=== PATIENT | female | born 1970 | race Caucasian/White ===

== ENCOUNTER 2016-08-01 18:56 | Emergency (ER) | payer OTHER ==
[~2016-08-01] VITALS: Ht 160 cm; Wt 76.3 kg
[~2016-08-01 18:56] MED LIST: CALCTAB5 PO; GLC/500 PO; LEVO125T4 PO; MECL1TAB42 PO; MULT-240 PO; PRAZ1CAP10 PO; RISP3TAB3 PO; SERT50TA PO; TOPI100T45 PO; TRAZ1TAB8 PO; [UNRECOGNIZED DRUG - OTHER]
[2016-08-01 19:02] VITALS: TEMP 36.8; Ht 160 cm; Wt 76.3 kg
[2016-08-01] MEDS ORDERED: KETOROLAC TROMETHAMINE 30 MG/ML VIAL IV STA (19:06)
[2016-08-01 19:11] VITALS: O2SAT 97
[2016-08-01 19:33] LABS: BASO % 0.4 %; BASO ABS # 0.03 K/uL (0-0.2); COMPLETE YES; EOS % 1.2 %; HEMATOCRIT 39.3 % (37-47); IG% 0.1 %; LYMPH % 39.2 %; LYMPH ABS # 3.27 K/uL (1.2-3.4); MEAN CELL VOLUME 89.7 fL (80-100); MEAN CORPUSCULAR HEMOGLOBIN 31.3 pg (25-34); MEAN CORPUSCULAR HGB CONC 34.9 g/dl (32-36); MEAN PLATELET VOLUME 9.8 fL (7.4-10.4); MONO % 9.2 %; NEUT % 49.9 %; PLATELET COUNT 221 K/uL (130-400); RED BLOOD COUNT 4.38 M/uL (4.2-5.4); WHITE BLOOD COUNT 8.34 K/uL (4.8-10.8)
--- NOTE | 2016-08-01 19:39 | DIAGNOSTIC IMAGING REPORT ---
SINGLE VIEW CHEST CLINICAL HISTORY: Fever. Sepsis. Atypical chest pain. FINDINGS: An AP, portable, upright chest radiograph is compared to study dated 05/12/2014. The examination is degraded by portable technique and large body habitus. The cardiomediastinal silhouette is unremarkable. There are low lung volumes and bibasilar atelectasis. The lungs and pleural spaces are otherwise clear. No pneumothorax is seen. The bony thorax is grossly intact. IMPRESSION: No acute cardiopulmonary abnormality. Electronically signed by: Leroy Maria M.D. 08/01/2016 7:38 PM Dictated Date/Time: 08/01/2016 7:37 PM
[2016-08-01] MEDS ORDERED: HALO5TAB PO (19:43)
[2016-08-01] MEDS ORDERED: CGN1 PO (19:43)
[2016-08-01] MEDS ORDERED: RISP1TAB68 PO (19:43)
[2016-08-01] MEDS ORDERED: HALO10TA17 PO (19:43)
[2016-08-01] MEDS ORDERED: CHOL20009 PO (19:43)
[2016-08-01] MEDS ORDERED: TRAZ100T29 PO (19:43)
[2016-08-01] MEDS ORDERED: LEVO75TA PO (19:43)
[2016-08-01] MEDS ORDERED: CALC-393 PO (19:43)
[2016-08-01] MEDS ORDERED: TPM/50 PO (19:43)
[2016-08-01 19:44] LABS: PROTHROMBIN TIME (PATIENT) 10.9 SECONDS (9.0-12.0)
[2016-08-01] MEDS ORDERED: POLY335019 PO (19:46)
[2016-08-01] MEDS ORDERED: DOCU-94 PO (19:46)
[2016-08-01 19:48] LABS: ALT/SGPT 20 U/L (12-78); BLOOD UREA NITROGEN 8 mg/dl (7-18); BUN/CREATININE RATIO 8.1 (10-20); CALCIUM 9.1 mg/dl (8.5-10.1); CARBON DIOXIDE 23 mmol/L (21-32); CHLORIDE 108 mmol/L (98-107); GLUCOSE 104 mg/dl (70-99); POTASSIUM 3.5 mmol/L (3.5-5.1); SODIUM 142 mmol/L (136-145)
[2016-08-01 19:53] LABS: ALKALINE PHOSPHATASE 71 U/L (45-117); AST/SGOT 12 U/L (15-37)
--- NOTE | 2016-08-01 20:18 | EMERGENCY ROOM VISIT NOTE ---
History Report prepared by Jeana: Kaylan Murguia Under the Supervision of: Dr. Issac Bergman D.O. First contact with patient: 18:59 Chief Complaint: CHEST PAIN Stated Complaint: CHEST PAIN History of Present Illness The patient is a 46 year old female who presents to the Emergency Room with complaints of worsening chest pain with onset this evening. The patient is a resident at [facility] and her aide is with her. En route to the ED, the patient received one nitroglycerin dose and 324 mg of aspirin. The patient stated to nursing staff that these medications did not alleviate her pain. The patient states that her chest pain is worse when is moves or touches her chest. Source of History: patient Onset: this evening Position: chest Quality: other (chest pain) Timing: worsening Modifying Factors (Worsening): movement, other (touching her chest ) Review of Systems See HPI for pertinent positives & negatives. A total of 10 systems reviewed and were otherwise negative. Past Medical & Surgical Medical Problems: (1) Auditory hallucination (2) Auditory hallucinations (3) Bilateral tubal ligation (4) Chest pain (5) Depression (6) Depression (7) Depression (8) Depression with suicidal ideation (9) Diabetes mellitus (10) Feeling suicidal (11) Hypothyroidism (12) Mental retardation (13) Moderate recurrent major depression (14) Suicidal ideation (15) Suicidal ideation Family History FHx: cancer FHx: cardiovascular disease Social History Smoking Status: Former Smoker Alcohol Use: none Drug Use: none Marital Status: Housing Status: lives alone Occupation Status: disabled Current/Historical Medications Scheduled Benztropine Mesylate (Cogentin), 1 MG PO TID Calcium Carbonate (Calcium), 600 MG PO QPM Cholecalciferol (Vitamin D), 2,000 UNITS PO QPM Docusate Sodium (Colace), 1 CAP PO DAILY Haloperidol (Haldol), 5 MG PO DAILY Haloperidol (Haldol), 10 MG PO AMPM Levothyroxine Sodium (Synthroid), 75 MCG PO DAILY Metformin Hcl (Glucophage), 500 MG PO BID Multiple Vitamins W/ Minerals (Womens One Daily), 1 TABLET PO HS Prazosin Hcl (Prazosin), 1 MG PO QPM Risperidone (Risperdal), 1 MG PO HS Sertraline (Zoloft), 75 MG PO DAILY Topiramate (Topamax), 100 MG PO QPM Topiramate (Topamax), 50 MG PO QAM Trazodone Hcl (Trazodone), 100 MG PO HS Scheduled PRN Polyethylene Glycol 3350 (Miralax), 17 GM PO DAILY PRN for Constipation Allergies Coded Allergies: No Known Allergies (Verified , NONE, 03/01/14) PALM TREES Physical Exam Vital Signs Date Time Temp Pulse Resp B/P Pulse Ox O2 Delivery O2 Flow Rate FiO2 08/01/16 20:26 49 18 109/72 97 08/01/16 19:15 56 08/01/16 19:11 97 Room Air 08/01/16 19:02 97 Room Air 08/01/16 19:02 36.8 69 16 96/67 97 Room Air Physical Exam CONSTITUTIONAL/VITAL SIGNS: Reviewed / noted above. GENERAL: Non-toxic in appearance. INTEGUMENTARY: Warm, dry, and [place]. HEAD: Normocephalic. EYES: without scleral icterus or trauma. ENT/OROPHARYNX: clear and moist. LYMPHADENOPATHY/NECK: Is supple without lymphadenopathy or meningismus. RESPIRATORY: Lungs clear and equal. CARDIOVASCULAR: Regular rate and rhythm. GI/ABDOMEN: Soft and nontender. No organomegaly or pulsatile mass. No rebound or guarding. Normal bowel sounds. EXTREMITIES: Warm and well perfused. BACK: No CVA tenderness. NEUROLOGICAL: Intact without focal deficits. PSYCHIATRIC: normal affect. MUSCULOSKELETAL: Normally developed with good muscle tone. Medical Decision & Procedures ER Provider Diagnostic Interpretation: X ray results and stated below per my interpretation and radiology interpretation. SINGLE VIEW CHEST CLINICAL HISTORY: Fever. Sepsis. Atypical chest pain. FINDINGS: An AP, portable, upright chest radiograph is compared to study dated 05/12/2014. The examination is degraded by portable technique and large body habitus. The cardiomediastinal silhouette is unremarkable. There are low lung volumes and bibasilar atelectasis. The lungs and pleural spaces are otherwise clear. No pneumothorax is seen. The bony thorax is grossly intact. IMPRESSION: No acute cardiopulmonary abnormality. Electronically signed by: Leroy Maria M.D. 08/01/2016 7:38 PM Dictated Date/Time: 08/01/2016 7:37 PM Laboratory Results 08/01/16 18:45 Red Blood Count 4.38, Mean Corpuscular Volume 89.7, Mean Corpuscular Hemoglobin 31.3, Mean Corpuscular Hemoglobin Concent 34.9, Mean Platelet Volume 9.8, Neutrophils (%) (Auto) 49.9, Lymphocytes (%) (Auto) 39.2, Monocytes (%) (Auto) 9.2, Eosinophils (%) (Auto) 1.2, Basophils (%) (Auto) 0.4, Neutrophils # (Auto) 4.16, Lymphocytes # (Auto) 3.27, Monocytes # (Auto) 0.77, Eosinophils # (Auto) 0.10, Basophils # (Auto) 0.03 08/01/16 18:45 Test 08/01/16 18:45 White Blood Count 8.34 K/uL (4.8-10.8) Red Blood Count 4.38 M/uL (4.2-5.4) Hemoglobin 13.7 g/dL (12.0-16.0) Hematocrit 39.3 % (37-47) Mean Corpuscular Volume 89.7 fL (80-100) Mean Corpuscular Hemoglobin 31.3 pg (25-34) Mean Corpuscular Hemoglobin Concent 34.9 g/dl (32-36) Platelet Count 221 K/uL (130-400) Mean Platelet Volume 9.8 fL (7.4-10.4) Neutrophils (%) (Auto) 49.9 % Lymphocytes (%) (Auto) 39.2 % Monocytes (%) (Auto) 9.2 % Eosinophils (%) (Auto) 1.2 % Basophils (%) (Auto) 0.4 % Neutrophils # (Auto) 4.16 K/uL (1.4-6.5) Lymphocytes # (Auto) 3.27 K/uL (1.2-3.4) Monocytes # (Auto) 0.77 K/uL (0.11-0.59) Eosinophils # (Auto) 0.10 K/uL (0-0.5) Basophils # (Auto) 0.03 K/uL (0-0.2) RDW Standard Deviation 42.5 fL (36.4-46.3) RDW Coefficient of Variation 13.0 % (11.5-14.5) Immature Granulocyte % (Auto) 0.1 % Immature Granulocyte # (Auto) 0.01 K/uL (0.00-0.02) Prothrombin Time 10.9 SECONDS (9.0-12.0) Prothromb Time International Ratio 1.0 (0.9-1.1) Activated Partial Thromboplast Time 27.1 SECONDS (21.0-31.0) Partial Thromboplastin Ratio 1.0 Anion Gap 11.0 mmol/L (3-11) Est Creatinine Clear Calc Drug Dose 68.0 ml/min Estimated GFR () 77.7 Estimated GFR (Non- 67.0 BUN/Creatinine Ratio 8.1 (10-20) Calcium Level 9.1 mg/dl (8.5-10.1) Total Bilirubin 0.3 mg/dl (0.2-1) Direct Bilirubin < 0.1 mg/dl (0-0.2) Aspartate Amino Transf (AST/SGOT) 12 U/L (15-37) Alanine Aminotransferase (ALT/SGPT) 20 U/L (12-78) Alkaline Phosphatase 71 U/L (45-117) Total Creatine Kinase 69 U/L (26-192) Creatine Kinase MB < 0.5 ng/ml (0.5-3.6) Creatine Kinase MB Ratio (0-3.0) Troponin I < 0.015 ng/ml (0-0.045) Total Protein 8.0 gm/dl (6.4-8.2) Albumin 4.2 gm/dl (3.4-5.0) Lipase 286 U/L (73-393) Laboratory results as stated above per my review. Medications Administered Medications (Trade) Dose Ordered Sig/Darian Route Start Time Stop Time Status Last Admin Dose Admin Ketorolac Tromethamine (Toradol Inj) 30 mg NOW STAT IV 08/01/16 19:06 08/01/16 19:09 DC 08/01/16 19:30 30 MG ECG Indication: chest pain Rate (beats per minute): 59 Rhythm: sinus bradycardia Findings: no acute ischemic change, no ectopy ED Course 1903: Previous medical records were reviewed. The patient was evaluated in room B4. A complete history and physical examination was performed. 1905: Toradol 30 mg IV 2015: On reevaluation, the patient is doing well. I discussed the results and findings with the patient and her aide. They verbalized agreement of the treatment plan. The patient was discharged home. Medical Decision The patient is a 46 year old female who presents to the ED with complaints of chest pain. The patient states that her symptoms started about 1 hour ago. Her pain is in the retrosternal area and seems to be worse with palpation as well as with movements. She received nitroglycerin by EMS without improvement. She also was given aspirin by mouth. The patient has no additional complaints. Denies shortness of breath, fevers or recent illness. Denies any other complaints. Twelve-lead EKG reveals a sinus rhythm with sinus arrhythmia. No acute injury. Chest x-ray did not show acute disease. CBC is normal. Troponin is negative. Complete metabolic panel was unremarkable. Lipase is negative. The patient was told the results. She is felt to be stable for discharge per cheese treated with Toradol IV. Differential diagnosis: Etiologies such as cardiac ischemia, aortic dissection, pulmonary embolism, pneumonia, pneumothorax, musculoskeletal, infections, pericarditis, myocarditis , esophageal rupture, gastrointestinal, as well as others were entertained. Impression Primary Impression: Chest wall pain Scribe Attestation The scribe's documentation has been prepared under my direction and personally reviewed by me in its entirety. I confirm that the note above accurately reflects all work, treatment, procedures, and medical decision making performed by me. Departure Information Dispostion Home / Self-Care Referrals Destiny Rangel D.O. Patient Instructions ED Chest Wall Pain [facility], [facility] Additional Instructions Follow-up with your doctor for further care and evaluation in 1-5 days if symptoms persist. Return to the emergency department for worsening or new symptoms or any concerns. You have been examined and treated today on an emergency basis only. This is not a substitute for, or an effort to provide, complete comprehensive medical care. It is impossible to recognize and treat all injuries or illnesses in a single emergency department visit. It is therefore important that you follow up closely with your doctor. Call as soon as possible for an appointment.
[2016-08-01 20:26] VITALS: BP 109/72; PULSE 49; O2SAT 97
== END 2016-08-01 20:23 | disposition home or self-care (01) ==
LOC: EDBD 18:56 → C.EDB 18:58
DX: R07.89 Other chest pain (principal); E11.9 Type 2 diabetes mellitus without complications; E03.9 Hypothyroidism, unspecified; F32.9 Major depressive disorder, single episode, unspecified; F79 Unspecified intellectual disabilities; Z79.84 Long term (current) use of oral hypoglycemic drugs; Z79.899 Other long term (current) drug therapy; Z87.891 Personal history of nicotine dependence; Z80.9 Family history of malignant neoplasm, unspecified; Z82.49 Family history of ischemic heart disease and other diseases of the circulatory system

== ENCOUNTER 2016-10-11 10:49 | Inpatient (IN) | payer OTHER ==
[~2016-10-11] VITALS: Ht 157.5 cm; Wt 78.2 kg
[~2016-10-11 10:49] MED LIST changes: +BENZ-89 PO; +CALC-393 PO; -CALCTAB5 PO; +CHOL20009 PO; +DOCU-94 PO; +HALO10TA17 PO; +HALO5TAB PO; -LEVO125T4 PO; +LEVO75TA PO; -MECL1TAB42 PO; +POLY335019 PO; +RISP1TAB68 PO; -RISP3TAB3 PO; +TPM/50 PO; +TRAZ100T29 PO; -TRAZ1TAB8 PO; -[UNRECOGNIZED DRUG - OTHER]
[2016-10-11 11:49] LABS: BASO % 0.3 %; BASO ABS # 0.03 K/uL (0-0.2); COMPLETE YES; EOS % 0.1 %; HEMATOCRIT 40.2 % (37-47); IG% 0.2 %; LYMPH % 25.5 %; LYMPH ABS # 2.33 K/uL (1.2-3.4); MEAN CELL VOLUME 91.8 fL (80-100); MEAN CORPUSCULAR HEMOGLOBIN 31.1 pg (25-34); MEAN CORPUSCULAR HGB CONC 33.8 g/dl (32-36); MEAN PLATELET VOLUME 9.2 fL (7.4-10.4); MONO % 9.2 %; NEUT % 64.7 %; PLATELET COUNT 233 K/uL (130-400); RED BLOOD COUNT 4.38 M/uL (4.2-5.4); WHITE BLOOD COUNT 9.15 K/uL (4.8-10.8)
[2016-10-11 11:51] LABS: URINE APPEARANCE CLEAR (CLEAR); URINE BILIRUBIN NEG (NEG); URINE COLOR YELLOW; URINE NITRITE NEG (NEG); URINE SPECIFIC GRAVITY 1.006 (1.000-1.030); UROBILINOGEN NEG (NEG); ZZUR CULT IF INDIC CLEAN CATCH NO
[2016-10-11 11:58] LABS: MANUAL MICROSCOPIC REQUIRED? NO; REVIEW REQ? NO
[2016-10-11 12:16] LABS: BUN/CREATININE RATIO 11.4 (10-20); CREATININE 0.89 mg/dl (0.60-1.20)
[2016-10-11 12:24] LABS: BENZODIAZEPINE, URINE NEG (NEG); COCAINE,URINE NEG (NEG); PHENCYCLIDINE, URINE NEG (NEG)
[2016-10-11 12:25] LABS: ACETAMINOPHEN < 2 ug/ml (10-30)
[2016-10-11 12:26] LABS: ALB/GLOB RATIO 1.1 (0.9-2); THYROID STIMULATING HORMONE 3.77 uIu/ml (0.300-4.500)
[2016-10-11] MEDS ORDERED: BISMUTH SUBSALICYLATE PER ML OMNICELL CHARGE PO PRN (14:45)
[2016-10-11] MEDS ORDERED: MAGNESIUM HYDROXIDE SUSP 30 ML UDC PO PRN (14:45)
[2016-10-11] MEDS ORDERED: ALUMINUM/MAGNESIUM SUSP 30 ML UDC PO PRN (14:45)
[2016-10-11] MEDS ORDERED: ACETAMINOPHEN 325 MG TAB PO PRN (14:45)
[2016-10-11] MEDS ORDERED: SODIUM CHLORIDE 0.65% NA SOLN 45 ML (OCEAN) PRN (14:45)
[2016-10-11] MEDS ORDERED: POLYETHYLENE (MIRALAX) 17 GM PACK PO PRN (14:45)
[2016-10-11] MEDS ORDERED: hydrOXYzine HCL 25 MG TAB PO PRN ×2 (14:45)
[2016-10-11 14:51] VITALS: O2SAT 99
[2016-10-11] MEDS: HALOPERIDOL 5 MG TAB PO SCH ×2 (15:51→21:36)
[2016-10-11 16:19] VITALS: BP 116/82; TEMP 37.1; Ht 157.5 cm; Wt 78.2 kg
--- NOTE | 2016-10-11 17:01 | EMERGENCY ROOM VISIT NOTE ---
History Report prepared by Jeana: Shakila Gerber Under the Supervision of: Dr. Parveen Mitchell M.D. First contact with patient: 11:53 Chief Complaint: MENTAL HEALTH EVALUATION Stated Complaint: PSYCHIATRIC,HEARING VOICES History of Present Illness The patient is a 46 year old female who presents to the Emergency Room with complaints of persistent auditory hallucinations starting last night. She is here with staff from [facility]. She is hearing voices that tell her to hurt herself. She is trying to ignore them, but they are still telling her to cut her wrist. She feels like hurting herself because the voices are telling her to. She has heard voices in the past before. She cannot identify anything that might have triggered the voices again. The patient denies being in any pain. The staff says that there have not been any changes to her medications. She has not had any fever, vomiting, or illness recently. The history is limited due to the patient's intellectual disability. Source of History: patient, caregiver History Limited By: other (intellectual disability) Onset: last night Position: other (mental health) Quality: other (auditory hallucinations) Timing: other (persistent) Associated Symptoms: No fevers, No vomiting Note: Pt denies any pain. Review of Systems Limited due to the patient's intellectual disability. Past Medical & Surgical Medical Problems: (1) Auditory hallucination (2) Auditory hallucinations (3) Bilateral tubal ligation (4) Chest pain (5) Depression (6) Depression (7) Depression (8) Depression with suicidal ideation (9) Diabetes mellitus (10) Feeling suicidal (11) Hypothyroidism (12) Mental retardation (13) Moderate recurrent major depression (14) PCOS (polycystic ovarian syndrome) (15) Suicidal ideation (16) Suicidal ideation Family History FHx: cancer FHx: cardiovascular disease Social History Smoking Status: Former Smoker Alcohol Use: none Drug Use: none Marital Status: single Housing Status: lives alone Occupation Status: disabled Current/Historical Medications Scheduled Benztropine Mesylate (Cogentin), 1 MG PO TID Calcium Carbonate (Calcium), 600 MG PO QPM Cholecalciferol (Vitamin D), 2,000 UNITS PO QPM Docusate Sodium (Colace), 1 CAP PO DAILY Haloperidol (Haldol), 5 MG PO DAILY Haloperidol (Haldol), 10 MG PO AMPM Levothyroxine Sodium (Synthroid), 75 MCG PO DAILY Multiple Vitamins W/ Minerals (Womens One Daily), 1 TABLET PO QAM Prazosin Hcl (Prazosin), 1 MG PO QPM Risperidone (Risperdal), 1 MG PO HS Sertraline (Zoloft), 75 MG PO DAILY Topiramate (Topamax), 100 MG PO QPM Topiramate (Topamax), 50 MG PO QAM Trazodone Hcl (Trazodone), 100 MG PO HS Scheduled PRN Polyethylene Glycol 3350 (Miralax), 17 GM PO DAILY PRN for Constipation Allergies Coded Allergies: NO KNOWN DRUG ALLERGIES (Verified Allergy, Mild, `, 10/11/16) ALLERGIC PALM TREES [place] (Verified Allergy, Unknown, PALM TREE, 10/11/16) Physical Exam Vital Signs Date Time Temp Pulse Resp B/P Pulse Ox O2 Delivery O2 Flow Rate FiO2 10/11/16 12:44 85 18 118/71 99 Room Air 10/11/16 11:04 37.1 69 18 116/76 99 Room Air Physical Exam Constitutional: Vital signs reviewed. Eyes: Pupils are equal round reactive to light. Conjunctiva are noninjected. ENT: Pharynx is clear without erythema or exudate. Mucous membranes are moist. Neck supple without meningeal signs. Respiratory: Clear to auscultation bilaterally. Breath sounds are equal bilaterally. Cardiovascular: Regular rate and rhythm. No rubs or gallops. GI: Soft, nondistended and nontender. Bowel sounds are present. Musculoskeletal: No peripheral edema. No lacerations to the wrist. Integumentary: No cyanosis. Neurological: The patient is awake and alert. No focal deficits. Psychiatric: She is not tearful or manic. Medical Decision & Procedures Laboratory Results 10/11/16 11:40 Red Blood Count 4.38, Mean Corpuscular Volume 91.8, Mean Corpuscular Hemoglobin 31.1, Mean Corpuscular Hemoglobin Concent 33.8, Mean Platelet Volume 9.2, Neutrophils (%) (Auto) 64.7, Lymphocytes (%) (Auto) 25.5, Monocytes (%) (Auto) 9.2, Eosinophils (%) (Auto) 0.1, Basophils (%) (Auto) 0.3, Neutrophils # (Auto) 5.92, Lymphocytes # (Auto) 2.33, Monocytes # (Auto) 0.84, Eosinophils # (Auto) 0.01, Basophils # (Auto) 0.03 10/11/16 11:40 Test 10/11/16 11:30 10/11/16 11:40 Urine Color YELLOW Urine Appearance CLEAR (CLEAR) Urine pH 8.0 (4.5-7.5) Urine Specific [place] 1.006 (1.000-1.030) Urine Protein NEG (NEG) Urine Glucose (UA) NEG (NEG) Urine Ketones NEG (NEG) Urine Occult Blood NEG (NEG) Urine Nitrite NEG (NEG) Urine Bilirubin NEG (NEG) Urine Urobilinogen NEG (NEG) Urine Leukocyte Esterase SMALL (NEG) Urine WBC (Auto) 1-5 /hpf (0-5) Urine RBC (Auto) 0-4 /hpf (0-4) Urine Hyaline Casts (Auto) 1-5 /lpf (0-5) Urine Epithelial Cells (Auto) 5-10 /lpf (0-5) Urine Bacteria (Auto) NEG (NEG) Urine Opiates Screen NEG (NEG) Urine Methadone, Qualitative NEG (NEG) Urine Barbiturates NEG (NEG) Urine Phencyclidine (PCP) Level NEG (NEG) Ur Amphetamine/Methamphetamine NEG (NEG) MDMA (Ecstasy) Screen NEG (NEG) Urine Benzodiazepines Screen NEG (NEG) Urine Cocaine Metabolite NEG (NEG) Urine Marijuana (THC) NEG (NEG) White Blood Count 9.15 K/uL (4.8-10.8) Red Blood Count 4.38 M/uL (4.2-5.4) Hemoglobin 13.6 g/dL (12.0-16.0) Hematocrit 40.2 % (37-47) Mean Corpuscular Volume 91.8 fL (80-100) Mean Corpuscular Hemoglobin 31.1 pg (25-34) Mean Corpuscular Hemoglobin Concent 33.8 g/dl (32-36) Platelet Count 233 K/uL (130-400) Mean Platelet Volume 9.2 fL (7.4-10.4) Neutrophils (%) (Auto) 64.7 % Lymphocytes (%) (Auto) 25.5 % Monocytes (%) (Auto) 9.2 % Eosinophils (%) (Auto) 0.1 % Basophils (%) (Auto) 0.3 % Neutrophils # (Auto) 5.92 K/uL (1.4-6.5) Lymphocytes # (Auto) 2.33 K/uL (1.2-3.4) Monocytes # (Auto) 0.84 K/uL (0.11-0.59) Eosinophils # (Auto) 0.01 K/uL (0-0.5) Basophils # (Auto) 0.03 K/uL (0-0.2) RDW Standard Deviation 45.1 fL (36.4-46.3) RDW Coefficient of Variation 13.5 % (11.5-14.5) Immature Granulocyte % (Auto) 0.2 % Immature Granulocyte # (Auto) 0.02 K/uL (0.00-0.02) Anion Gap 7.0 mmol/L (3-11) Est Creatinine Clear Calc Drug Dose 75.7 ml/min Estimated GFR () 89.5 Estimated GFR (Non- 77.2 BUN/Creatinine Ratio 11.4 (10-20) Calcium Level 9.0 mg/dl (8.5-10.1) Total Bilirubin 0.3 mg/dl (0.2-1) Aspartate Amino Transf (AST/SGOT) 13 U/L (15-37) Alanine Aminotransferase (ALT/SGPT) 27 U/L (12-78) Alkaline Phosphatase 77 U/L (45-117) Total Protein 7.9 gm/dl (6.4-8.2) Albumin 4.1 gm/dl (3.4-5.0) Globulin 3.8 gm/dl (2.5-4.0) Albumin/Globulin Ratio 1.1 (0.9-2) Thyroid Stimulating Hormone (TSH) 3.770 uIu/ml (0.300-4.500) Salicylates Level 2.4 mg/dl (2.8-20) Acetaminophen Level < 2 ug/ml (10-30) Ethyl Alcohol mg/dL < 3.0 mg/dl (0-3) Laboratory results as reviewed by me. ED Course 1155: The patient was evaluated in room A7. A complete history and physical exam was performed. 1425: [address] [place] [address] has evaluated the patient. She will most likely be admitted to [address] [place] [address]. 1445: The patient has been accepted to [address] [place] [address] for further management. Medical Decision This is a 46-year-old female who presents for mental health evaluation. I did perform a limited focused review of portions of the patient's old chart on the electronic medical record. The patient was admitted in [address] [place] [address] for major depressive disorder with psychotic features. She is noted to have a moderate to severe intellectual disability. I did evaluate the patient as noted above. The patient is presenting with auditory command hallucinations and suicidal ideation. I did personally review the patient's urine drug screen as described above. I did order and review the patient's blood work as noted in the electronic medical record. I did medically clear the patient. She was evaluated by [facility]. and admitted to S behavioral unit for inpatient psychiatric care. Impression Primary Impression: Mood disorder Additional Impression: Suicidal ideation Scribe Attestation The scribe's documentation has been prepared under my direct and personally reviewed by me in its entirety. I confirm that the note above accurately reflects all work, treatment, procedures, and medical decision making performed by me. Departure Information Dispostion Mental Health Acute Care Referrals Destiny Rangel D.O. (PCP) Forms HOME CARE DOCUMENTATION FORM, IMPORTANT VISIT INFORMATION Patient Instructions My [facility] Problem Qualifiers
[2016-10-11] MEDS ORDERED: BENZTROPINE MESYLATE 1 MG TAB PO SCH (21:00)
[2016-10-11] MEDS: TOPIRAMATE 100 MG TAB PO SCH (21:35)
[2016-10-11] MEDS: CALCIUM CARBONATE 1250MG TAB PO SCH (21:35)
[2016-10-11] MEDS: RISPERIDONE 1 MG TAB PO SCH (21:36)
[2016-10-11] MEDS: BENZTROPINE MESYLATE 1 MG TAB PO SCH (21:36)
[2016-10-11] MEDS: CHOLECALCIFEROL 1000 INTER.UNIT TAB PO SCH (21:36)
[2016-10-11] MEDS: TRAZODONE HCL 100 MG TAB PO SCH (21:36)
[2016-10-11] MEDS: PRAZOSIN HCL 1 MG CAP PO SCH (21:37)
[2016-10-12 07:07] VITALS: BP_SYST 118; BP_SYST 122; BP_DIAS 78; BP_DIAS 82; PULSE 54; PULSE 62; TEMP 36.4
[2016-10-12] MEDS: LEVOTHYROXINE 75 MCG TAB PO SCH (08:16)
[2016-10-12] MEDS: DOCUSATE SODIUM 100 MG CAP PO SCH (09:00)
[2016-10-12] MEDS: HALOPERIDOL 5 MG TAB PO SCH ×3 (09:00→21:21)
[2016-10-12] MEDS: BENZTROPINE MESYLATE 1 MG TAB PO SCH ×3 (09:00→21:21)
[2016-10-12] MEDS: CEROVITE ADV FORMULA TAB PO SCH (09:01)
[2016-10-12] MEDS: TOPIRAMATE 25 MG TAB PO SCH (09:01)
[2016-10-12] MEDS: SERTRALINE HCL 50 MG TAB PO SCH (09:02)
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
[2016-10-12] MEDS ORDERED: TUBERCULIN SKIN TEST 5 TU in SYRINGE 0 ML ID ONE (14:00)
[2016-10-12] MEDS ORDERED: METFORMIN HCL 500 MG TAB PO SCH (17:45)
[2016-10-12] MEDS: PRAZOSIN HCL 1 MG CAP PO SCH (21:21)
[2016-10-12] MEDS: TOPIRAMATE 100 MG TAB PO SCH (21:21)
[2016-10-12] MEDS: CHOLECALCIFEROL 1000 INTER.UNIT TAB PO SCH (21:21)
[2016-10-12] MEDS: TRAZODONE HCL 100 MG TAB PO SCH (21:21)
[2016-10-12] MEDS: CALCIUM CARBONATE 1250MG TAB PO SCH (21:21)
[2016-10-12] MEDS: RISPERIDONE 1 MG TAB PO SCH (21:23)
[2016-10-13 07:08] VITALS: BP_SYST 103; BP_SYST 110; BP_DIAS 68; BP_DIAS 72; PULSE 48; PULSE 69; TEMP 36.4
[2016-10-13] MEDS: LEVOTHYROXINE 75 MCG TAB PO SCH (07:48)
[2016-10-13] MEDS: BENZTROPINE MESYLATE 1 MG TAB PO SCH ×3 (08:03→21:17)
[2016-10-13] MEDS: CEROVITE ADV FORMULA TAB PO SCH (08:04)
[2016-10-13] MEDS: DOCUSATE SODIUM 100 MG CAP PO SCH (08:04)
[2016-10-13] MEDS: HALOPERIDOL 5 MG TAB PO SCH ×3 (08:04→21:17)
[2016-10-13] MEDS: TOPIRAMATE 25 MG TAB PO SCH (08:05)
[2016-10-13] MEDS: SERTRALINE HCL 50 MG TAB PO SCH (08:06)
[2016-10-13 08:11] LABS: CHOLESTEROL/HDL RATIO 5.1
--- NOTE | 2016-10-13 15:06 | Psychiatric Progress Notes ---
Progress Note Date of Service Oct 13, 2016. Interval History Milady Loredo is a 46-year-old female white female who currently lives in [facility]. Patient has a history of severe psychotic depression and mental retardation. Milady Loredo was admitted on a 201 voluntary commitment and reported auditory hallucinations telling her to hurt herself by cutting. She was unable to contract for safety outside the hospital. Patient is a limited historian due to her intellectual disability. Chief Complaint "pretty good today". Subjective Patient was seen & assessed interval progress reviewed with nursing. Patient has been participating in unit programming. She had reported a depressed mood to staff yesterday and rated her mood as 2/10. Today she describes her mood as "good." She says that she is no longer hearing voices telling her to harm herself. She denies anxiety. She denies any side effects from her medication. She can not explain why she is taking both Haldol and Risperdal. She reports that she slept well even though staff report that she slept for 5.5 hours. Review of Systems Constitutional: No chills, No fatigue, No fever, No problem reported, No sweats , No weakness, No weight loss Cardiovascular: No PND, No chest pain, No claudication, No edema, No orthopnea , No palpitations, No problem reported Neurologic: No balance problems, No memory loss, No numbness/tingling, No paralysis, No problem reported, No vertigo, No weakness Sleep Information Total Hours of Sleep: 5.50 Meal Information Percent of Breakfast Consumed: 100 Percent of Lunch Consumed: 100 Percent of Dinner Consumed: 100 Mental Status Exam During interview pt is: alert and oriented, cooperative Appearance: appropriately dressed, disheveled, other (older than stated age) Eye contact is: good Motor behavior is: steady gait & station Speech: normal in rate, rhythm & volume, other (occcasional slow response) Affect: mood congruent, blunted Mood is: other (patient describes mood as "good.") Thought process: concrete Suicidal thought are: denied Homicidal thoughts are: denied Hallucinations: denies auditory, denies visual Cognition: memory grossly intact, attention grossly intact Intelligence estimated to be: below average Insight: limited Judgement: limited Impression Patient is a 46 year old female with an extensive history of auditory hallucinations telling her to harm herself in some way. Today she reports that she is no longer hearing voices telling her to harm herself. We will continue to assess this patient who has demonstrated this pattern in the past and if she continues to deny thoughts or harming herself or voices telling her to harm herself, she will discharge back to the [facility]. She requires supportive care and coordination with her current outpatient providers. Plan (1) Auditory hallucinations 10/12 1. Patient admitted to a locked unit and placed on q 15 minute safety checks 2. Continue outpatient medications at home doses. Historically patient has not benefited from changes to her medications as her symptoms tend to resolve with supportive treatment. 3. Monitoring on an atypical antipsychotic: FBS and lipid profile in am 4. Meeting with case managers - Coordinate care with current outpatient providers including SHAWN Melendez and psych provider, Christine HERNÁNDEZ at the [facility] psych clinic. 5. Encourage participation in unit groups and programming. 10/13 Continue current medications. Fasting labs: FBS 94; Triglycerides and cholesterol both elevated at 211. Discharge / Aftercare Planning Primary Care Physician: Name: Dr. Rangel Therapist: Name: [facility] Psych Clinic Visual Journalist: Name: Milady Arias, U Supports Coordinator for [facility] at [facility] Visit Code E&M Code: 01618 Inventory Assets Strengths: willingness for treatment supportive living environment good relationship with outpatient providers Needs: Use her coping skills and safety plan. Risk Factors Assessment /single/: Yes Mental Health Diagnoses: Yes Substance use disorders: No Previous attempt: No Family history of suicide: No Previous psychiatric stay: Yes Hopelessness: No Smoker: No Protective Factors Assessment Buddhist beliefs: No : No Responsible for young children: No Stable relationships: Yes Good rapport with provider: Yes Data Vital Signs Last 24 Hrs: Date Time Temp Pulse Resp B/P Pulse Ox O2 Delivery O2 Flow Rate FiO2 10/13/16 07:08 36.4 48 18 103/68 69 110/72 Meds Administered Last 24 Hrs: Meds Administered (Past 24Hrs) Medications (Trade) Dose Ordered Sig/Darian Route Start Time Stop Time Status Last Admin Dose Admin Docusate Sodium (coLACE CAP) 100 mg DAILY PO 10/12/16 09:00 11/11/16 08:59 10/13/16 08:04 100 MG Haloperidol (Haldol Tab) 5 mg DAILY@1500 PO 10/11/16 15:18 11/10/16 15:17 10/12/16 15:06 5 MG Levothyroxine Sodium (Synthroid Tab) 75 mcg DAILYBB PO 10/12/16 08:00 11/11/16 07:59 10/13/16 07:48 75 MCG Multivitamins/ Minerals (Multivitamin W/ Minerals Tab) 1 tab QAM PO 10/12/16 09:00 11/11/16 08:59 10/13/16 08:04 1 TAB Risperidone (Risperdal Tab) 1 mg HS PO 10/11/16 21:00 11/10/16 20:59 10/12/16 21:23 1 MG Sertraline HCl (Zoloft Tab) 75 mg DAILY PO 10/12/16 09:00 11/11/16 08:59 10/13/16 08:06 75 MG Topiramate (Topamax Tab) 50 mg QAM PO 10/12/16 09:00 11/11/16 08:59 10/13/16 08:05 50 MG Topiramate (Topamax Tab) 100 mg QPM PO 10/11/16 21:00 11/10/16 20:59 10/12/16 21:21 100 MG Trazodone HCl (Desyrel Tab) 100 mg HS PO 10/11/16 21:00 11/10/16 20:59 10/12/16 21:21 100 MG Calcium Carbonate (oS-Ishaan 500 TAB) 1,250 mg QPM PO 10/11/16 21:00 11/10/16 20:59 10/12/16 21:21 1,250 MG Cholecalciferol (Vitamin D Tab) 2,000 inter.unit QPM PO 10/11/16 21:00 11/10/16 20:59 10/12/16 21:21 2,000 INTER.UNIT Prazosin HCl (Prazosin) 1 mg HS PO 10/11/16 22:00 11/10/16 21:59 10/12/16 21:21 1 MG Haloperidol (Haldol Tab) 10 mg BID PO 10/11/16 22:00 11/10/16 21:59 10/13/16 08:04 10 MG Benztropine Mesylate 1 mg 1 mg 0900,1500,2200 PO 10/11/16 22:00 11/10/16 21:59 10/13/16 08:03 1 MG Tuberculin PPD/ Syringe (Ppd Skin Test/ Syringe) 0.1 ml @ 0 mls/hr ONE ONCE ID 10/12/16 14:00 10/12/16 14:01 DC 10/12/16 14:20 0.1 MLS/HR Lab Results Last 24 Hrs: Last 24 Hours Test 10/13/16 07:25 Fasting Glucose 94 mg/dl Triglycerides Level 211 mg/dl Cholesterol Level 211 mg/dl HDL Cholesterol 41 mg/dl LDL Cholesterol, Calculated 128 mg/dl VLDL Cholesterol, Calculated 42 mg/dl Cholesterol/HDL Ratio 5.1
[2016-10-13] MEDS: TOPIRAMATE 100 MG TAB PO SCH (21:17)
[2016-10-13] MEDS: CHOLECALCIFEROL 1000 INTER.UNIT TAB PO SCH (21:17)
[2016-10-13] MEDS: PRAZOSIN HCL 1 MG CAP PO SCH (21:17)
[2016-10-13] MEDS: TRAZODONE HCL 100 MG TAB PO SCH (21:17)
[2016-10-13] MEDS: CALCIUM CARBONATE 1250MG TAB PO SCH (21:17)
[2016-10-13] MEDS: RISPERIDONE 1 MG TAB PO SCH (21:18)
[2016-10-14 06:50] VITALS: BP_SYST 113; BP_SYST 116; BP_DIAS 79; BP_DIAS 80; PULSE 62; PULSE 85; TEMP 36.4
[2016-10-14] MEDS: LEVOTHYROXINE 75 MCG TAB PO SCH (07:56)
[2016-10-14] MEDS: DOCUSATE SODIUM 100 MG CAP PO SCH (08:34)
[2016-10-14] MEDS: BENZTROPINE MESYLATE 1 MG TAB PO SCH (08:34)
[2016-10-14] MEDS: HALOPERIDOL 5 MG TAB PO SCH (08:34)
[2016-10-14] MEDS: SERTRALINE HCL 50 MG TAB PO SCH (08:35)
[2016-10-14] MEDS: TOPIRAMATE 25 MG TAB PO SCH (08:35)
[2016-10-14] MEDS: CEROVITE ADV FORMULA TAB PO SCH (08:35)
--- NOTE | 2016-10-14 11:21 | Discharge Instructions ---
Discharge Information Report Includes Report will include the: Discharge Instructions & Summary Admission Admission Date / Time: Oct 11, 2016 at 14:46 Reason for Admission: Psychotic Disorder Discharge Discharge Diagnosis / Problem: Major depression, recurrent, severe with psychosis. Intellectual disability Condition at Discharge: Fair Discharge Goals Goal(s): Improve function, Improve disease control, Learn about illness, Therapeutic intervention Activity Recommendations Activity Limitations: per Instructions/Follow-up section . Instructions / Follow-Up Instructions / Follow-Up . SPECIAL CARE INSTRUCTIONS: 1. Follow through with your scheduled aftercare appointments. If unable to keep an appointment, please call to reschedule. 2. Take your medication only as prescribed. Medication should not be changed or stopped without the approval of your doctor. In the event of worsening symptoms or concerns about side effects, contact your doctor immediately. 3. Utilize new healthy coping skills, anger management skills, and stress management skills learned during your hospitalization. Journal feelings and process them with a support person. Identify stressors or situations that may result in relapse, deterioration or inappropriate behaviors and develop a plan to deal with those issues. 4. If your coping skills are ineffective and you are in crisis, contact your outpatient providers for direction. If unable to reach your providers, please call the [facility] AT or go to the closest Emergency Room. 5. Avoid alcohol and un-prescribed drugs. 6. You have been provided with the Mental Health Advance Directives Pamphlet for your review. AFTERCARE APPOINTMENTS: * Please call your insurance company prior to your scheduled appointment to confirm your aftercare providers are covered. Take your insurance information to your appointments. . Discharge / Aftercare Planning Primary Care Physician: Name: Dr. Rangel Therapist: Name Of Therapist: [facility] Roll Icer Machine: Name: Milday Arias, [facility] Supports Coordinator for Elysia PATEL at [facility] Partial or Psych Rehab: Name: Dr. You, [facility] . Follow-Up Care Plan for Follow-Up Care: See above. Current Hospital Diet Patient's current hospital diet: Regular Diet Discharge Diet Recommended Diet: Regular Diet Procedures Procedures Performed: No Pending Studies Pending Studies at Discharge: No Medical Emergencies . Who to Call and When: Medical Emergencies: For questions or emergencies related to your hospital stay, please contact the Inpatient Behavioral Health Unit at [phone]. A quantitative developer is on-call 11/01 for the Behavioral Health Unit for emergencies At any time you feel your situation is an emergency, you may also call 911 immediately. . Non-Emergent Contact Non-Emergency issues call your: Primary Care Provider, Psychiatrist, Therapist , Roll Icer Machine Past History Medical & Surgical History: (1) Diabetes mellitus (2) Hypothyroidism Advance Directives Existing Advance Directive: No Do You Have an Existing Mental: No Existing Living Will: No Existing Power of Parts Administrator: No Advance Directives Info Given: To Pt/S.O. Advance Directives Reason: Declines as Mental Health Visit. Discharge Summary Admission HPI Per the Admitting provider: The patient is a 46 year old female who presented to the Emergency Room on 10/11 with complaints of persistent auditory hallucinations starting the day before. She lives in the [facility] and was brought in by staff from [facility]. She reports that she is hearing voiced telling her to kill herself by "breaking or cutting one of those cards" and using it to cut her arm and she makes vertical cutting motions are her forearm. She reports that she has been trying to ignore the voices but they continue and she did not feel safe. Patient has been admitted to in the multiple times in the past for similar symptoms. Due to a history of frequent visits to the ER for complaints of auditory hallucinations, a plan was put in place for her to contact her immigration case manager and use her coping skills before coming to the emergency room. This has seemed to decrease the number of ER visits over the past couple years. Today she reports that she continues to hear voices telling her to harm herself. She is trying to ignore them. She cannot identify any trigger for this episode of hallucinations. She reports that her mood has been "good." She reports that she hasn't been sleeping well "maybe 3 hours" but can not tell me how long this has been the case. She does report some dreams about her mother and brother and then says "they are good dreams." She reports "I slept good here last night." Her appetite is good, She reports enjoying activities such as "art class." She denies anxiety or panic. She reports that she has been taking her medication with help from [facility] staff. She sees Marycruz HERNÁNDEZ at the [facility] psych clinic but does not know when her last appointment was but thinks she has one in 2 weeks. Admission Exam Per the Admitting provider: Please see admission H&P. Consultations None. Hospital Course (1) Auditory hallucinations Diagnosis is MDD, recurrent, severe with psychosis and intellectual disability 10/12 1. Patient admitted to a locked unit and placed on q 15 minute safety checks 2. Continue outpatient medications at home doses. Historically patient has not benefited from changes to her medications as her symptoms tend to resolve with supportive treatment. 3. Monitoring on an atypical antipsychotic: FBS and lipid profile in am 4. Meeting with immigration case manager - Coordinate care with current outpatient providers including SHAWN Melendez and psych provider, Christine HERNÁNDEZ at the [facility] psych clinic. 5. Encourage participation in unit groups and programming. 10/13 Continue current medications. Fasting labs: FBS 94; Triglycerides and cholesterol both elevated at 211. 10/14 AH and SI have resolved. Mood consistently good. No med changes made, [facility] staff to pick her up today. Risk Factors Assessment : Yes /single/: Yes Higher / Fall in social status: No Access to guns: No Health problems: Yes Mental Health Diagnoses: Yes Substance use disorders: No Previous attempt: No Family history of suicide: No Previous psychiatric stay: Yes Hopelessness: No Smoker: No Protective Factors Assessment Buddhism beliefs: No : No Responsible for young children: No Employed: No Stable relationships: Yes Good rapport with provider: Yes Absence of risk factors above: Yes (risk factors were mitigated by admitting the patient to the hospital, monitoring her symptoms on the inpatient unit, adjusting her chronic medical conditions, involving her in groups and therapy on the unit, working on healthy coping skills and her discharge safety plan, coordinating care with her long-term staff, and providing a safe environment. Her auditory hallucinations and suicidal thoughts resolved quickly in the setting of the inpatient unit, and she is requesting discharge today, which long-term staff are in agreement with. She is no longer at acute risk of harm to herself, she can be managed as an outpatient at this time. He does not have significant risk factors for harm to others.) Day of Discharge Assessment Hospital course: The patient was calm and cooperative throughout her hospital stay. Her auditory hallucinations and suicidal thoughts resolved quickly in the supportive milieu of the unit. She was continued on her home medications without any changes, and appeared to tolerate these well. She attended and participated appropriately in groups and therapy on the unit. Her interactions with staff and peers were appropriate, and she performed her ADLs independently. Although her mood was initially low, it quickly improved, and her affect was bright and reactive. She ate 100% of meals, and slept well throughout her stay. Day of discharge assessment: The patient states that her mood is "good." She denies auditory hallucinations and suicidal thoughts, stating that she has not experienced these symptoms since the first day she was admitted. She denies any problems with her medications, and feels they're helpful. She cannot offer any insight into triggers that might have exacerbated her symptoms prior to admission. She would like to leave today and return to the long-term, and staff are scheduled to pick her up after lunch. She denies any concerns with discharge. Well nourished, well developed WF appearing stated age. Casually dressed and adequately groomed. Calm and cooperative. Seated in NAD, with fair eye contact and no abnormal movements. Speech is normal rate, volume, and tone. Mood is "good," and affect is stable and congruent. Thoughts are concrete but goal directed. The patient denied suicidal and homicidal ideation and was able to safety plan. No paranoia, delusions, or hallucinations, and did not appear to be responding to internal stimuli. Cognition is concrete, and intelligence is below average. Alert and oriented to person, place and time. Insight and and judgment are fair. Laboratory Test 10/11/16 11:30 10/11/16 11:40 10/13/16 07:25 Urine Color YELLOW Urine Appearance CLEAR Urine pH 8.0 Urine Specific Anthony 1.006 Urine Protein NEG Urine Glucose (UA) NEG Urine Ketones NEG Urine Occult Blood NEG Urine Nitrite NEG Urine Bilirubin NEG Urine Urobilinogen NEG Urine Leukocyte Esterase SMALL Urine WBC (Auto) 1-5 Urine RBC (Auto) 0-4 Urine Hyaline Casts (Auto) 1-5 Urine Epithelial Cells (Auto) 5-10 Urine Bacteria (Auto) NEG Urine Synthetic Stimulants Pending Urine Opiates Screen NEG Urine Methadone, Qualitative NEG Urine Barbiturates NEG Urine Phencyclidine (PCP) Level NEG Ur Amphetamine/Methamphetamine NEG MDMA (Ecstasy) Screen NEG Urine Benzodiazepines Screen NEG Urine Cocaine Metabolite NEG Cannabinoids Comment Pending Urine Synthetic Cannabinoids Pending Ur Synthetic Cannabinoids Confirm Pending Urine Marijuana (THC) NEG White Blood Count 9.15 Red Blood Count 4.38 Hemoglobin 13.6 Hematocrit 40.2 Mean Corpuscular Volume 91.8 Mean Corpuscular Hemoglobin 31.1 Mean Corpuscular Hemoglobin Concent 33.8 Platelet Count 233 Mean Platelet Volume 9.2 Neutrophils (%) (Auto) 64.7 Lymphocytes (%) (Auto) 25.5 Monocytes (%) (Auto) 9.2 Eosinophils (%) (Auto) 0.1 Basophils (%) (Auto) 0.3 Neutrophils # (Auto) 5.92 Lymphocytes # (Auto) 2.33 Monocytes # (Auto) 0.84 Eosinophils # (Auto) 0.01 Basophils # (Auto) 0.03 RDW Standard Deviation 45.1 RDW Coefficient of Variation 13.5 Immature Granulocyte % (Auto) 0.2 Immature Granulocyte # (Auto) 0.02 Sodium Level 144 Potassium Level 4.0 Chloride Level 110 Carbon Dioxide Level 27 Anion Gap 7.0 Blood Urea Nitrogen 10 Creatinine 0.89 Est Creatinine Clear Calc Drug Dose 75.7 Estimated GFR () 89.5 Estimated GFR (Non- 77.2 BUN/Creatinine Ratio 11.4 Random Glucose 94 Calcium Level 9.0 Total Bilirubin 0.3 Aspartate Amino Transferase (AST) 13 Alanine Aminotransferase (ALT) 27 Alkaline Phosphatase 77 Total Protein 7.9 Albumin 4.1 Globulin 3.8 Albumin/Globulin Ratio 1.1 Thyroid Stimulating Hormone (TSH) 3.770 Salicylates Level 2.4 Acetaminophen Level < 2 Ethyl Alcohol mg/dL < 3.0 Fasting Glucose 94 Triglycerides Level 211 Cholesterol Level 211 HDL Cholesterol 41 LDL Cholesterol, Calculated 128 VLDL Cholesterol, Calculated 42 Cholesterol/HDL Ratio 5.1 Total Time Total Time Spent (min): Greater than 30 minutes Total Time Included: examination of the patient, discharge planning, medication reconciliation Tobacco Cessation at Discharge Smoking Status: Former Smoker FDA approved Prescription: non-smoker
[2016-10-14] MEDS ORDERED: PPD CHECK ONE (14:00)
[2016-10-16 09:33] LABS: SYNTHETIC CANNABINOIDS QL URIN NEGATIVE (Negative)
[2017-02-14] MEDS ORDERED: NAPR250T3 PO (06:02)
== END 2016-10-14 14:50 | disposition home or self-care (01) | DRG 885 ==
LOC: C.EDB 10:50 → C.MHU 14:46
PROVIDERS: ADMIT Psychiatry & Neurology Psychiatry; ATTEND Psychiatry & Neurology Psychiatry
DX: F33.3 Major depressive disorder, recurrent, severe with psychotic symptoms (principal); R45.851 Suicidal ideations; F79 Unspecified intellectual disabilities; E03.9 Hypothyroidism, unspecified; E28.2 Polycystic ovarian syndrome; Z87.891 Personal history of nicotine dependence; Z79.899 Other long term (current) drug therapy

== ENCOUNTER 2016-12-08 23:32 | Emergency (ER) | payer OTHER ==
[~2016-12-08 23:32] MED LIST changes: -GLC/500 PO
[2016-12-08 23:42] VITALS: TEMP 36.7
[2016-12-09 00:12] LABS: HEMATOCRIT 38.1 % (37-47); MEAN CELL VOLUME 90.9 fL (80-100); MEAN CORPUSCULAR HEMOGLOBIN 30.5 pg (25-34); MEAN CORPUSCULAR HGB CONC 33.6 g/dl (32-36); MEAN PLATELET VOLUME 9.1 fL (7.4-10.4); PLATELET COUNT 202 K/uL (130-400); RED BLOOD COUNT 4.19 M/uL (4.2-5.4); WHITE BLOOD COUNT 9.87 K/uL (4.8-10.8)
[2016-12-09] MEDS ORDERED: FLNIN/ NAE (00:12)
[2016-12-09 00:28] LABS: BLOOD UREA NITROGEN 9 mg/dl (7-18); BUN/CREATININE RATIO 10.2 (10-20); CALCIUM 9.5 mg/dl (8.5-10.1); CARBON DIOXIDE 26 mmol/L (21-32); CHLORIDE 110 mmol/L (98-107); CREATININE 0.88 mg/dl (0.60-1.20); GLUCOSE 92 mg/dl (70-99); POTASSIUM 3.8 mmol/L (3.5-5.1); SODIUM 144 mmol/L (136-145)
--- NOTE | 2016-12-09 00:32 | EMERGENCY ROOM VISIT NOTE ---
History Report prepared by Jeana: Bienvenido Baez Under the Supervision of: Dr. Christina Collins D.O. First contact with patient: 23:50 Chief Complaint: MENTAL HEALTH EVALUATION Stated Complaint: SUICIDAL THOUGHTS History of Present Illness The patient is a 46 year old female who presents to the Emergency Room from [facility] with complaints of persistent suicidal ideation occurring today. The patient refused to take her medications last night. As per Ary, staff member from [facility], the patient was told that she needs to start taking her medications again which made her anxious and depression. She told [facility] staff that she was feeling suicidal and wanted to jump off of the roof. She lives in the basement of her building and does not have access to the roof. The patient currently continues to complain of suicidal ideation. She denies any history of suicide attempt. The patient also complains of hearing voices. She was recently hospitalized for a mental health evaluation and currently feels as though she needs to be hospitalized again. She was evaluated by [facility] on field and brought to the Emergency Room. She lives alone. She reports a normal appetite and a normal fluid intake. The patient denies chest pain, shortness of breath, nausea, vomiting, abdominal pain, lower extremity swelling, or any other complaints. She also denies any drug or alcohol use. Source of History: patient Onset: today Position: other (global) Quality: other (suicidal ideation) Timing: other (persistent) Associated Symptoms: No chest pain, No SOB, No nausea, No vomiting, No abdominal pain Review of Systems See HPI for pertinent positives & negatives. A total of 10 systems reviewed and were otherwise negative. Past Medical & Surgical Medical Problems: (1) Auditory hallucination (2) Auditory hallucinations (3) Bilateral tubal ligation (4) Chest pain (5) Depression (6) Depression (7) Depression (8) Depression with suicidal ideation (9) Diabetes mellitus (10) Feeling suicidal (11) Hypothyroidism (12) Mental retardation (13) Moderate recurrent major depression (14) PCOS (polycystic ovarian syndrome) (15) Suicidal ideation (16) Suicidal ideation Family History FHx: cancer FHx: cardiovascular disease Social History Smoking Status: Never Smoker Alcohol Use: none Drug Use: none Marital Status: single Housing Status: lives alone Occupation Status: disabled Current/Historical Medications Scheduled Benztropine Mesylate (Cogentin), 1 MG PO TID Calcium Carbonate (Calcium), 600 MG PO QPM Cholecalciferol (Vitamin D), 2,000 UNITS PO QPM Docusate Sodium (Colace), 1 CAP PO DAILY Fluticasone Propionate (Fluticasone Propionate), 1 SPRAY MARI DAILY Haloperidol (Haldol), 5 MG PO DAILY Haloperidol (Haldol), 10 MG PO AMPM Levothyroxine Sodium (Synthroid), 75 MCG PO DAILY Multiple Vitamins W/ Minerals (Womens One Daily), 1 TABLET PO QAM Prazosin Hcl (Prazosin), 1 MG PO QPM Risperidone (Risperdal), 1 MG PO HS Sertraline (Zoloft), 75 MG PO DAILY Topiramate (Topamax), 100 MG PO QPM Topiramate (Topamax), 50 MG PO QAM Trazodone Hcl (Trazodone), 100 MG PO HS Scheduled PRN Polyethylene Glycol 3350 (Miralax), 17 GM PO DAILY PRN for Constipation Allergies Coded Allergies: NO KNOWN DRUG ALLERGIES (Verified Allergy, Mild, `, 12/09/16) ALLERGIC PALM TREES [place] Palm [place] (Verified Allergy, Unknown, PALM TREE, 12/09/16) Physical Exam Vital Signs Date Time Temp Pulse Resp B/P (MAP) Pulse Ox O2 Delivery O2 Flow Rate FiO2 12/08/16 23:42 36.7 49 18 122/74 98 Room Air Physical Exam HEENT: Head - normocephalic and atraumatic Pupils are equal, round, and reactive to light. Extraocular eye muscles are intact, and sclera are anicteric. Nose - moist nasal mucosa without discharge. Mouth - moist buccal mucosa. Oropharynx is nonerythematous and there is no tonsillar exudate or edema noted. Neck: Supple; no JVD, nuchal rigidity, cervical lymphadenopathy. Heart: Regular rate and rhythm. There is a normal S1 and S2 with no murmurs, clicks, or gallops appreciated. Lungs: Clear to auscultation bilaterally with no wheezes, rales, or rhonchi. Abdomen: Soft, completely nontender, nondistended, with good bowel sounds. There are no palpable pulsatile masses or hepatosplenomegaly. There is no guarding, rigidity, or rebound noted. Extremities: No evidence of cyanosis, clubbing, or edema. There are easily palpable peripheral pulses. Skin: warm and dry with good turgor and no rashes. Psychiatric: Flat affect, makes good eye contact, admits to suicidal ideation with a plan to jump from the roof. Medical Decision & Procedures Laboratory Results 12/09/16 00:02 12/09/16 00:02 Test 12/08/16 23:54 12/09/16 00:02 Urine Opiates Screen NEG (NEG) Urine Methadone, Qualitative NEG (NEG) Urine Barbiturates NEG (NEG) Urine Phencyclidine (PCP) Level NEG (NEG) Ur Amphetamine/Methamphetamine NEG (NEG) MDMA (Ecstasy) Screen POS (NEG) Urine Benzodiazepines Screen NEG (NEG) Urine Cocaine Metabolite NEG (NEG) Urine Marijuana (THC) NEG (NEG) Red Blood Count 4.19 M/uL (4.2-5.4) Mean Corpuscular Volume 90.9 fL (80-100) Mean Corpuscular Hemoglobin 30.5 pg (25-34) Mean Corpuscular Hemoglobin Concent 33.6 g/dl (32-36) RDW Standard Deviation 44.0 fL (36.4-46.3) RDW Coefficient of Variation 13.4 % (11.5-14.5) Mean Platelet Volume 9.1 fL (7.4-10.4) Anion Gap 8.0 mmol/L (3-11) Estimated GFR () 90.7 Estimated GFR (Non- 78.2 BUN/Creatinine Ratio 10.2 (10-20) Calcium Level 9.5 mg/dl (8.5-10.1) Thyroid Stimulating Hormone (TSH) 7.150 uIu/ml (0.300-4.500) Salicylates Level < 1.7 mg/dl (2.8-20) Acetaminophen Level < 2 ug/ml (10-30) Ethyl Alcohol mg/dL < 3.0 mg/dl (0-3) Laboratory results per my review. Procedure Topamax Tab 50 mg PO, Zoloft Tab 75 mg PO, Haldol Tab 10 mg PO, Synthroid Tab 75 mcg PO ED Course 2350: Past medical records reviewed. The patient was evaluated in room A08. A complete history and physical exam was performed. Labs were drawn as above. Mobile crisis performed and assessment in the field. 0245: The patient was felt to be medically cleared. A bed search is currently in progress. 0410: I signed 201 and waiting response from [facility]. 0439: The patient is currently asleep. She was turned down at [facility]. A bed search is now in progress at the [facility]. 0541: I reevaluated the patient who is resting comfortably. She has been accepted at the [facility]. The patient will be evaluated for further management and care. 0645: Topamax Tab 50 mg PO, Zoloft Tab 75 mg PO, Haldol Tab 10 mg PO 0647: Synthroid Tab 75 mcg PO Medical Decision The patient presents to the Emergency Room with complaints of suicidal ideation. Differential diagnosis includes but is not limited to mood disorder, thought disorder, mediation noncompliance, paranoia, suicidal ideation. Her labs showed normal white count, stable H&H, TSH high at 7.1, normal glucose and renal function. Negative alcohol, Tylenol, and Aspirin. Tox screen is positive for ecstasy unlikely to be from MDMA. I attest that I have personally reviewed the patient's current medication list. Patient was found to have normal blood pressure on screening and does not require follow-up. The patient has stopped taking some of her medications. She is having suicidal thoughts and is hearing voices. She is willing to admit herself voluntarily. The [facility] has accepted her. Impression Primary Impression: Suicidal ideation Scribe Attestation The scribe's documentation has been prepared under my direction and personally reviewed by me in its entirety. I confirm that the note above accurately reflects all work, treatment, procedures, and medical decision making performed by me. Departure Information Dispostion Mental Health Acute Care Referrals Destiny Rangel D.O. (PCP) Patient Instructions [facility]
[2016-12-09 00:50] LABS: BENZODIAZEPINE, URINE NEG (NEG); COCAINE,URINE NEG (NEG); PHENCYCLIDINE, URINE NEG (NEG)
[2016-12-09 00:51] LABS: ACETAMINOPHEN < 2 ug/ml (10-30)
[2016-12-09] MEDS ORDERED: SERTRALINE HCL 100 MG TAB PO STA (06:45)
[2016-12-09] MEDS ORDERED: TOPIRAMATE 50 MG TAB PO STA (06:45)
[2016-12-09] MEDS ORDERED: HALOPERIDOL 5 MG TAB PO STA (06:45)
[2016-12-09] MEDS ORDERED: LEVOTHYROXINE 75 MCG TAB PO STA (06:47)
[2016-12-09 08:31] VITALS: BP 121/74; PULSE 72; O2SAT 99
[2017-02-14] MEDS ORDERED: NAPR250T3 PO (06:02)
== END 2016-12-09 08:32 ==
LOC: C.EDB 23:33 → C.EDA 12-09 08:32
DX: R45.851 Suicidal ideations (principal); R44.0 Auditory hallucinations; F32.9 Major depressive disorder, single episode, unspecified; E11.9 Type 2 diabetes mellitus without complications; E03.9 Hypothyroidism, unspecified; F79 Unspecified intellectual disabilities; E28.2 Polycystic ovarian syndrome; Z98.51 Tubal ligation status

== ENCOUNTER 2017-02-14 04:05 | Inpatient (IN) | payer OTHER ==
[~2017-02-14] VITALS: Ht 154.9 cm; Wt 89.5 kg
[~2017-02-14 04:05] MED LIST changes: -BENZ-89 PO; +CGN1 PO; +FLNIN/ NAE
[2017-02-14] MEDS ORDERED: NURSING VERBAL MED ORDER ONE (04:45)
[2017-02-14 04:51] LABS: HEMATOCRIT 38.7 % (37-47); MEAN CELL VOLUME 91.5 fL (80-100); MEAN CORPUSCULAR HEMOGLOBIN 31.7 pg (25-34); MEAN CORPUSCULAR HGB CONC 34.6 g/dl (32-36); MEAN PLATELET VOLUME 9.1 fL (7.4-10.4); PLATELET COUNT 205 K/uL (130-400); RED BLOOD COUNT 4.23 M/uL (4.2-5.4); WHITE BLOOD COUNT 8.52 K/uL (4.8-10.8)
[2017-02-14 05:02] LABS: URINE APPEARANCE CLEAR (CLEAR); URINE BILIRUBIN NEG (NEG); URINE COLOR YELLOW; URINE NITRITE NEG (NEG); UROBILINOGEN NEG (NEG)
[2017-02-14 05:03] LABS: MANUAL MICROSCOPIC REQUIRED? YES; REVIEW REQ? NO
[2017-02-14 05:20] LABS: BUN/CREATININE RATIO 9.9 (10-20); CALCIUM 9.2 mg/dl (8.5-10.1); CREATININE 1.1 mg/dl (0.60-1.20); POTASSIUM 3.6 mmol/L (3.5-5.1)
[2017-02-14 05:22] LABS: URINE BACTERIA NEG (NEG); URINE RBC 0-4 /hpf (0-4)
[2017-02-14 05:30] LABS: THYROID STIMULATING HORMONE 7.1 uIu/ml (0.300-4.500)
[2017-02-14 05:33] LABS: BENZODIAZEPINE, URINE NEG (NEG); COCAINE,URINE NEG (NEG); PHENCYCLIDINE, URINE NEG (NEG)
[2017-02-14 05:54] VITALS: BP 133/82; PULSE 95; TEMP 36.4; Ht 154.9 cm; Wt 89.5 kg
[2017-02-14 05:55] LABS: ACETAMINOPHEN < 2 ug/ml (10-30)
[2017-02-14] MEDS ORDERED: NPR/250 PO (06:02)
[2017-02-14] MEDS ORDERED: [UNRECOGNIZED DRUG - CODE] PO (06:03)
[2017-02-14 06:10] VITALS: O2SAT 100
--- NOTE | 2017-02-14 06:15 | EMERGENCY ROOM VISIT NOTE ---
History Report prepared by Jeana: Shakila Gerber Under the Supervision of: Dr. Christina Collins D.O. First contact with patient: 04:16 Chief Complaint: MENTAL HEALTH EVALUATION Stated Complaint: HEARING VOICES History of Present Illness The patient is a 46 year old female who presents to the Emergency Room with complaints of persistent auditory hallucinations starting yesterday. She called [facility] who told her to present to the ED. The voices are telling her to use a chair to jump on the floor. She denies doing anything to hurt herself recently. She is taking her medications as directed. She denies any abdominal pain, leg cramping, urinary symptoms or rash. Her bowel movements have been normal. She has been eating and drinking well. She last had inpatient psychiatric care at the [facility] 2 months ago. Source of History: patient, caregiver Onset: yesterday Position: other (global) Quality: other (auditory hallucinations) Timing: other (persistent) Associated Symptoms: No abdominal pain, No urinary symptoms, No rash Note: Pt denies leg cramping. Review of Systems See HPI for pertinent positives & negatives. A total of 10 systems reviewed and were otherwise negative. Past Medical & Surgical Medical Problems: (1) Auditory hallucination (2) Auditory hallucinations (3) Bilateral tubal ligation (4) Chest pain (5) Depression (6) Depression (7) Depression (8) Depression with suicidal ideation (9) Diabetes mellitus (10) Feeling suicidal (11) Hypothyroidism (12) Mental retardation (13) Moderate recurrent major depression (14) PCOS (polycystic ovarian syndrome) (15) Suicidal ideation (16) Suicidal ideation Family History FHx: cancer FHx: cardiovascular disease Social History Smoking Status: Never Smoker Alcohol Use: none Drug Use: none Marital Status: single Housing Status: lives alone Occupation Status: disabled Current/Historical Medications Scheduled Benztropine Mesylate (Cogentin), 1 MG PO TID Calcium Carbonate (Calcium), 600 MG PO QPM Cholecalciferol (Vitamin D), 2,000 UNITS PO QPM Docusate Sodium (Colace), 1 CAP PO DAILY Fluticasone Propionate (Fluticasone Propionate), 1 SPRAY MARI DAILY Haloperidol (Haldol), 5 MG PO DAILY Haloperidol (Haldol), 10 MG PO AMPM Levothyroxine Sodium (Synthroid), 75 MCG PO DAILY Multiple Vitamins W/ Minerals (Womens One Daily), 1 TABLET PO QAM Sertraline (Zoloft), 75 MG PO DAILY Sodium Fluoride (Dental) (Prevident Rinse), 10 ML PO WK Topiramate (Topamax), 100 MG PO QPM Topiramate (Topamax), 50 MG PO QAM Trazodone Hcl (Trazodone), 100 MG PO HS Scheduled PRN Naproxen Tab (Naprosyn), 250 MG PO BID PRN for Pain Polyethylene Glycol 3350 (Miralax), 17 GM PO DAILY PRN for Constipation Allergies Coded Allergies: NO KNOWN DRUG ALLERGIES (Verified Allergy, Mild, `, 02/14/17) ALLERGIC PALM TREES [place] Palm [place] (Verified Allergy, Unknown, PALM TREE, 02/14/17) Physical Exam Vital Signs Date Time Temp Pulse Resp B/P (MAP) Pulse Ox O2 Delivery O2 Flow Rate FiO2 02/14/17 04:10 36.4 95 22 133/82 97 Room Air Physical Exam HEENT: Head - normocephalic and atraumatic Pupils are equal, round, and reactive to light. Extraocular eye muscles are intact, and sclera are anicteric. Nose - moist nasal mucosa without discharge. Mouth - moist buccal mucosa. Oropharynx is nonerythematous and there is no tonsillar exudate or edema noted. Neck: Supple; no JVD, nuchal rigidity, cervical lymphadenopathy. Heart: Regular rate and rhythm. There is a normal S1 and S2 with no murmurs, clicks, or gallops appreciated. Lungs: Clear to auscultation bilaterally with no wheezes, rales, or rhonchi. Abdomen: Soft, completely nontender, nondistended, with good bowel sounds. There are no palpable pulsatile masses or hepatosplenomegaly. There is no guarding, rigidity, or rebound noted. Extremities: No evidence of cyanosis, clubbing, or edema. There are easily palpable peripheral pulses. Skin: warm and dry with good turgor and no rashes. Psych: Elevated affect, admits to hearing voices telling her to jump from a chair. Medical Decision & Procedures Laboratory Results 02/14/17 04:40 02/14/17 04:40 Test 02/14/17 00:00 02/14/17 04:40 Urine Color YELLOW Urine Appearance CLEAR (CLEAR) Urine pH 8.0 (4.5-7.5) Urine Specific [place] 1.010 (1.000-1.030) Urine Protein NEG (NEG) Urine Glucose (UA) NEG (NEG) Urine Ketones NEG (NEG) Urine Occult Blood NEG (NEG) Urine Nitrite NEG (NEG) Urine Bilirubin NEG (NEG) Urine Urobilinogen NEG (NEG) Urine Leukocyte Esterase SMALL (NEG) Urine WBC (Auto) /hpf (0-5) Urine RBC (Auto) /hpf (0-4) Urine Hyaline Casts (Auto) /lpf (0-5) Urine Epithelial Cells (Auto) /lpf (0-5) Urine Bacteria (Auto) (NEG) Urine RBC 0-4 /hpf (0-4) Urine WBC 1-5 /hpf (0-5) Urine Epithelial Cells 5-10 /lpf (0-5) Urine Renal Cells 0-5 /lpf (FEW) Urine Bacteria NEG (NEG) Urine Test NEG (NEG) Urine Opiates Screen NEG (NEG) Urine Methadone, Qualitative NEG (NEG) Urine Barbiturates NEG (NEG) Urine Phencyclidine (PCP) Level NEG (NEG) Ur Amphetamine/Methamphetamine NEG (NEG) MDMA (Ecstasy) Screen NEG (NEG) Urine Benzodiazepines Screen NEG (NEG) Urine Cocaine Metabolite NEG (NEG) Urine Marijuana (THC) NEG (NEG) Red Blood Count 4.23 M/uL (4.2-5.4) Mean Corpuscular Volume 91.5 fL (80-100) Mean Corpuscular Hemoglobin 31.7 pg (25-34) Mean Corpuscular Hemoglobin Concent 34.6 g/dl (32-36) RDW Standard Deviation 44.8 fL (36.4-46.3) RDW Coefficient of Variation 13.4 % (11.5-14.5) Mean Platelet Volume 9.1 fL (7.4-10.4) Anion Gap 7.0 mmol/L (3-11) Est Creatinine Clear Calc Drug Dose 64.3 ml/min Estimated GFR () 69.2 Estimated GFR (Non- 59.7 BUN/Creatinine Ratio 9.9 (10-20) Calcium Level 9.2 mg/dl (8.5-10.1) Thyroid Stimulating Hormone (TSH) 7.100 uIu/ml (0.300-4.500) Salicylates Level < 1.7 mg/dl (2.8-20) Acetaminophen Level < 2 ug/ml (10-30) Ethyl Alcohol mg/dL < 3.0 mg/dl (0-3) Laboratory results per my review. ED Course 0523: The patient was evaluated in room A5. A complete history and physical examination were performed. Nursing notes and previous electronic medical records were reviewed. Labs were drawn as above. 0547: [address] [place] [address] staff is evaluating the patient and she has been accepted to [address] [place] [address]. She will sign herself in voluntarily. 0615: Laboratory studies were reviewed with the patient. Medical Decision The patient is a 46 year old female who presents to the ED with auditory hallucinations. Differential diagnosis includes thought disorder, mood disorder , anxiety, suicidal ideation. Labs: urine negative, urinalysis normal, TSH 7.1, glucose 101, normal renal function, negative alcohol, urine tox screen negative, normal white count , normal H&H. This is a 46-year-old female patient with a long history of mental health issues who presents to the emergency department with auditory hallucinations. The patient explains the voices are commanding her to do things. She is willing to admit herself voluntarily for inpatient psychiatric care. Medication Reconcilliation Current Medication List: was personally reviewed by me Blood Pressure Screening Patient's blood pressure: Normal blood pressure Blood pressure disposition: Did not require urgent referral Impression Primary Impression: Thought disorder Scribe Attestation The scribe's documentation has been prepared under my direction and personally reviewed by me in its entirety. I confirm that the note above accurately reflects all work, treatment, procedures, and medical decision making performed by me. Departure Information Dispostion Mental Health Acute Care Referrals Destiny Rangel D.O. (PCP) Patient Instructions My [facility]
[2017-02-14 06:27] VITALS: BP 110/75; PULSE 95; TEMP 36.4
[2017-02-14] MEDS ORDERED: BISMUTH SUBSALICYLATE PER ML OMNICELL CHARGE PO PRN (06:30)
[2017-02-14] MEDS ORDERED: ACETAMINOPHEN 325 MG TAB PO PRN (06:30)
[2017-02-14] MEDS ORDERED: MAGNESIUM HYDROXIDE SUSP 30 ML UDC PO PRN (06:30)
[2017-02-14] MEDS ORDERED: ALUMINUM/MAGNESIUM SUSP 30 ML UDC PO PRN (06:30)
[2017-02-14] MEDS ORDERED: hydrOXYzine HCL 25 MG TAB PO PRN ×2 (06:30)
[2017-02-14] MEDS ORDERED: SODIUM CHLORIDE 0.65% NA SOLN 45 ML (OCEAN) PRN (06:30)
[2017-02-14] MEDS ORDERED: NAPROXEN 250 MG TAB PO PRN (11:45)
[2017-02-14] MEDS: BENZTROPINE MESYLATE 1 MG TAB PO SCH ×2 (14:08→21:37)
[2017-02-14] MEDS: HALOPERIDOL 5 MG TAB PO SCH ×2 (14:08→21:39)
--- NOTE | 2017-02-14 16:24 | Psychiatric History & Physical ---
History Date of Service Feb 14, 2017. Identifying Data Milady Loredo is a 46-year-old female who currently lives in [facility]. Milady Loredo was admitted on a 201 voluntary commitment. Patient is admitted from home. The patient was brought to the ED by the ambulance. Information provided by the patient is considered to be reliable. Chief Complaint "[place] voices to kill myself". History of Present Illness Patient is a 46 year old female. Resides at [facility]. Had ongoing conflicts with a animal caregiver at penitentiary which triggered auditory command hallucinations to hang herself. Patient is on a hospital diversionary plan due to multiple prior hospitalizations but despite penitentiary staff's attempt to de-escalate situation patient was unable to contract for safety. She had been admitted to the [facility] in November 2016 and it appears that Risperdal and Prazosin were discontinued and Haldol continued. Past Psychiatric History Current OP Treatment: psychiatrist, therapist, major case detective Prior Psych Hospitalizations: [facility] Access to a Gun: No Suicide Attempts: No Allergies Allergies: Coded Allergies: NO KNOWN DRUG ALLERGIES (Verified Allergy, Mild, `, 02/14/17) ALLERGIC PALM TREES [place] Palm [place] (Verified Allergy, Unknown, PALM TREE, 02/14/17) Home Medications Scheduled Benztropine Mesylate (Cogentin), 1 MG PO TID Calcium Carbonate (Calcium), 600 MG PO QPM Cholecalciferol (Vitamin D), 2,000 UNITS PO QPM Docusate Sodium (Colace), 1 CAP PO DAILY Fluticasone Propionate (Fluticasone Propionate), 1 SPRAY MARI DAILY Haloperidol (Haldol), 5 MG PO DAILY Haloperidol (Haldol), 10 MG PO AMPM Levothyroxine Sodium (Synthroid), 75 MCG PO DAILY Multiple Vitamins W/ Minerals (Womens One Daily), 1 TABLET PO QAM Sertraline (Zoloft), 75 MG PO DAILY Sodium Fluoride (Dental) (Prevident Rinse), 10 ML PO WK Topiramate (Topamax), 100 MG PO QPM Topiramate (Topamax), 50 MG PO QAM Trazodone Hcl (Trazodone), 100 MG PO HS Scheduled PRN Naproxen Tab (Naprosyn), 250 MG PO BID PRN for Pain Polyethylene Glycol 3350 (Miralax), 17 GM PO DAILY PRN for Constipation Family History FHx: cancer FHx: cardiovascular disease History of Suicide: No History of Substance Abuse: No Psychiatric History: No Alcohol Use Alcohol Use In Past 12 Months: No AUDIT Total Score: 0 Smoking Use Smoking Status: Never Smoker Substance History Denies drug use. Personal History Lives in: [place] Education: graduated from high school Relationship History: Children: none Spiritual Affiliation: no active Legal History: none Psychological Trauma History: Denies Hx Traumatic Event Review of Systems Constitutional: no symptoms reported Eyes: reports: no symptoms ENT: reports: no symptoms reported Cardiovascular: reports: no symptoms reported Respiratory: reports: no symptoms reported Gastrointestinal: no symptoms reported Genitourinary - Female: reports: no symptoms Musculoskeletal: no symptoms reported Integumentary: no symptoms reported Neurologic: reports: no symptoms Endocrine: no symptoms Hematologic / Lymphatic: no symptoms Examination Physical Examination A physical exam was performed in the ER prior to admission to the unit by Christina Collins DO. I accept that physical as correct/medical clearance for the inpatient physical exam. Vital Signs Vital Signs Past 12 Hours Date Time Temp Pulse Resp B/P (MAP) Pulse Ox O2 Delivery O2 Flow Rate FiO2 02/14/17 06:27 36.4 95 18 110/75 02/14/17 06:10 73 18 110/75 100 02/14/17 05:54 36.4 95 18 133/82 02/14/17 04:10 36.4 95 22 133/82 97 Room Air Laboratory Results Last 24 Hours Test 02/14/17 00:00 02/14/17 04:40 Urine Color YELLOW Urine Appearance CLEAR Urine pH 8.0 Urine Specific [place] 1.010 Urine Protein NEG Urine Glucose (UA) NEG Urine Ketones NEG Urine Occult Blood NEG Urine Nitrite NEG Urine Bilirubin NEG Urine Urobilinogen NEG Urine Leukocyte Esterase SMALL Urine WBC (Auto) /hpf Urine RBC (Auto) /hpf Urine Hyaline Casts (Auto) /lpf Urine Epithelial Cells (Auto) /lpf Urine Bacteria (Auto) Urine RBC 0-4 /hpf Urine WBC 1-5 /hpf Urine Epithelial Cells 5-10 /lpf Urine Renal Cells 0-5 /lpf Urine Bacteria NEG Urine Test NEG Urine Opiates Screen NEG Urine Methadone, Qualitative NEG Urine Barbiturates NEG Urine Phencyclidine (PCP) Level NEG Ur Amphetamine/Methamphetamine NEG MDMA (Ecstasy) Screen NEG Urine Benzodiazepines Screen NEG Urine Cocaine Metabolite NEG Urine Marijuana (THC) NEG White Blood Count 8.52 K/uL Red Blood Count 4.23 M/uL Hemoglobin 13.4 g/dL Hematocrit 38.7 % Mean Corpuscular Volume 91.5 fL Mean Corpuscular Hemoglobin 31.7 pg Mean Corpuscular Hemoglobin Concent 34.6 g/dl RDW Standard Deviation 44.8 fL RDW Coefficient of Variation 13.4 % Platelet Count 205 K/uL Mean Platelet Volume 9.1 fL Sodium Level 140 mmol/L Potassium Level 3.6 mmol/L Chloride Level 108 mmol/L Carbon Dioxide Level 25 mmol/L Anion Gap 7.0 mmol/L Blood Urea Nitrogen 11 mg/dl Creatinine 1.10 mg/dl Est Creatinine Clear Calc Drug Dose 64.3 ml/min Estimated GFR () 69.2 Estimated GFR (Non- 59.7 BUN/Creatinine Ratio 9.9 Random Glucose 101 mg/dl Calcium Level 9.2 mg/dl Thyroid Stimulating Hormone (TSH) 7.100 uIu/ml Salicylates Level < 1.7 mg/dl Acetaminophen Level < 2 ug/ml Ethyl Alcohol mg/dL < 3.0 mg/dl Mental Examination During interview pt is: alert and oriented, cooperative Appearance: appropriately dressed, appropriately groomed, appeared stated age Eye contact is: fair Motor behavior is: no abnormal motor movements Speech: normal in rate, rhythm & volume Affect: mood congruent Mood is: irritable Thought process: concrete Thought content: reality based without delusions Suicidal thought are: present, Plan: present, Intent: present Homicidal thoughts are: denied Hallucinations: auditory (command hallucinations to hang herself), denies visual Cognition: memory grossly intact, attention grossly intact, language grossly intact Intelligence estimated to be: below average Insight: poor Judgement: poor Impression / Recommendations Impression 46 year old female with history of multiple prior hospitalizations and chronic auditory hallucinations experienced and exacerbation of auditory hallucinations and began having auditory command hallucinations to hang herself after triggered by conflicts over the past couple weeks with a caregiver at [facility] and unable to contract for safety outside hospital. Risk Factors Assessment : Yes /single/: Yes Access to guns: No Mental Health Diagnoses: Yes Substance use disorders: No Family history of suicide: No Previous psychiatric stay: Yes Smoker: No Protective Factors Assessment Uatsdin beliefs: No : No Responsible for young children: No Recommendations (1) Auditory hallucinations -admit to locked behavioral health unit on q15 minute safety checks -continue outpatient medications and reconcile medication list with penitentiary and outpatient provider -coordinate care with major case detective, penitentiary and outpatient provider (Christine HERNÁNDEZ at [facility]). -encourage participation in groups and programming. (2) Hypothyroidism 02/14/17 -TSH level 7.1 so will increase Levothyroxine to 88 micrograms daily CPT Code Initial Hospital Care: 51009
[2017-02-14] MEDS: TOPIRAMATE 100 MG TAB PO SCH (21:37)
[2017-02-14] MEDS: TRAZODONE HCL 100 MG TAB PO SCH (21:37)
[2017-02-15 07:03] VITALS: BP 96/68; PULSE 73; TEMP 36.4
[2017-02-15] MEDS ORDERED: HALOPERIDOL 5 MG TAB PO SCH (09:00)
[2017-02-15] MEDS: BENZTROPINE MESYLATE 1 MG TAB PO SCH ×3 (10:17→21:17)
[2017-02-15] MEDS: DOCUSATE SODIUM 100 MG CAP PO SCH (10:17)
[2017-02-15] MEDS: LEVOTHYROXINE 88 MCG TAB PO SCH (10:17)
[2017-02-15] MEDS: FLUTICASONE PROPIONATE NA SPR 16 GM BTL NAE SCH (10:17)
[2017-02-15] MEDS: CEROVITE ADV FORMULA TAB PO SCH (10:18)
[2017-02-15] MEDS: TOPIRAMATE 25 MG TAB PO SCH (10:18)
[2017-02-15] MEDS: SERTRALINE HCL 50 MG TAB PO SCH (10:18)
[2017-02-15] MEDS: HALOPERIDOL 5 MG TAB PO SCH ×3 (10:18→21:18)
--- NOTE | 2017-02-15 10:34 | Psychiatric Progress Notes ---
Progress Note Date of Service Feb 15, 2017. Interval History Milady Loredo is a 46-year-old female who currently lives in [facility], has a history of ID and recurrent severe depression with psychosis, who was admitted on a 201 voluntary commitment for command AH to kill herself and SI with thoughts of hanging herself. Chief Complaint "Trying to stay calm". Subjective Patient was seen & assessed interval progress reviewed with Treatment Team. Staff report she has flat affect, has been reporting auditory hallucinations which say "bad things" and tell her not to talk to staff at [facility]. She rated her mood a 1 out of 10. She showered last evening. Staff tried to contact [facility] staff yesterday, but were not able to reach anyone. Milady reports distress today, saying she is "trying to stay calm." She feels anxious about the incident at her retirement, saying a staff member told her it was not polite to drink out of a bottle. She continues to hear voices intermittently, which tell her to "do bad things." She denies SI today, but says mood is depressed. She reports good sleep and appetite, and says she has been going to groups. Reviewed coping skills, she likes coloring, and it has been helpful to talk to peers. Sleep Information Total Hours of Sleep: 6.75 Meal Information Percent of Breakfast Consumed: 75 Percent of Lunch Consumed: 100 Percent of Dinner Consumed: 100 Mental Status Exam During interview pt is: alert and oriented, cooperative Appearance: appropriately dressed, appropriately groomed, appeared stated age Eye contact is: good Motor behavior is: steady gait & station, no abnormal motor movements Speech: normal in rate, rhythm & volume (minimal speech, nonspontaneous) Affect: mood congruent, blunted Mood is: depressed Thought process: concrete Thought content: reality based without delusions Suicidal thought are: denied Homicidal thoughts are: denied Hallucinations: auditory (voices), denies visual Cognition: memory grossly intact, attention grossly intact, language grossly intact Intelligence estimated to be: below average Insight: poor Judgement: poor Impression 46 year old female with history of multiple prior hospitalizations and chronic auditory hallucinations experienced and exacerbation of auditory hallucinations and began having auditory command hallucinations to hang herself after triggered by conflicts over the past couple weeks with a caregiver at retirement and unable to contract for safety outside hospital. Plan (1) Suicidal ideation -admit to locked behavioral health unit on q15 minute safety checks (2) Depression, major, recurrent, severe with psychosis -continue outpatient medications and reconcile medication list with retirement and outpatient provider -coordinate care with telephonic case manager, retirement and outpatient provider (Christine HERNÁNDEZ at [facility]). -encourage participation in groups and programming. 02/15 -continue home meds: sertraline 75mg, trazodone 100mg qhs, haldol 10mg bid, and benztropine 1mg tid. Has hydroxyzine prn. -get collateral from [facility] staff or telephonic case manager. (3) Hypothyroidism 02/14/17 -TSH level 7.1 so will increase Levothyroxine to 88 micrograms daily. Will need to follow up with PCP in 6-8 weeks for recheck. Discharge / Aftercare Planning Primary Care Physician: Name: Dr. Rangel Statue Maker: Name: Milady Junior Visit Code E&M Code: 76882 Risk Factors Assessment : Yes /single/: Yes Mental Health Diagnoses: Yes Substance use disorders: No Previous attempt: Yes Family history of suicide: No Previous psychiatric stay: Yes Hopelessness: No Smoker: No Protective Factors Assessment Gnosticism beliefs: No : No Responsible for young children: No Employed: Yes Stable relationships: Yes Good rapport with provider: Yes Data Vital Signs Last 24 Hrs: Date Time Temp Pulse Resp B/P (MAP) Pulse Ox O2 Delivery O2 Flow Rate FiO2 02/15/17 07:03 36.4 73 18 96/68 Meds Administered Last 24 Hrs: Meds Administered (Past 24Hrs) Medications (Trade) Dose Ordered Sig/Darian Route Start Time Stop Time Status Last Admin Dose Admin Benztropine Mesylate (Cogentin Tab) 1 mg TID PO 02/14/17 14:00 03/16/17 13:59 02/15/17 10:17 1 MG Docusate Sodium (coLACE CAP) 100 mg DAILY PO 02/15/17 09:00 03/17/17 08:59 02/15/17 10:17 100 MG Fluticasone Propionate (Flonase Nasal [place]) 1 sprays DAILY MARI 02/15/17 09:00 03/17/17 08:59 02/15/17 10:17 1 SPRAYS Levothyroxine Sodium (Synthroid Tab) 88 mcg DAILYBB PO 02/15/17 08:00 03/17/17 07:59 02/15/17 10:17 88 MCG Multivitamins/ Minerals (Multivitamin W/ Minerals Tab) 1 tab QAM PO 02/15/17 09:00 03/17/17 08:59 02/15/17 10:18 1 TAB Sertraline HCl (Zoloft Tab) 75 mg DAILY PO 02/15/17 09:00 03/17/17 08:59 02/15/17 10:18 75 MG Topiramate (Topamax Tab) 50 mg QAM PO 02/15/17 09:00 03/17/17 08:59 02/15/17 10:18 50 MG Topiramate (Topamax Tab) 100 mg QPM PO 02/14/17 21:00 03/16/17 20:59 02/14/17 21:37 100 MG Trazodone HCl (Desyrel Tab) 100 mg HS PO 02/14/17 22:00 03/16/17 21:59 02/14/17 21:37 100 MG Haloperidol (Haldol Tab) 10 mg BID PO 02/14/17 22:00 03/16/17 21:59 02/15/17 10:18 10 MG Haloperidol (Haldol Tab) 5 mg DAILY@1300 PO 02/14/17 13:00 03/16/17 12:59 02/14/17 14:08 5 MG
[2017-02-15] MEDS: TRAZODONE HCL 100 MG TAB PO SCH (21:17)
[2017-02-15] MEDS: TOPIRAMATE 100 MG TAB PO SCH (21:17)
[2017-02-16 06:43] VITALS: BP_SYST 84; BP_SYST 93; BP_DIAS 51; BP_DIAS 68; PULSE 58; PULSE 86; TEMP 36.5
[2017-02-16] MEDS: LEVOTHYROXINE 88 MCG TAB PO SCH (07:54)
[2017-02-16] MEDS: BENZTROPINE MESYLATE 1 MG TAB PO SCH ×2 (08:59→13:24)
[2017-02-16] MEDS: CEROVITE ADV FORMULA TAB PO SCH (08:59)
[2017-02-16] MEDS: TOPIRAMATE 25 MG TAB PO SCH (08:59)
[2017-02-16] MEDS: SERTRALINE HCL 50 MG TAB PO SCH (08:59)
[2017-02-16] MEDS: DOCUSATE SODIUM 100 MG CAP PO SCH (08:59)
[2017-02-16] MEDS: HALOPERIDOL 5 MG TAB PO SCH ×2 (08:59→13:24)
[2017-02-16] MEDS: FLUTICASONE PROPIONATE NA SPR 16 GM BTL NAE SCH (08:59)
[2017-02-16] MEDS ORDERED: LEVO88TA PO (10:41)
--- NOTE | 2017-02-16 10:50 | Discharge Instructions ---
Discharge Information Report Includes Report will include the: Discharge Instructions & Summary Admission Admission Date / Time: Feb 14, 2017 at 04:47 Reason for Admission: Major Depressive Disorder, Mild Id Discharge Discharge Diagnosis / Problem: Depression Condition at Discharge: Good Discharge Goals Goal(s): Decrease discomfort, Improve disease control, Prevent Disease Progression Activity Recommendations Activity Limitations: resume your previous activity . Instructions / Follow-Up Instructions / Follow-Up . SPECIAL CARE INSTRUCTIONS: 1. Follow through with your scheduled aftercare appointments. If unable to keep an appointment, please call to reschedule. 2. Take your medication only as prescribed. Medication should not be changed or stopped without the approval of your doctor. In the event of worsening symptoms or concerns about side effects, contact your doctor immediately. 3. Utilize new healthy coping skills, anger management skills, and stress management skills learned during your hospitalization. Journal feelings and process them with a support person. Identify stressors or situations that may result in relapse, deterioration or inappropriate behaviors and develop a plan to deal with those issues. 4. If your coping skills are ineffective and you are in crisis, contact your outpatient providers for direction. If unable to reach your providers, please call the CAN HELP LINE AT or go to the closest Emergency Room. 5. Avoid alcohol and un-prescribed drugs. 6. You have been provided with the Mental Health Advance Directives Pamphlet for your review. AFTERCARE APPOINTMENTS: * Please call your insurance company prior to your scheduled appointment to confirm your aftercare providers are covered. Take your insurance information to your appointments. . Discharge / Aftercare Planning Primary Care Physician: Name: Dr Rangel Date of Appointment: Feb 23, 2017 Time of Appointment: 11:15am Psychiatrist: Name: Dr Connor [facility] Date of Appointment: Mar 24, 2017 Time of Appointment: 12 noon Therapist: Name Of Therapist: Ariane Juarez [facility] Date of Appointment: Feb 17, 2017 Time of Appointment: 11:00am Garment Turner: Name: Milady Junior Partial or Psych Rehab: Name: [facility] Appointment Comments: Wednesday,,Wednesday . Follow-Up Care Plan for Follow-Up Care: The patient will return to her nursing home and her regular OP providers. Current Hospital Diet Patient's current hospital diet: Regular Diet Discharge Diet Recommended Diet: Regular Diet Procedures Procedures Performed: No Pending Studies Pending Studies at Discharge: No Medical Emergencies . Who to Call and When: Medical Emergencies: For questions or emergencies related to your hospital stay, please contact the Inpatient Behavioral Health Unit at [phone]. A triage clinician is on-call 11/01 for the Behavioral Health Unit for emergencies At any time you feel your situation is an emergency, you may also call 911 immediately. . Non-Emergent Contact Non-Emergency issues call your: Psychiatrist, Therapist Past History Medical & Surgical History: (1) Hypothyroidism (2) PCOS (polycystic ovarian syndrome) Advance Directives Existing Advance Directive: No Do You Have an Existing Mental: No Existing Living Will: No Existing Power of Tar Distributor Operator: No Advance Directives Info Given: To Pt/S.O. Advance Directives Reason: Declines as Mental Health Visit. Discharge Summary Admission HPI Per the Admitting provider: Patient is a 46 year old female. Resides at [facility]. Had ongoing conflicts with a medical care manager at nursing home which triggered auditory command hallucinations to hang herself. Patient is on a hospital diversionary plan due to multiple prior hospitalizations but despite nursing home staff's attempt to de-escalate situation patient was unable to contract for safety. She had been admitted to the [facility] in November 2016 and it appears that Risperdal and Prazosin were discontinued and Haldol continued. Hospital Course (1) Suicidal ideation -admit to locked behavioral health unit on q15 minute safety checks (2) Depression, major, recurrent, severe with psychosis -continue outpatient medications and reconcile medication list with nursing home and outpatient provider -coordinate care with case management assistant, nursing home and outpatient provider (Christine HERNÁNDEZ at [facility]). -encourage participation in groups and programming. 02/15 -continue home meds: sertraline 75mg, trazodone 100mg qhs, haldol 10mg bid, and benztropine 1mg tid. Has hydroxyzine prn. -get collateral from [facility] staff or case management assistant. (3) Hypothyroidism 02/14/17 -TSH level 7.1 so will increase Levothyroxine to 88 micrograms daily. Will need to follow up with PCP in 6-8 weeks for recheck. Risk Factors Assessment : Yes /single/: Yes Mental Health Diagnoses: Yes Substance use disorders: No Previous attempt: Yes Family history of suicide: No Previous psychiatric stay: Yes Hopelessness: No Smoker: No Protective Factors Assessment Rastafari beliefs: No : No Responsible for young children: No Employed: Yes Stable relationships: Yes Good rapport with provider: Yes Day of Discharge Assessment COURSE OF HOSPITALIZATION: The patient was admitted to our unit because of suicidal ideation in the context of a difficult relationship with a [facility] staff member. She has a long history of overusing the hospital as a means of coping and the staff at her nursing home has done a very good job establishing a plan to keep her out of the hospital. During her stay she was initially still suicidal but by today had completely stopped having suicidal ideation, was presenting with good mood and requesting to be discharged. Psychiatric medications were continued at outpatient dosing. Her TSH was found to be elevated at over 7 and so her levothyroxine was increased to 88 g per day. We will recommend follow- up with her PCP. DAY OF DISCHARGE ASSESSMENT: Today the patient says she is happy, is smiling and cooperative. She says that she is not suicidal and is ready to go home. When asked how she will deal with the stress of her relationship with this particular staff member, she says that 2 other staff members are going to talk with her. Apparently the conflict was over whether or not Milady should drink her energy drinks directly out of the bottle. She feels confident that this will not be a problem moving forward. She is denying suicidal ideation. There is a meeting scheduled for this afternoon with the staff from her nursing home, after which she will be discharged. Today she is casually and appropriately dressed and groomed. Gait and station are within normal limits. Eye contact is good. Affect is smiling. Speech is of normal rate volume and tone. Thoughts are organized, goal-directed, and without evidence of thought disorder. Recent and remote memory are intact per conversation. Intelligence is estimated to be below average. Insight and judgment are improved over admission. Laboratory Test 02/14/17 00:00 02/14/17 04:40 Urine Color YELLOW Urine Appearance CLEAR Urine pH 8.0 Urine Specific [place] 1.010 Urine Protein NEG Urine Glucose (UA) NEG Urine Ketones NEG Urine Occult Blood NEG Urine Nitrite NEG Urine Bilirubin NEG Urine Urobilinogen NEG Urine Leukocyte Esterase SMALL Urine WBC (Auto) Urine RBC (Auto) Urine Hyaline Casts (Auto) Urine Epithelial Cells (Auto) Urine Bacteria (Auto) Urine RBC 0-4 Urine WBC 1-5 Urine Epithelial Cells 5-10 Urine Renal Cells 0-5 Urine Bacteria NEG Urine Test NEG Urine Opiates Screen NEG Urine Methadone, Qualitative NEG Urine Barbiturates NEG Urine Phencyclidine (PCP) Level NEG Ur Amphetamine/Methamphetamine NEG MDMA (Ecstasy) Screen NEG Urine Benzodiazepines Screen NEG Urine Cocaine Metabolite NEG Urine Marijuana (THC) NEG White Blood Count 8.52 Red Blood Count 4.23 Hemoglobin 13.4 Hematocrit 38.7 Mean Corpuscular Volume 91.5 Mean Corpuscular Hemoglobin 31.7 Mean Corpuscular Hemoglobin Concent 34.6 RDW Standard Deviation 44.8 RDW Coefficient of Variation 13.4 Platelet Count 205 Mean Platelet Volume 9.1 Sodium Level 140 Potassium Level 3.6 Chloride Level 108 Carbon Dioxide Level 25 Anion Gap 7.0 Blood Urea Nitrogen 11 Creatinine 1.10 Est Creatinine Clear Calc Drug Dose 64.3 Estimated GFR () 69.2 Estimated GFR (Non- 59.7 BUN/Creatinine Ratio 9.9 Random Glucose 101 Calcium Level 9.2 Thyroid Stimulating Hormone (TSH) 7.100 Salicylates Level < 1.7 Acetaminophen Level < 2 Ethyl Alcohol mg/dL < 3.0 Total Time Total Time Spent (min): Greater than 30 minutes Total Time Included: examination of the patient, discharge planning, medication reconciliation, communication with other providers Tobacco Cessation at Discharge Smoking Status: Never Smoker FDA approved Prescription: non-smoker
== END 2017-02-16 16:10 | disposition home or self-care (01) | DRG 885 ==
LOC: C.EDB 04:06 → C.MHU 04:47
PROVIDERS: ADMIT Psychiatry & Neurology Psychiatry; ATTEND Psychiatry & Neurology Psychiatry
DX: F33.3 Major depressive disorder, recurrent, severe with psychotic symptoms (principal); R45.851 Suicidal ideations; F79 Unspecified intellectual disabilities; E03.9 Hypothyroidism, unspecified; Z79.899 Other long term (current) drug therapy

== ENCOUNTER 2017-02-28 22:06 | Emergency (ER) | payer OTHER ==
[~2017-02-28] VITALS: Ht 162.6 cm; Wt 90.1 kg
[~2017-02-28 22:06] MED LIST changes: -LEVO75TA PO; +LEVO88TA PO; +NPR/250 PO; -PRAZ1CAP10 PO; -RISP1TAB68 PO; +[UNRECOGNIZED DRUG - CODE] PO
[2017-02-28 22:10] VITALS: TEMP 36.4; Ht 162.6 cm; Wt 90.1 kg
[2017-02-28 23:33] LABS: URINE APPEARANCE CLEAR (CLEAR); URINE BILIRUBIN NEG (NEG); URINE COLOR YELLOW; URINE NITRITE NEG (NEG); URINE SPECIFIC GRAVITY 1.011 (1.000-1.030); UROBILINOGEN NEG (NEG); ZZUR CULT IF INDIC CLEAN CATCH NO
[2017-02-28 23:37] LABS: MANUAL MICROSCOPIC REQUIRED? NO; REVIEW REQ? NO
[2017-02-28 23:39] LABS: BASO % 0.3 %; BASO ABS # 0.03 K/uL (0-0.2); COMPLETE YES; EOS % 1.4 %; HEMATOCRIT 36.3 % (37-47); IG% 0.4 %; LYMPH % 38.3 %; LYMPH ABS # 3.45 K/uL (1.2-3.4); MEAN CELL VOLUME 90.3 fL (80-100); MEAN CORPUSCULAR HEMOGLOBIN 30.6 pg (25-34); MEAN CORPUSCULAR HGB CONC 33.9 g/dl (32-36); MEAN PLATELET VOLUME 9.1 fL (7.4-10.4); MONO % 10.8 %; NEUT % 48.8 %; PLATELET COUNT 181 K/uL (130-400); RED BLOOD COUNT 4.02 M/uL (4.2-5.4); WHITE BLOOD COUNT 9.01 K/uL (4.8-10.8)
[2017-02-28 23:59] LABS: CALCIUM 9.1 mg/dl (8.5-10.1); CREATININE 0.89 mg/dl (0.60-1.20); POTASSIUM 3.7 mmol/L (3.5-5.1)
[2017-03-01 00:01] LABS: BENZODIAZEPINE, URINE NEG (NEG); COCAINE,URINE NEG (NEG); PHENCYCLIDINE, URINE NEG (NEG)
[2017-03-01 00:10] LABS: ALB/GLOB RATIO 1.1 (0.9-2); THYROID STIMULATING HORMONE 2.3 uIu/ml (0.300-4.500)
[2017-03-01 00:20] LABS: ACETAMINOPHEN < 2 ug/ml (10-30)
[2017-03-01] MEDS ORDERED: TRAZODONE HCL 100 MG TAB PO STA (00:47)
[2017-03-01] MEDS ORDERED: BENZTROPINE MESYLATE 1 MG TAB PO STA (00:47)
--- NOTE | 2017-03-01 01:27 | EMERGENCY ROOM VISIT NOTE ---
History Report prepared by Jeana: Shailesh Coates Under the Supervision of: Dr. Parveen Mitchell M.D. First contact with patient: 23:29 Chief Complaint: MENTAL HEALTH EVALUATION Stated Complaint: HEARING VOICES History of Present Illness The patient is a 46 year old female who presents to the Emergency Room for a mental health evaluation due to hearing voices for the past three days. The patient states that she is hearing voices and they are telling her to kill herself by jumping off of a chair. The patient states that she does not feel safe at home, and she has never tried to hurt herself before. She states that she has been eating and sleeping fine, and she has not had any recent fevers. The patient lives at [facility] and is diagnosed with an intellectual disability and depression with psychosis. Source of History: patient Onset: three days ago Position: other (global) Quality: other (hearing voices) Associated Symptoms: No fevers Review of Systems See HPI for pertinent positives & negatives. A total of 10 systems reviewed and were otherwise negative. Past Medical & Surgical Medical Problems: (1) Bilateral tubal ligation (2) Chest pain (3) Depression (4) Depression, major, recurrent, severe with psychosis (5) Diabetes mellitus (6) Hypothyroidism (7) Mental retardation (8) PCOS (polycystic ovarian syndrome) Family History FHx: cancer FHx: cardiovascular disease Social History Smoking Status: Former Smoker Alcohol Use: none Drug Use: none Marital Status: single Housing Status: lives alone Occupation Status: disabled Current/Historical Medications Scheduled Benztropine Mesylate (Cogentin), 1 MG PO TID Calcium Carbonate (Calcium), 600 MG PO QPM Cholecalciferol (Vitamin D), 2,000 UNITS PO QPM Docusate Sodium (Colace), 1 CAP PO DAILY Fluticasone Propionate (Fluticasone Propionate), 1 SPRAY MARI DAILY Haloperidol (Haldol), 5 MG PO DAILY Haloperidol (Haldol), 10 MG PO AMPM Levothyroxine Sodium (Synthroid), 1 TAB PO DAILY Multiple Vitamins W/ Minerals (Womens One Daily), 1 TABLET PO QAM Sertraline (Zoloft), 75 MG PO DAILY Sodium Fluoride (Dental) (Prevident Rinse), 10 ML PO WK Topiramate (Topamax), 100 MG PO QPM Topiramate (Topamax), 50 MG PO QAM Trazodone Hcl (Trazodone), 100 MG PO HS Scheduled PRN Naproxen Tab (Naprosyn), 250 MG PO BID PRN for Pain Polyethylene Glycol 3350 (Miralax), 17 GM PO DAILY PRN for Constipation Allergies Coded Allergies: NO KNOWN DRUG ALLERGIES (Verified Allergy, Mild, `, 02/28/17) ALLERGIC PALM TREES [place] Palm Tree (Verified Allergy, Unknown, PALM TREE, 02/28/17) Physical Exam Vital Signs Date Time Temp Pulse Resp B/P (MAP) Pulse Ox O2 Delivery O2 Flow Rate FiO2 02/28/17 23:55 78 20 120/70 99 Room Air 02/28/17 22:10 36.4 53 20 122/79 98 Room Air Physical Exam Constitutional: Vital signs reviewed. Eyes: Pupils are equal round reactive to light. Conjunctiva are noninjected. ENT: Pharynx is clear without erythema or exudate. Mucous membranes are moist. Neck supple without meningeal signs. Respiratory: Clear to auscultation bilaterally. Breath sounds are equal bilaterally. Cardiovascular: Regular rate and rhythm. No rubs or gallops. GI: Soft, nondistended and nontender. Bowel sounds are present. Musculoskeletal: No peripheral edema. No lower extremity tenderness. Integumentary: No cyanosis. Neurological: The patient is awake and alert. No focal deficits. Psychiatric: Flat affect. Medical Decision & Procedures Laboratory Results 02/28/17 23:24 Red Blood Count 4.02, Mean Corpuscular Volume 90.3, Mean Corpuscular Hemoglobin 30.6, Mean Corpuscular Hemoglobin Concent 33.9, Mean Platelet Volume 9.1, Neutrophils (%) (Auto) 48.8, Lymphocytes (%) (Auto) 38.3, Monocytes (%) (Auto) 10.8, Eosinophils (%) (Auto) 1.4, Basophils (%) (Auto) 0.3, Neutrophils # (Auto ) 4.39, Lymphocytes # (Auto) 3.45, Monocytes # (Auto) 0.97, Eosinophils # (Auto ) 0.13, Basophils # (Auto) 0.03 02/28/17 23:24 Test 02/28/17 00:00 02/28/17 23:24 Urine Color YELLOW Urine Appearance CLEAR (CLEAR) Urine pH 7.0 (4.5-7.5) Urine Specific [place] 1.011 (1.000-1.030) Urine Protein NEG (NEG) Urine Glucose (UA) NEG (NEG) Urine Ketones NEG (NEG) Urine Occult Blood NEG (NEG) Urine Nitrite NEG (NEG) Urine Bilirubin NEG (NEG) Urine Urobilinogen NEG (NEG) Urine Leukocyte Esterase SMALL (NEG) Urine WBC (Auto) 1-5 /hpf (0-5) Urine RBC (Auto) 0-4 /hpf (0-4) Urine Hyaline Casts (Auto) 1-5 /lpf (0-5) Urine Epithelial Cells (Auto) 10-20 /lpf (0-5) Urine Bacteria (Auto) NEG (NEG) Urine Opiates Screen NEG (NEG) Urine Methadone, Qualitative NEG (NEG) Urine Barbiturates NEG (NEG) Urine Phencyclidine (PCP) Level NEG (NEG) Ur Amphetamine/Methamphetamine NEG (NEG) MDMA (Ecstasy) Screen NEG (NEG) Urine Benzodiazepines Screen NEG (NEG) Urine Cocaine Metabolite NEG (NEG) Urine Marijuana (THC) NEG (NEG) White Blood Count 9.01 K/uL (4.8-10.8) Red Blood Count 4.02 M/uL (4.2-5.4) Hemoglobin 12.3 g/dL (12.0-16.0) Hematocrit 36.3 % (37-47) Mean Corpuscular Volume 90.3 fL (80-100) Mean Corpuscular Hemoglobin 30.6 pg (25-34) Mean Corpuscular Hemoglobin Concent 33.9 g/dl (32-36) Platelet Count 181 K/uL (130-400) Mean Platelet Volume 9.1 fL (7.4-10.4) Neutrophils (%) (Auto) 48.8 % Lymphocytes (%) (Auto) 38.3 % Monocytes (%) (Auto) 10.8 % Eosinophils (%) (Auto) 1.4 % Basophils (%) (Auto) 0.3 % Neutrophils # (Auto) 4.39 K/uL (1.4-6.5) Lymphocytes # (Auto) 3.45 K/uL (1.2-3.4) Monocytes # (Auto) 0.97 K/uL (0.11-0.59) Eosinophils # (Auto) 0.13 K/uL (0-0.5) Basophils # (Auto) 0.03 K/uL (0-0.2) RDW Standard Deviation 44.2 fL (36.4-46.3) RDW Coefficient of Variation 13.3 % (11.5-14.5) Immature Granulocyte % (Auto) 0.4 % Immature Granulocyte # (Auto) 0.04 K/uL (0.00-0.02) Anion Gap 6.0 mmol/L (3-11) Est Creatinine Clear Calc Drug Dose 85.0 ml/min Estimated GFR () 89.5 Estimated GFR (Non- 77.2 BUN/Creatinine Ratio 16.0 (10-20) Calcium Level 9.1 mg/dl (8.5-10.1) Total Bilirubin 0.2 mg/dl (0.2-1) Aspartate Amino Transf (AST/SGOT) 15 U/L (15-37) Alanine Aminotransferase (ALT/SGPT) 23 U/L (12-78) Alkaline Phosphatase 78 U/L (45-117) Total Protein 6.9 gm/dl (6.4-8.2) Albumin 3.6 gm/dl (3.4-5.0) Globulin 3.3 gm/dl (2.5-4.0) Albumin/Globulin Ratio 1.1 (0.9-2) Thyroid Stimulating Hormone (TSH) 2.300 uIu/ml (0.300-4.500) Salicylates Level < 1.7 mg/dl (2.8-20) Acetaminophen Level < 2 ug/ml (10-30) Ethyl Alcohol mg/dL < 3.0 mg/dl (0-3) Laboratory results as reviewed by me. Medications Administered Medications (Trade) Dose Ordered Sig/Darian Route Start Time Stop Time Status Last Admin Dose Admin Trazodone HCl (Desyrel Tab) 100 mg NOW STAT PO 03/01/17 00:47 03/01/17 00:49 DC 03/01/17 01:01 100 MG Benztropine Mesylate (Cogentin Tab) 1 mg NOW STAT PO 03/01/17 00:47 03/01/17 00:49 DC 03/01/17 01:01 1 MG ED Course 2329: The patient was evaluated in room A7. A complete history and physical exam was performed. 0047: Cogentin Tab 1mg PO, Desyrel Tab 100mg PO Medical Decision This is a 46-year-old female presents for mental health evaluation. I did perform a limited focused review of portions of the patient's old chart on the electronic medical record. The patient was admitted on February 14 to mental [facility] for thought disorder. I did evaluate the patient as noted above. The patient is presenting with command hallucinations. I did review the patient's blood work as noted in the electronic medical record. The patient was medically cleared. I did treat her with her evening meds including trazodone and Cogentin. Currently the returned case inspector is attempting bed placement for the patient. The patient was signed out to Dr. cage. Medication Reconcilliation Current Medication List: was personally reviewed by me Blood Pressure Screening Patient's blood pressure: Normal blood pressure Impression Primary Impression: Mood disorder Additional Impressions: History of command hallucinations Auditory hallucinations Scribe Attestation The scribe's documentation has been prepared under my direct and personally reviewed by me in its entirety. I confirm that the note above accurately reflects all work, treatment, procedures, and medical decision making performed by me. Departure Information Dispostion Still a Patient Referrals Destiny Rangel D.O. (PCP) Patient Instructions My [facility] Problem Qualifiers
--- NOTE | 2017-03-01 08:35 | EMERGENCY ROOM VISIT NOTE ---
ED Visit Note First contact with patient: 08:07 Patient signed out to me by Dr. Mitchell. No issues reported me by nursing staff overnight. Paperwork signed in the morning for patient's transfer to an inpatient psychiatric facility.
[2017-03-01 09:19] VITALS: BP 122/74; PULSE 67; O2SAT 99
[2017-03-09 08:31] LABS: SYNTHETIC CANNABINOIDS QL URIN NEGATIVE (Negative)
== END 2017-03-01 09:20 ==
LOC: C.EDB 22:08 → C.EDA 03-01 09:20
DX: F39 Unspecified mood [affective] disorder (principal); R44.0 Auditory hallucinations; F79 Unspecified intellectual disabilities; Z98.51 Tubal ligation status; E11.9 Type 2 diabetes mellitus without complications; E03.9 Hypothyroidism, unspecified; E28.2 Polycystic ovarian syndrome; Z80.9 Family history of malignant neoplasm, unspecified; Z82.49 Family history of ischemic heart disease and other diseases of the circulatory system; Z87.891 Personal history of nicotine dependence; Z79.899 Other long term (current) drug therapy

== ENCOUNTER 2017-05-07 22:37 | Emergency (ER) | payer OTHER ==
[~2017-05-07] VITALS: Ht 152.4 cm; Wt 91.4 kg
[~2017-05-07 22:37] MED LIST changes: +BENZ-89 PO; -CGN1 PO; +NAPR250T3 PO; -NPR/250 PO
[2017-05-07 22:50] VITALS: BP 115/57; PULSE 55; TEMP 36.7; O2SAT 100; Ht 152.4 cm; Wt 91.4 kg
--- NOTE | 2017-05-08 00:09 | EMERGENCY ROOM VISIT NOTE ---
History Report prepared by Jeana: Shakila Gerber Under the Supervision of: Dr. Parveen Mitchell M.D. First contact with patient: 22:42 Chief Complaint: MENTAL HEALTH EVALUATION Stated Complaint: MHID History of Present Illness The patient is a 46 year old female who presents to the Emergency Room with complaints of persistent auditory hallucinations starting tonight. The patient has a history of hearing voices. They usually tell her to hurt herself. She states that she was all right this morning, but tonight was not a good night because she could not sleep. She was unable to sleep because of the voices. She states that she does not feel safe at home. The voices are telling her to hurt herself. The voices want her to go back to the hospital. The [facility] staff states that the patient told her that she just wanted to be in the hospital. The patient states that she likes the food here better. She also likes that she does not have to do the dishes here. Source of History: patient, caregiver Onset: tonight Position: other (global) Quality: other (auditory hallucinations) Timing: other (persistent) Note: Pt reports being unable to sleep. Review of Systems See HPI for pertinent positives & negatives. A total of 10 systems reviewed and were otherwise negative. Past Medical & Surgical Medical Problems: (1) Bilateral tubal ligation (2) Chest pain (3) Depression (4) Depression, major, recurrent, severe with psychosis (5) Diabetes mellitus (6) Hypothyroidism (7) Mental retardation (8) PCOS (polycystic ovarian syndrome) Family History FHx: cancer FHx: cardiovascular disease Social History Smoking Status: Former Smoker Alcohol Use: none Drug Use: none Marital Status: single Housing Status: lives alone Occupation Status: disabled Current/Historical Medications Scheduled Benztropine Mesylate (Cogentin), 1 MG PO TID Calcium Carbonate (Calcium), 600 MG PO QPM Cholecalciferol (Vitamin D), 2,000 UNITS PO QPM Docusate Sodium (Colace), 1 CAP PO DAILY Fluticasone Propionate (Fluticasone Propionate), 1 SPRAY MARI DAILY Haloperidol (Haldol), 5 MG PO DAILY Haloperidol (Haldol), 10 MG PO AMPM Levothyroxine Sodium (Synthroid), 1 TAB PO DAILY Multiple Vitamins W/ Minerals (Womens One Daily), 1 TABLET PO QAM Sertraline (Zoloft), 75 MG PO DAILY Sodium Fluoride (Dental) (Prevident Rinse), 10 ML PO WK Topiramate (Topamax), 100 MG PO QPM Topiramate (Topamax), 50 MG PO QAM Trazodone Hcl (Trazodone), 100 MG PO HS Scheduled PRN Naproxen Tab (Naprosyn), 250 MG PO BID PRN for Pain Polyethylene Glycol 3350 (Miralax), 17 GM PO DAILY PRN for Constipation Allergies Coded Allergies: NO KNOWN DRUG ALLERGIES (Verified Allergy, Mild, `, 05/07/17) ALLERGIC PALM TREES [place] Palm Tree (Verified Allergy, Unknown, PALM TREE, 05/07/17) Physical Exam Vital Signs Date Time Temp Pulse Resp B/P (MAP) Pulse Ox O2 Delivery O2 Flow Rate FiO2 05/07/17 22:50 36.7 55 18 115/57 100 Room Air Physical Exam Constitutional: Vital signs reviewed. Eyes: Pupils are equal round reactive to light. Conjunctiva are noninjected. ENT: Pharynx is clear without erythema or exudate. Mucous membranes are moist. Neck supple without meningeal signs. Respiratory: Clear to auscultation bilaterally. Breath sounds are equal bilaterally. Cardiovascular: Regular rate and rhythm. No rubs or gallops. GI: Soft, nondistended and nontender. Bowel sounds are present. Musculoskeletal: No peripheral edema. No lower extremity tenderness. Integumentary: No cyanosis. Neurological: The patient is awake and alert. No focal deficits. Psychiatric: Normal affect. Medical Decision & Procedures ED Course 225: The patient was evaluated in room A5. A complete history and physical exam was performed. I discussed tonight's findings with her. She verbalized agreement of the treatment plan. She was discharged home. Medical Decision This is a 46-year-old female brought here for mental health evaluation. I did perform a limited focused review of portions of the patient's old chart on the electronic medical record. The patient was seen by me on March 01 for a mental health evaluation. I did evaluate the patient as noted above. The patient states that she wants to be admitted to the hospital. Initially she stated that she was hearing voices that tell her to hurt herself. She does, however, admit that she normally hears voices. After further questioning of the patient she admitted that she just wanted to be hospitalized because she likes the food better here and she does not have to do the dishes. She was assessed by myself as well as the nurse and mental health medical case manager. She admitted all this in front of us. We therefore did not feel the patient required hospitalization. The staff member that came with her agreed. She stated that periodically the patient likes to be admitted to the hospital. She agreed that the patient did not represent a danger to herself at this time. The patient was discharged back to [facility] with the staff member. Medication Reconcilliation Current Medication List: was personally reviewed by me Blood Pressure Screening Patient's blood pressure: Normal blood pressure Blood pressure disposition: Did not require urgent referral Impression Primary Impression: Auditory hallucinations Scribe Attestation The scribe's documentation has been prepared under my direct and personally reviewed by me in its entirety. I confirm that the note above accurately reflects all work, treatment, procedures, and medical decision making performed by me. Departure Information Dispostion Home / Self-Care Referrals Destiny Rangel D.O. (PCP) Forms HOME CARE DOCUMENTATION FORM, IMPORTANT VISIT INFORMATION Patient Instructions My [facility] Additional Instructions You have been examined and treated today on an emergency basis only. This is not a substitute for, or an effort to provide, complete comprehensive medical care. It is impossible to recognize and treat all injuries or illnesses in a single emergency department visit. It is therefore important that you follow up closely with your physician. Call as soon as possible for an appointment. Return for worsening symptoms or if you develop any other concerning symptoms.
== END 2017-05-07 23:20 | disposition home or self-care (01) ==
LOC: EDBD 22:37 → C.EDA 22:38
DX: R44.0 Auditory hallucinations (principal); E11.9 Type 2 diabetes mellitus without complications; E03.9 Hypothyroidism, unspecified; F32.9 Major depressive disorder, single episode, unspecified; E28.2 Polycystic ovarian syndrome; F79 Unspecified intellectual disabilities; Z87.891 Personal history of nicotine dependence; Z79.899 Other long term (current) drug therapy; Z80.9 Family history of malignant neoplasm, unspecified; Z82.49 Family history of ischemic heart disease and other diseases of the circulatory system

== ENCOUNTER 2017-06-23 23:14 | Emergency (ER) | payer OTHER ==
[2017-06-23 23:22] VITALS: TEMP 36.8
--- NOTE | 2017-06-23 23:39 | EMERGENCY ROOM VISIT NOTE ---
History Report prepared by Jeana: Hugo Shore Under the Supervision of: Dr. Phoenix Geller M.D. First contact with patient: 23:28 Chief Complaint: MENTAL HEALTH EVALUATION Stated Complaint: HEARING VOICES History of Present Illness The patient is a 46 year old female who presents to the Emergency Room with complaints of worsening auditory hallucinations today. Per the staff at [facility], the patient normally hears voices, but the patient has expressed that she is hearing even more voices than usual, and the voices were telling her to hurt herself. The voices were not noted to tell her to hurt anyone else. Per the psychiatric watch caser, the patient was making phone calls to [facility], and [facility] recommended the patient be brought here for evaluation. Per the staff at [facility], the patient wanted to come here tonight. The patient has been noted to not be acting out at [facility], and has been her normal self. She has not been drinking alcohol or using drugs. The patient states that the voices are only telling her to hurt herself, but she has not attempted to hurt herself. She says that she is worried that she may hurt herself. The patient notes that she ate something recently that made her sick, and she has been nauseous with episodes of vomiting and diarrhea. She says that her illness has gotten a bit better, but has only eaten a little today. The patient denies any loss of consciousness, abdominal pain, or leg swelling. Source of History: patient, other (staff at [facility], psych watch caser) Onset: Today Position: other (global - auditory hallucinations) Symptom Intensity: voices telling her to hurt herself Quality: other (normally hears voices) Timing: worsening Associated Symptoms: + nausea, + vomiting, + diarrhea, No LOC, No abdominal pain Note: Associated symptoms: Worried she will hurt herself. No homicidal ideations. Denies leg swelling. Review of Systems See HPI for pertinent positives & negatives. A total of 10 systems reviewed and were otherwise negative. Past Medical & Surgical Medical Problems: (1) Bilateral tubal ligation (2) Chest pain (3) Depression (4) Depression, major, recurrent, severe with psychosis (5) Diabetes mellitus (6) Hypothyroidism (7) Mental retardation (8) PCOS (polycystic ovarian syndrome) Family History FHx: cancer FHx: cardiovascular disease Social History Smoking Status: Former Smoker Alcohol Use: none Drug Use: none Marital Status: single Housing Status: lives alone Occupation Status: disabled Current/Historical Medications Scheduled Benztropine Mesylate (Cogentin), 1 MG PO TID Calcium Carbonate (Calcium), 600 MG PO QPM Cholecalciferol (Vitamin D), 2,000 UNITS PO QPM Docusate Sodium (Colace), 1 CAP PO DAILY Fluticasone Propionate (Fluticasone Propionate), 1 SPRAY MARI DAILY Haloperidol (Haldol), 5 MG PO DAILY Haloperidol (Haldol), 10 MG PO AMPM Levothyroxine Sodium (Synthroid), 1 TAB PO DAILY Multiple Vitamins W/ Minerals (Womens One Daily), 1 TABLET PO QAM Sertraline (Zoloft), 100 MG PO QAM Sodium Fluoride (Dental) (Prevident Rinse), 10 ML PO WK Topiramate (Topamax), 100 MG PO QPM Topiramate (Topamax), 50 MG PO QAM Trazodone Hcl (Trazodone), 100 MG PO HS Scheduled PRN Naproxen Tab (Naprosyn), 250 MG PO BID PRN for Pain Polyethylene Glycol 3350 (Miralax), 17 GM PO DAILY PRN for Constipation Allergies Coded Allergies: NO KNOWN DRUG ALLERGIES (Verified Allergy, Mild, `, 06/23/17) ALLERGIC PALM TREES [place] (Verified Allergy, Unknown, PALM TREE, 06/23/17) Physical Exam Vital Signs Date Time Temp Pulse Resp B/P (MAP) Pulse Ox O2 Delivery O2 Flow Rate FiO2 06/24/17 02:58 62 16 123/65 99 06/24/17 01:34 59 16 120/69 99 Room Air 06/23/17 23:22 36.8 58 18 127/82 99 Room Air Physical Exam GENERAL: Patient is well appearing and in no acute distress. HEENT: No acute trauma, normocephalic atraumatic, mucous membranes moist, no nasal congestion, no scleral icterus. NECK: No stridor, no adenopathy, no meningismus, trachea is midline. LUNGS: No dyspnea. Clear to auscultation and equal bilaterally. No wheeze, no rhonchi. HEART: Regular rate and rhythm. No murmurs, rubs, gallops appreciated. ABDOMEN: Soft, nontender, bowel sounds positive, no masses appreciated, no peritonitis. BACK: No midline tenderness, no CVA tenderness EXTREMITIES: Normal motion all extremities, no cyanosis, no edema. NEUROLOGIC: Alert and oriented, no acute motor or sensory deficits, no focal weakness, cranial nerves grossly intact. PSYCH: Patient admits to auditory hallucinations/voices which tell her to hurt herself without specifics. SKIN: No rash, no jaundice, no diaphoresis. Medical Decision & Procedures Laboratory Results 06/23/17 23:43 Red Blood Count 4.01, Mean Corpuscular Volume 90.8, Mean Corpuscular Hemoglobin 31.9, Mean Corpuscular Hemoglobin Concent 35.2, Mean Platelet Volume 9.0, Neutrophils (%) (Auto) 47.1, Lymphocytes (%) (Auto) 41.7, Monocytes (%) (Auto) 9.1, Eosinophils (%) (Auto) 1.2, Basophils (%) (Auto) 0.4, Neutrophils # (Auto) 4.37, Lymphocytes # (Auto) 3.87, Monocytes # (Auto) 0.85, Eosinophils # (Auto) 0.11, Basophils # (Auto) 0.04 06/23/17 23:43 Test 06/23/17 23:35 06/23/17 23:43 Urine Color YELLOW Urine Appearance CLEAR (CLEAR) Urine pH 8.5 (4.5-7.5) Urine Specific [place] 1.006 (1.000-1.030) Urine Protein NEG (NEG) Urine Glucose (UA) NEG (NEG) Urine Ketones NEG (NEG) Urine Occult Blood NEG (NEG) Urine Nitrite NEG (NEG) Urine Bilirubin NEG (NEG) Urine Urobilinogen NEG (NEG) Urine Leukocyte Esterase SMALL (NEG) Urine WBC (Auto) /hpf (0-5) Urine RBC (Auto) /hpf (0-4) Urine Hyaline Casts (Auto) /lpf (0-5) Urine Epithelial Cells (Auto) /lpf (0-5) Urine Bacteria (Auto) (NEG) Urine RBC 0-4 /hpf (0-4) Urine WBC 5-10 /hpf (0-5) Urine Epithelial Cells 10-20 /lpf (0-5) Urine Bacteria 1+ (NEG) Urine Test NEG (NEG) Urine Opiates Screen NEG (NEG) Urine Methadone, Qualitative NEG (NEG) Urine Barbiturates NEG (NEG) Urine Phencyclidine (PCP) Level NEG (NEG) Ur Amphetamine/Methamphetamine NEG (NEG) MDMA (Ecstasy) Screen NEG (NEG) Urine Benzodiazepines Screen NEG (NEG) Urine Cocaine Metabolite NEG (NEG) Urine Marijuana (THC) NEG (NEG) White Blood Count 9.29 K/uL (4.8-10.8) Red Blood Count 4.01 M/uL (4.2-5.4) Hemoglobin 12.8 g/dL (12.0-16.0) Hematocrit 36.4 % (37-47) Mean Corpuscular Volume 90.8 fL (80-100) Mean Corpuscular Hemoglobin 31.9 pg (25-34) Mean Corpuscular Hemoglobin Concent 35.2 g/dl (32-36) Platelet Count 209 K/uL (130-400) Mean Platelet Volume 9.0 fL (7.4-10.4) Neutrophils (%) (Auto) 47.1 % Lymphocytes (%) (Auto) 41.7 % Monocytes (%) (Auto) 9.1 % Eosinophils (%) (Auto) 1.2 % Basophils (%) (Auto) 0.4 % Neutrophils # (Auto) 4.37 K/uL (1.4-6.5) Lymphocytes # (Auto) 3.87 K/uL (1.2-3.4) Monocytes # (Auto) 0.85 K/uL (0.11-0.59) Eosinophils # (Auto) 0.11 K/uL (0-0.5) Basophils # (Auto) 0.04 K/uL (0-0.2) RDW Standard Deviation 46.1 fL (36.4-46.3) RDW Coefficient of Variation 13.9 % (11.5-14.5) Immature Granulocyte % (Auto) 0.5 % Immature Granulocyte # (Auto) 0.05 K/uL (0.00-0.02) Anion Gap 4.0 mmol/L (3-11) Estimated GFR () 87.1 Estimated GFR (Non- 75.1 BUN/Creatinine Ratio 8.7 (10-20) Calcium Level 8.4 mg/dl (8.5-10.1) Total Bilirubin 0.3 mg/dl (0.2-1) Aspartate Amino Transf (AST/SGOT) 24 U/L (15-37) Alanine Aminotransferase (ALT/SGPT) 39 U/L (12-78) Alkaline Phosphatase 83 U/L (45-117) Total Protein 7.3 gm/dl (6.4-8.2) Albumin 3.6 gm/dl (3.4-5.0) Globulin 3.7 gm/dl (2.5-4.0) Albumin/Globulin Ratio 1.0 (0.9-2) Thyroid Stimulating Hormone (TSH) 7.190 uIu/ml (0.300-4.500) Salicylates Level < 1.7 mg/dl (2.8-20) Acetaminophen Level < 2 ug/ml (10-30) Ethyl Alcohol mg/dL < 3.0 mg/dl (0-3) Laboratory results as reviewed by me. Medications Administered Medications (Trade) Dose Ordered Sig/Darian Route Start Time Stop Time Status Last Admin Dose Admin Ranitidine HCl (zANTac SYRUP) 150 mg NOW ONCE PO 06/24/17 01:45 06/24/17 01:46 DC 06/24/17 01:43 150 MG Al Hydroxide/Mg Hydroxide (Maalox Susp) 30 ml STK-MED ONCE .ROUTE 06/24/17 01:38 06/24/17 01:39 DC 06/24/17 01:43 30 ML Lidocaine HCl (Viscous Lidocaine 2% Soln) 20 ml STK-MED ONCE .ROUTE 06/24/17 01:38 06/24/17 01:39 DC 06/24/17 01:43 20 ML ECG Indication: toxicologic Rate (beats per minute): 52 Rhythm: sinus bradycardia Findings: no acute ischemic change, no ectopy Change: no significant change (similar morphology to previous EKG's, no STEMI in previous) ED Course 2329: The patient was evaluated in room A6. A complete history and physical exam was performed. 0113: The patient is being evaluated by mental health. 0213: I reevaluated the patient and she has no further problems. 0225: I reevaluated the patient and she has no further chest pain after the GI Cocktail. 0249: I reevaluated the patient and she feels well. Discussed results and discharge instructions: she verbalized understanding and agreement. The patient is ready for discharge. Medical Decision Differential: Mood Disorder, Overdose, Infectious, Electrolyte Abnormality, Cardiac, Hepatic, Endocrine, Toxicologic, Neurologic, amongst other pathologies entertained. 46 yr old female with intellectual disability who arrives for evaluation worsening auditory hallucinations telling her to hurt herself. No act of furtherance and denies any plan to harm self. She has long history of evaluations for this her in department. She is cooperative, smiling and in no distress. She denies plan to harm self. She has had hallucinations for many years. She lives in [facility] without access to weapons. She did note chest pain while her which resolved after GI cocktail and EKG at that time unremarkable, I do not feel this was ACS especially given she is happy and smiling throughout. Labs unremarkable and TSH consistent with previous. I feel she is safe for discharge, as does [address] [place] [address] evaluation. Medication Reconcilliation Current Medication List: was personally reviewed by me Blood Pressure Screening Patient's blood pressure: Normal blood pressure Impression Primary Impression: Auditory hallucinations Additional Impression: Anxiety Scribe Attestation The scribe's documentation has been prepared under my direction and personally reviewed by me in its entirety. I confirm that the note above accurately reflects all work, treatment, procedures, and medical decision making performed by me. Departure Information Dispostion Home / Self-Care Referrals No Doctor, Assigned (PCP) Patient Instructions [facility] Additional Instructions You were evaluated in the emergency department. We are always here to help if you feel symptoms are worsening. Keep all appointments as planned. Call 911 if you feel you are at risk of harming yourself. Problem Qualifiers
[2017-06-24] LABS: BASO % 0.4 %; BASO ABS # 0.04 K/uL (0-0.2); EOS % 1.2 %; EOS ABS # 0.11 K/uL (0-0.5); HEMATOCRIT 36.4 % (37-47); HEMOGLOBIN 12.8 g/dL (12.0-16.0); IG# 0.05 K/uL (0.00-0.02); LYMPH % 41.7 %; LYMPH ABS # 3.87 K/uL (1.2-3.4); MEAN CELL VOLUME 90.8 fL (80-100); MEAN CORPUSCULAR HEMOGLOBIN 31.9 pg (25-34); MEAN CORPUSCULAR HGB CONC 35.2 g/dl (32-36); MONO % 9.1 %; MONO ABS # 0.85 K/uL (0.11-0.59); NEUT % 47.1 %; NEUT ABS # 4.37 K/uL (1.4-6.5); PLATELET COUNT 209 K/uL (130-400); RED CELL DISTRIBUTION WIDTH CV 13.9 % (11.5-14.5); RED CELL DISTRIBUTION WIDTH SD 46.1 fL (36.4-46.3); WHITE BLOOD COUNT 9.29 K/uL (4.8-10.8)
[2017-06-24] MEDS ORDERED: SERT-234 PO (00:03)
[2017-06-24 00:18] LABS: ALBUMIN 3.6 gm/dl (3.4-5.0); ALT/SGPT 39 U/L (12-78); AST/SGOT 24 U/L (15-37); BLOOD UREA NITROGEN 8 mg/dl (7-18); CALCIUM 8.4 mg/dl (8.5-10.1); CARBON DIOXIDE 26 mmol/L (21-32); CREATININE 0.91 mg/dl (0.60-1.20); GLUCOSE 100 mg/dl (70-99); POTASSIUM 3.3 mmol/L (3.5-5.1); SODIUM 140 mmol/L (136-145)
[2017-06-24 00:29] LABS: ALKALINE PHOSPHATASE 83 U/L (45-117); TOTAL PROTEIN 7.3 gm/dl (6.4-8.2)
[2017-06-24] MEDS ORDERED: GI COCKTAIL PO STA (01:36)
[2017-06-24] MEDS ORDERED: LIDOCAINE HCL 2% VISC SOLN 20 ML UDC ONE (01:38)
[2017-06-24] MEDS ORDERED: ALUMINUM/MAGNESIUM SUSP 30 ML UDC ONE (01:38)
[2017-06-24] MEDS ORDERED: RANITIDINE HCL SYRUP 150 MG/10 ML UDC PO ONE (01:45)
[2017-06-24 02:58] VITALS: BP 123/65; PULSE 62; O2SAT 99
== END 2017-06-24 03:01 | disposition other institution (70) ==
LOC: C.EDB 23:14 → C.EDA 06-24 03:01
DX: F33.3 Major depressive disorder, recurrent, severe with psychotic symptoms (principal); F41.8 Other specified anxiety disorders; F79 Unspecified intellectual disabilities; E11.9 Type 2 diabetes mellitus without complications; E03.9 Hypothyroidism, unspecified; Z87.891 Personal history of nicotine dependence; Z82.49 Family history of ischemic heart disease and other diseases of the circulatory system

== ENCOUNTER 2018-12-20 13:57 | Inpatient (IN) ==
--- NOTE | 2018-12-20 14:14 | Emergency Department Note ---
Entered by Hugo Truong acting as a scribe for Scotty Arellano MD History of Present Illness General Chief complaint: Mental Health Evaluation Stated complaint: hearing voices Time Seen by Provider: 12/20/18 14:00 Source: patient History of Present Illness Onset (ago): week(s) (past week) Location: head (psychiatric) Pain Consistency: + other (persistent) Quality: + other (hearing voices) Associated symptoms: + other (denies any pain); no fever/chills and no headaches The patient is a 48 year old female who presents to the Emergency Room with complaints of persistent auditory hallucinations over the past week. The patient states that she has been hearing voices that are telling her to hurt herself. She states that she has not actually attempted to cause self-harm and she does not feel depressed, but she does feel anxious. She is unsure of her underlying psychiatric diagnosis, but she states that she has heard voices in the past and has been taking all of her medications as prescribed. She states that she is sle eping well and denies recent stress. The patient denies fevers, pain, or headaches. She reports that she was evaluated in the ER last week and was discharged home to [facility]. She states that she is not smoking, drinking alcohol, or using recreational drugs. She denies history of diabetes or heart problems. Home Medications Home Medications Medication Instructions Recorded Confirmed Type benztropine 1 mg PO BID 09/12/18 12/20/18 History cholecalciferol (vitamin D3) 2,000 unit PO QAM 09/12/18 12/20/18 History [Vitamin D3] docusate sodium [Stool Softener] 100 mg PO QAM 09/12/18 12/20/18 History fluticasone propionate [Flonase 2 spray INTRANASAL QPM 09/12/18 12/20/18 History Allergy Relief] haloperidol 5 mg PO DAILY 09/12/18 12/20/18 History haloperidol 10 mg PO AMHS 09/12/18 12/20/18 History levothyroxine 100 mcg PO DAILYBB 09/12/18 12/20/18 History naproxen 250 mg PO BID PRN 09/12/18 12/20/18 History sertraline 100 mg PO QAM 09/12/18 12/20/18 History sodium chloride [Saline Nasal] 1 spray INTRANASAL DIRECTED PRN 09/12/18 12/20/18 History topiramate 50 mg PO QAM 09/12/18 12/20/18 History topiramate 100 mg PO HS 09/12/18 12/20/18 History ibuprofen 200 mg PO Q6H PRN 12/20/18 12/20/18 History Allergies Allergy/AdvReac Type Severity Reaction Status Date / Time [place] Allergy Unknown PALM Uncoded 09/12/18 23:02 TREE-CAN'T REMEMBER Past Med/Surg History Medical History Bipolar disorder (Chronic) Depression, major, recurrent, severe with psychosis PCOS (polycystic ovarian syndrome) (Chronic) Intellectual disability Family History Other Family history non-contributory Social History Preferred Language: [place]ar[place] Current Living Situation Comment: [address] Feels Safe at Home: No Smoking Status: Never smoker Review of Systems See HPI for pertinent positives & negatives. and A total of 10 systems reviewed and were otherwise negative Physical Exam Vital Signs Vital Signs - 24 hr 12/20/18 13:59 Temperature 36.9 C Temperature Source Oral Sepsis Recent Fever Within 48 Hours No Sepsis New/Unexplained Change in Mental Status No Sepsis Action Taken by Nursing No Action Required Pulse Rate 59 L Pulse Rhythm Regular Pulse Strength Normal Respiratory Rate 20 Respiratory Effort / Characteristics Non-Labored Spontaneous Respiratory Depth Normal Respiratory Pattern Regular Blood Pressure 119/70 Blood Pressure Mean 86 Blood Pressure Position Sitting Pulse Oximetry 94 Oxygen Delivery Method Room Air General: Non-ill appearing mildly anxious middle age female in no acute distress. HEENT: Normal cephalic atraumatic. Pupils are equal round and reactive to light. Extraocular movements are intact. Oropharynx is pink with moist mucous membranes. No swelling of the mouth lips or tongue. Neck: Supple with a midline trachea. No meningeal signs or stiffness, no JVD or bruits. No Stridor. Chest: Clear to auscultation bilaterally. No wheezes or rhonchi. No increased work of breathing. Heart: regular rate and rhythm. Abdomen: Soft nontender, nondistended without rebound guarding or rigidity. Extremities: No cyanosis clubbing or edema. No calf tenderness or asymmetry Spine/Back. Non tender to palpation. No CVA tenderness Skin: Good turgor without rashes. Neurologic exam: Cranial nerves two through 12 are intact. Motor and sensation are intact and symmetrical throughout. Psychiatric: Cooperative. Claims to be hearing voices. Some suicidal ideations. Course 1402: The patient was evaluated in room A7. A complete history and physical examination were performed. 1630: I checked on the patient. 1710: The patient has been evaluated by the mental health team. They feel she is at baseline and is safe to be discharged back to [facility]. 1733: The psychiatric binder caser feels that the patient is safe to go home. However, the patient would like us to speak with [address] [place] [address]. 1940: The patient was accepted to [address] [place] [address]. Medical Decision Making Differential Diagnosis Differential diagnosis: anxiety, depression, suicidal ideation, electrolyte or metabolic abnormalities, toxicologic, thyroid issues Medical Records Attestation: I reviewed the patient's medical records. Home Medications Current Medication List: was personally reviewed by me Laboratory Data Attestation: I reviewed the patient's lab results. Result diagrams: 12/20/18 14:20 12/20/18 14:20 Lab Results 12/20/18 12/20/18 12/20/18 Range/Units 14:20 14:20 14:20 WBC 7.92 (4.8-10.8) K/uL RBC 4.45 (4.2-5.4) M/uL Hgb 13.6 (12.0-16.0) g/dL Hct 40.1 (37-47) % MCV 90.1 (80-100) fL MCH 30.6 (25-34) pg MCHC 33.9 (32-36) g/dL RDW Std Deviation 44.4 (36.4-46.3) fL RDW Coeff of Alysia 13.5 (11.5-14.5) % Plt Count 180 (130-400) K/uL MPV 9.7 (7.4-10.4) fL Immature Gran % (Auto) 0.3 % Neut % (Auto) 55.7 % Lymph % (Auto) 30.6 % Pershing % (Auto) 12.1 % Eos % (Auto) 0.9 % Baso % (Auto) 0.4 % Immature Gran # (Auto) 0.02 (0.00-0.02) K/uL Neut # (Auto) 4.42 (1.4-6.5) K/uL Lymph # (Auto) 2.42 (1.2-3.4) K/uL Pershing # (Auto) 0.96 H (0.11-0.59) K/uL Eos # (Auto) 0.07 (0-0.5) K/uL Baso # (Auto) 0.03 (0-0.2) K/uL Sodium 144 (136-145) mmol/L Potassium 3.7 (3.5-5.1) mmol/L Chloride 112 H (98-107) mmol/L Carbon Dioxide 24 (21-32) mmol/L Anion Gap 8.0 (3-11) BUN 15 (7-18) mg/dl Creatinine 0.82 (0.6-1.2) mg/dl Est Cr Clr Drug Dosing 88.5 ml/min Est GFR ( Amer) 97.4 Est GFR (Non-Af Amer) 84.0 BUN/Creatinine Ratio 18.6 (10-20) Glucose 100 H (70-99) mg/dl Calcium 8.8 (8.5-10.1) mg/dl Total Bilirubin 0.3 (0.2-1) mg/dl AST 22 (15-37) U/L ALT 35 (12-78) U/L Alkaline Phosphatase 103 (45-117) U/L Total Protein 7.2 (6.4-8.2) gm/dl Albumin 3.7 (3.4-5.0) gm/dl Globulin 3.5 (2.5-4.0) gm/dl Albumin/Globulin Ratio 1.1 (0.9-2) TSH 0.233 L (0.300-4.500) uIu/ml Free T4 0.95 (0.8-1.6) ng/dl Urine Color Urine Appearance (Clear) Urine pH (4.5-7.5) Ur Specific [place] (1.000-1.030) Urine Protein (Negative) Urine Glucose (UA) (Negative) Urine Ketones (Negative) Urine Blood (Negative) Urine Nitrite (Negative) Urine Bilirubin (Negative) Urine Urobilinogen (Negative) Ur Leukocyte Esterase (Negative) Salicylates < 1.7 L (2.8-20) mg/dl Urine Opiates Screen (Neg) Ur Methadone, Qual (Neg) Acetaminophen < 2 L (10-30) ug/ml Urine Barbiturates (Neg) Ur Phencyclidine (PCP) (Neg) U Amphetamin/Meth Scrn (Neg) MDMA (Ecstasy) Screen (Neg) U Benzodiazepines Scrn (Neg) Ur Cocaine Metabolite (Neg) U Marijuana (THC) Screen (Neg) Ethyl Alcohol mg/dL (0-3) mg/dl 12/20/18 12/20/18 12/20/18 Range/Units 14:20 14:39 14:39 WBC (4.8-10.8) K/uL RBC (4.2-5.4) M/uL Hgb (12.0-16.0) g/dL Hct (37-47) % MCV (80-100) fL MCH (25-34) pg MCHC (32-36) g/dL RDW Std Deviation (36.4-46.3) fL RDW Coeff of Alysia (11.5-14.5) % Plt Count (130-400) K/uL MPV (7.4-10.4) fL Immature Gran % (Auto) % Neut % (Auto) % Lymph % (Auto) % [place] % (Auto) % Eos % (Auto) % Baso % (Auto) % Immature Gran # (Auto) (0.00-0.02) K/uL Neut # (Auto) (1.4-6.5) K/uL Lymph # (Auto) (1.2-3.4) K/uL [place] # (Auto) (0.11-0.59) K/uL Eos # (Auto) (0-0.5) K/uL Baso # (Auto) (0-0.2) K/uL Sodium (136-145) mmol/L Potassium (3.5-5.1) mmol/L Chloride (98-107) mmol/L Carbon Dioxide (21-32) mmol/L Anion Gap (3-11) BUN (7-18) mg/dl Creatinine (0.6-1.2) mg/dl Est Cr Clr Drug Dosing ml/min Est GFR ( Amer) Est GFR (Non-Af Amer) BUN/Creatinine Ratio (10-20) Glucose (70-99) mg/dl Calcium (8.5-10.1) mg/dl Total Bilirubin (0.2-1) mg/dl AST (15-37) U/L ALT (12-78) U/L Alkaline Phosphatase (45-117) U/L Total Protein (6.4-8.2) gm/dl Albumin (3.4-5.0) gm/dl Globulin (2.5-4.0) gm/dl Albumin/Globulin Ratio (0.9-2) TSH (0.300-4.500) uIu/ml Free T4 (0.8-1.6) ng/dl Urine Color Yellow Urine Appearance Clear (Clear) Urine pH 7.5 (4.5-7.5) Ur Specific [place] 1.011 (1.000-1.030) Urine Protein Negative (Negative) Urine Glucose (UA) Negative (Negative) Urine Ketones Negative (Negative) Urine Blood Negative (Negative) Urine Nitrite Negative (Negative) Urine Bilirubin Negative (Negative) Urine Urobilinogen Negative (Negative) Ur Leukocyte Esterase Negative (Negative) Salicylates (2.8-20) mg/dl Urine Opiates Screen Neg (Neg) Ur Methadone, Qual Neg (Neg) Acetaminophen (10-30) ug/ml Urine Barbiturates Neg (Neg) Ur Phencyclidine (PCP) Neg (Neg) U Amphetamin/Meth Scrn Neg (Neg) MDMA (Ecstasy) Screen Neg (Neg) U Benzodiazepines Scrn Neg (Neg) Ur Cocaine Metabolite Neg (Neg) U Marijuana (THC) Screen Neg (Neg) Ethyl Alcohol mg/dL < 3.0 (0-3) mg/dl Blood Pressure Blood Pressure Findings: Normal blood pressure Blood Pressure Disposition: did not require urgent referral MDM Narrative This patient comes in as described above. She was placed in room A7. She is here for treatment and evaluation of exacerbation of her mental health disorder. She has been hearing voices. She has had some suicidal thoughts but no attempts. She also felt anxious. She is very cooperative on exam. She does live in a assisted and has chronic mental illness. Multiple blood testing was obtained for medical clearance as well as urinalysis. She was medically cleared. There is nothing by history or lab work to suggest infectious, metabolic or toxicologic process causing her symptoms. Her TSH was mildly low however she to suggest hyperthyroidism causing her symptoms in fact she is on the bradycardic side. she was reassessed and further evaluated by psychiatric binder caser. They have made referral to [facility] is going to admit her for further treatment and evaluation. Impression & Plan Depression, major, recurrent, severe with psychosis, Anxiety, Suicidal ideations, Auditory hallucinations Discharge Plan Visit Data *Final* Discharge Date/Time: 12/20/18 20:14 Chief Complaint: Mental Health Evaluation Stated Complaint: hearing voices ED Provider: Scotty Arellano Discharge Problem: Depression, major, recurrent, severe with psychosis, Anxiety, Suicidal ideation s, Auditory hallucinations Patient Disposition: Admitted As Inpatient Discharge Instructions Interventions: ED Discharge Assessment Last Done: 12/20/18 20:14 The scribe's documentation has been prepared under my direction and personally reviewed by me in its entirety. I confirm that the note above accurately reflects all work, treatment, procedures, and medical decision making performed by me.
[2018-12-20 14:43] LABS: Basophils # (auto) 0.03 K/uL (0-0.2); Basophils % (auto) 0.4 %; Eosinophils # (auto) 0.07 K/uL (0-0.5); Eosinophils % (auto) 0.9 %; Hematocrit (blood only) 40.1 % (37-47); Hemoglobin 13.6 g/dL (12.0-16.0); Immature Granulocytes # (auto) 0.02 K/uL (0.00-0.02); Immature Granulocytes % (auto) 0.3 %; Lymphocytes # (auto) 2.42 K/uL (1.2-3.4); Lymphocytes % (auto) 30.6 %; Mean Corpuscular Hgb Conc 33.9 g/dL (32-36); Mean Corpuscular Volume 90.1 fL (80-100); Mean Platelet Volume 9.7 fL (7.4-10.4); Monocytes # (auto) 0.96 K/uL (0.11-0.59); Monocytes % (auto) 12.1 %; Neutrophils # (auto) 4.42 K/uL (1.4-6.5); Neutrophils % (auto) 55.7 %; Platelet Count 180 K/uL (130-400); RDW Coefficient of Variation 13.5 % (11.5-14.5); RDW Standard Deviation 44.4 fL (36.4-46.3); Red Blood Count 4.45 M/uL (4.2-5.4); White Blood Count 7.92 K/uL (4.8-10.8)
[2018-12-20 14:53] LABS: Appearance Urine Clear (Clear); Bilirubin Urine Negative (Negative); Blood Urine Negative (Negative); Color Urine Yellow; Glucose Urine UA Negative (Negative); Ketones Urine Negative (Negative); Leukocyte Esterase Urine Negative (Negative); Nitrite Urine Negative (Negative); Protein Urine Negative (Negative); Specific Gravity Urine 1.011 (1.000-1.030); Urobilinogen Urine Negative (Negative); pH Urine 7.5 (4.5-7.5)
[2018-12-20 15:02] LABS: Albumin Level 3.7 gm/dl (3.4-5.0); BUN Creatinine Ratio 18.6 (10-20); Calcium 8.8 mg/dl (8.5-10.1); Creatinine Clr Calc Pharmacy 88.5 ml/min; Est GFR (African American) 97.4; Potassium 3.7 mmol/L (3.5-5.1)
[2018-12-20 15:13] LABS: Albumin Globulin Ratio 1.1 (0.9-2); Bilirubin,Total 0.3 mg/dl (0.2-1); Globulin 3.5 gm/dl (2.5-4.0); Total Protein 7.2 gm/dl (6.4-8.2)
[2018-12-20 15:14] LABS: Acetaminophen < 2 ug/ml (10-30); Salicylate < 1.7 mg/dl (2.8-20)
[2018-12-20 15:29] LABS: T4 Free Thyroxine 0.95 ng/dl (0.8-1.6)
[2018-12-20 15:46] LABS: Amphetamines+Metham, Urine Neg (Neg); Barbiturates, Urine Neg (Neg); Benzodiazepine, Urine Neg (Neg); Cocaine, Urine Neg (Neg); MDMA (Ecstacy), Urine Neg (Neg); Methadone, Urine Neg (Neg); Opiate, Urine Neg (Neg); Phencyclidine, Urine Neg (Neg)
[2018-12-20] MEDS ORDERED: ALUMINUM/MAGNESIUM SUSP 30 ML UDC PO PRN (19:28)
[2018-12-20] MEDS ORDERED: MAGNESIUM HYDROXIDE SUSP 30 ML UDC PO PRN (19:28)
[2018-12-20] MEDS ORDERED: SODIUM CHLORIDE 0.65% NA SOLN 45 ML (OCEAN) PRN ×2 (19:28→19:38)
[2018-12-20] MEDS ORDERED: ACETAMINOPHEN 325 MG TAB PO PRN (19:28)
[2018-12-20] MEDS ORDERED: BISMUTH SUBSALICYLATE PER ML OMNICELL CHARGE PO PRN (19:28)
[2018-12-20] MEDS ORDERED: NAPROXEN 250 MG TAB PO PRN (19:38)
[2018-12-20] MEDS ORDERED: IBUPROFEN 200 MG TAB PO PRN (19:38)
[2018-12-20] MEDS: BENZTROPINE MESYLATE 1 MG TAB PO SCH (21:49)
[2018-12-20] MEDS: HALOPERIDOL 10 MG TABLET PO SCH (21:49)
[2018-12-20] MEDS: TOPIRAMATE 100 MG TAB PO SCH (21:49)
[2018-12-20] MEDS: FLUTICASONE PROPIONATE NA SPR 16 GM BTL SCH (21:49)
[2018-12-21] MEDS: DOCUSATE SODIUM 100 MG CAP PO SCH (08:09)
[2018-12-21] MEDS: HALOPERIDOL 10 MG TABLET PO SCH ×2 (08:09→20:38)
[2018-12-21] MEDS: LEVOTHYROXINE SODIUM 100 MCG TABLET PO SCH (08:09)
[2018-12-21] MEDS: BENZTROPINE MESYLATE 1 MG TAB PO SCH ×2 (08:09→20:41)
[2018-12-21] MEDS: SERTRALINE HCL 100 MG TABLET PO SCH (08:10)
[2018-12-21] MEDS: TOPIRAMATE 50 MG TAB PO SCH (08:10)
[2018-12-21] MEDS: CHOLECALCIFEROL 1,000 UNITS TAB PO SCH (08:10)
--- NOTE | 2018-12-21 09:33 | History & Physical ---
Date of Service December 21, 2018 Impression / Recommendations Impression 48-year-old female admitted voluntarily for inpatient psychiatric treatment on 12/20/18 due to auditory hallucinations encouraging her to kill herself by "falling off of a chair." Patient is known to our unit, and to the ED from frequent visits for similar concerns. As patient was unable to be safety planned from the ED, inpatient psychiatric admission was pursued. Patient's symptoms are reportedly present at baseline, and reports suggest an acute stressor prior to admission which may have been contributing to worsening mood and AH. Will continue current medication regimen unchanged, as outpatient supports had no safety or medication concerns in the ED. We will request her outpatient psychiatric records to ensure adjustments are not indicated over the course of her hospitalization. Given that patient is verbalizing difficulty refraining from acting on these commands, she is at high risk of harm to self if discharged prematurely. Will attempt to coordinate aftercare plan with [facility] to ensure proper arrangements are made to promote success at discharge. Dr. Ashley Hallman was directly involved in review and discussion of the patient's case and participated in medical decision making regarding treatment recommendations. (1) Suicidal ideation: 12/21 - Admitted to a locked inpatient behavioral health unit, on q15 minute safety checks - Able to contract for safety on unit; feels she would be able to inform staff if having the urge to act on commands to "fall off my chair and kill myself" - Encourage participation in group and recreational therapies - Gather collateral information from outpatient providers - Suggest family meeting to involve outpatient supports in safety planning - Arrange appropriate aftercare (2) Auditory hallucinations: 12/21 - Auditory hallucinations commanding patient to kill herself by falling off her chair - ED psych case management discussion with outpatient supports suggest these AHs are there at baseline - Gather additional collateral to determine if medication adjustments are indicated - Encourage development of healthy and effective coping strategies to distract from voices (3) Depression, major, recurrent, severe with psychosis: 12/21 - Gather collateral information to clarify diagnosis: several previous dx/past history suggests possibility of schizophrenia, bipolar disorder, or MDD with psychosis - Continue home medications until able to gather collateral information: benztropine 1mg BID, haloperidol 10mg BID, 5mg @1500; and sertraline 100mg daily - Develop appropriate aftercare and safety plan with assistance from [employer] staff and case management (4) Anxiety: 12/21 - Continue home dose of sertraline 100mg qAM - Hydroxyzine 25mg prn for acute anxiety (5) Hypothyroidism: 12/21 - Continue home dosage of levothyroxine 100mcg daily Hypothyroidism type: unspecified Qualified Code(s): E03.9 - Hypothyroidism, unspecified Risk Factors Assessment Male: No : Yes Do You Have Access To A Gun?: No Health Problems: No Mental Health Diagnoses: Yes Substance Use Disorders: No Previous Psychiatric Hospitalization: Yes Hopelessness: No Smoker: No Protective Factors Assessment : No Responsible for Young Children: No Employed: No Psychiatric History Identifying Data MILADY GELLER is a 48-year-old F who currently lives independently through [facility] with 24-hr supervision. Pt has a history of intellectual disability and has been diagnoses with various conditions to explain her persistent auditory hallucinations (schizophrenia, bipolar disorder, MDD with psychotic features, etc). Milady was admitted on 12/20/18 19:29 on a 201 voluntary commitment for auditory hallucinations "telling me to kill myself" and was unable to be safety planned from the ED due to patient reporting she would likely hurt herself if she was discharged back to her home. Information gathered from previous documentation is considered reliable, patient herself is a poor historian. Chief Complaint "I'm not good, my voices tell me to kill myself." History of Present Illness Milady Geller is a 48-year-old female admitted voluntarily for inpatient psychiatric treatment on 12/20/18 due to reports of worsening auditory hallucinations with inability to contract for safety outside of an inpatient setting. Patient does have a confirmed intellectual disability. Patient had reported to the ED via EMS from [facility]. Auditory hallucinations had reportedly worsened and she was feeling unsafe. Patient does have a behavioral plan in the ED, as she historically reports anxiety or hearing voices even at times she may not be. Multiple supports were contacted in attempts to safety plan patient and return her to her home. Supports felt patient was safe to return home, where she has 24-hour support in a home she occupies independently. Despite these recommendations, the patient persisted in her determination that she did not feel safe to return home. She was admitted to our unit for psychiatric treatment until able to contract for safety. On assessment today, the patient verbalizes that she is "not good" due to ongoing auditory hallucinations. She reports hearing a singular male voice telling her to kill herself, at this time by "sliding off a chair." Pt states she is less able to resist the voices recently. She is able to contract for safety on the unit, ensuring that she would communicate with staff prior to acting on commands. Pt reports attending Psych Rehab "last-erday" (yesterday) and becoming "angry and upset" when a peer continued to talk about the individual's stay at the [facility]. Patient reports this causing an "anxiety tack" associated with a nervous feeling, chills, and chest pain. Pt had called [facility] and was encouraged to present to the ED. At this time, patient reports her mood is "low", but states it was "fine last- erday". She denies any changes in her sleep, appetite, or energy level recently. She does report that in addition to auditory hallucinations, she also sees her mother and brother seated in the room with her - stating they do not verbally communicate with her. Pt denies any other acute concerns at this time, simply requesting "will you help me with the voices?" Past Psychiatric History Previous Psych History: Patient has had several diagnoses over the course of her treatment - unclear as to which is most accurate as she is a limited historian. Current Psychiatric Diagnosis: Depression w/ psych features vs. Schizophrenia vs. bipolar disorder Outpatient Services: Medication management - Christine Connor, PhD, [employer]ARD [employer]OR OPERATOR - [facility] Admissions: Most recently admitted to the [facility] in 09/2018; Previous admission at [facility] in 01/2017 and 09/2016 Do You Have Access To A Gun?: No Describe Attempts in the Past: Ideations but no intent Past Head Trauma/Neuro History History of Concussion/Seizure: No Allergies Allergy/AdvReac Type Severity Reaction Status Date / Time [place] Allergy Unknown PALM Uncoded 09/12/18 23:02 TREE-CAN'T REMEMBER Home Medications Home Medications Medication Instructions Recorded Confirmed Type benztropine 1 mg PO BID 09/12/18 12/20/18 History cholecalciferol (vitamin D3) 2,000 unit PO QAM 09/12/18 12/20/18 History [Vitamin D3] docusate sodium [Stool Softener] 100 mg PO QAM 09/12/18 12/20/18 History fluticasone propionate [Flonase 2 spray INTRANASAL QPM 09/12/18 12/20/18 History Allergy Relief] haloperidol 5 mg PO DAILY 09/12/18 12/20/18 History haloperidol 10 mg PO AMHS 09/12/18 12/20/18 History levothyroxine 100 mcg PO DAILYBB 09/12/18 12/20/18 History naproxen 250 mg PO BID PRN 09/12/18 12/20/18 History sertraline 100 mg PO QAM 09/12/18 12/20/18 History sodium chloride [Saline Nasal] 1 spray INTRANASAL DIRECTED PRN 09/12/18 12/20/18 History topiramate 50 mg PO QAM 09/12/18 12/20/18 History topiramate 100 mg PO HS 09/12/18 12/20/18 History ibuprofen 200 mg PO Q6H PRN 12/20/18 12/20/18 History Family History Family History of: None Alcohol History Hx of Alcohol Use Over the Past 12 Months: No AUDIT Total Score: 0 Smoking Use Have You Smoked or Used Tobacco Products in the Last 30 Days: No Smoking Status: Former smoker Substance History Hx of Prescription Med Misuse Over the Past 12 Months: No Hx of Over the Counter Med Misuse Over the Past 12 Months: No Hx of Inhalent Misuse Over the Past 12 Months: No Hx of Organic Substance Use Over the Past 12 Months: No Hx of Illegal Substances/Street Drug Use Over Past 12 Months: No Problems as a Result of Past Substance Use: None Identified Personal History Living Arrangements: [facility] Highest Grade Completed: High School Graduate (Special Education Program) Employment Status: Disabled Marital Status: Number Of Children: none Beliefs That Will Affect Care: None Current Legal Problems: No Hx Legal Problems: No Hx Traumatic Life Events: No Patient History Medical History Bipolar disorder (Chronic) Depression, major, recurrent, severe with psychosis (Acute) PCOS (polycystic ovarian syndrome) (Chronic) Intellectual disability Family History Other Family history non-contributory Social History Preferred Language: Beninese Communication Ability: Effective Surgical Instrument Mechanic Required: No Beliefs That Will Affect Care: None Current Living Situation Comment: [facility] Feels Safe at Home: No Smoking Status: Former smoker Review of Systems Review of Systems: Constitutional: denied Cardiovascular: reports chest pain and tachycardia with anxiety Respiratory: reports cough Gastrointestinal: denied Genitourinary: reports "blood in my urine" - no microscopic/occult blood on UA Neurological: reports dizziness Musculoskeletal: reports cramping in her left foot Psychiatric: denies symptoms other than stated above Total of at least 10 systems reviewed, pertinent positives as above and in HPI. Physical Exam Psychiatric: Orientation: alert, oriented x 3 and cooperative (though limited historian) Apperance: appropriately dressed (casually in t-shirt and scrub pants) and appropriately groomed (having recently showered) Obese-appearing female seated in no acute distress. Pt has short, camacho hair which appears clean as patient has recently showered. Level of hygiene and hydration appear adequate. Eye Contact: good eye contact Motor Behavior: steady gait and station and no abnormal motor movements Speech: normal rate/rhythm/volume of speech (at times there is significant delay prior to responding to questions) Affect: + flat affect; no depressed affect, no anxious affect and + mood not congruent with affect Mood: + depressed mood and + anxious mood "Mood is low" and "anxious and scared" but states she felt "fine last-erday morning" Thought Process: + thought blocking (significant delay prior to responses, unclear if destracted by int. stimuli) and + concrete thought process Thought Content: + preoccupation (with auditory hallucinations) Suicidal Thoughts: + reports suicidal thoughts and + reports suicidal plan (to fall off chair - act on commands of ) Homicidal Thoughts: denies homicidal thoughts Hallucinations: + auditory hallucinations (1 male voice "telling me to kill myself") and + visual hallucinations (sees mother and brother sitting in room during encounter) Cognition: attention grossly intact and language grossly intact Estimated Intelligence: + below average estimated intelligence (confirmed intellectual disability, IQ unknown) Insight: + poor insight (chronically poor) Judgement: + poor judgement (chronically poor, though is refraining from acting on commands) Vital Signs (Past 24 Hours): Last Vital Signs Temp 36.6 C 12/21/18 06:38 Pulse 80 12/21/18 06:39 Resp 18 12/21/18 06:38 BP 103/73 12/21/18 06:39 Pulse Ox 94 12/20/18 20:50 Musculoskeletal: Ankle: + ankle abnormal to inspection; no deformity, no effusion, no skin erythema and no ecchymosis Exam Statement: A physical exam was performed in the ER prior to admission to the unit by Dr. Scotty Arellano MD. I accept that physical as correct/medical clearance for the inpatient physical exam. Results & Data Laboratory Results Laboratory Results - last 24 hr 12/20/18 12/20/18 12/20/18 14:20 14:20 14:20 WBC 7.92 RBC 4.45 Hgb 13.6 Hct 40.1 MCV 90.1 MCH 30.6 MCHC 33.9 RDW Std Deviation 44.4 RDW Coeff of Alysia 13.5 Plt Count 180 MPV 9.7 Immature Gran % (Auto) 0.3 Neut % (Auto) 55.7 Lymph % (Auto) 30.6 [place] % (Auto) 12.1 Eos % (Auto) 0.9 Baso % (Auto) 0.4 Immature Gran # (Auto) 0.02 Neut # (Auto) 4.42 Lymph # (Auto) 2.42 [place] # (Auto) 0.96 H Eos # (Auto) 0.07 Baso # (Auto) 0.03 Sodium 144 Potassium 3.7 Chloride 112 H Carbon Dioxide 24 Anion Gap 8.0 BUN 15 Creatinine 0.82 Est Cr Clr Drug Dosing 88.5 Est GFR ( Amer) 97.4 Est GFR (Non-Af Amer) 84.0 BUN/Creatinine Ratio 18.6 Glucose 100 H Calcium 8.8 Total Bilirubin 0.3 AST 22 ALT 35 Alkaline Phosphatase 103 Total Protein 7.2 Albumin 3.7 Globulin 3.5 Albumin/Globulin Ratio 1.1 TSH 0.233 L Free T4 0.95 Urine Color Urine Appearance Urine pH Ur Specific Wharton Urine Protein Urine Glucose (UA) Urine Ketones Urine Blood Urine Nitrite Urine Bilirubin Urine Urobilinogen Ur Leukocyte Esterase Salicylates < 1.7 L Urine Opiates Screen Ur Methadone, Qual Acetaminophen < 2 L Urine Barbiturates Ur Phencyclidine (PCP) U Amphetamin/Meth Scrn MDMA (Ecstasy) Screen U Benzodiazepines Scrn Ur Cocaine Metabolite U Marijuana (THC) Screen Ethyl Alcohol mg/dL 12/20/18 12/20/18 12/20/18 14:20 14:39 14:39 WBC RBC Hgb Hct MCV MCH MCHC RDW Std Deviation RDW Coeff of Alysia Plt Count MPV Immature Gran % (Auto) Neut % (Auto) Lymph % (Auto) [place] % (Auto) Eos % (Auto) Baso % (Auto) Immature Gran # (Auto) Neut # (Auto) Lymph # (Auto) [place] # (Auto) Eos # (Auto) Baso # (Auto) Sodium Potassium Chloride Carbon Dioxide Anion Gap BUN Creatinine Est Cr Clr Drug Dosing Est GFR ( Amer) Est GFR (Non-Af Amer) BUN/Creatinine Ratio Glucose Calcium Total Bilirubin AST ALT Alkaline Phosphatase Total Protein Albumin Globulin Albumin/Globulin Ratio TSH Free T4 Urine Color Yellow Urine Appearance Clear Urine pH 7.5 Ur Specific Wharton 1.011 Urine Protein Negative Urine Glucose (UA) Negative Urine Ketones Negative Urine Blood Negative Urine Nitrite Negative Urine Bilirubin Negative Urine Urobilinogen Negative Ur Leukocyte Esterase Negative Salicylates Urine Opiates Screen Neg Ur Methadone, Qual Neg Acetaminophen Urine Barbiturates Neg Ur Phencyclidine (PCP) Neg U Amphetamin/Meth Scrn Neg MDMA (Ecstasy) Screen Neg U Benzodiazepines Scrn Neg Ur Cocaine Metabolite Neg U Marijuana (THC) Screen Neg Ethyl Alcohol mg/dL < 3.0 Current Inpatient Medications Current Inpatient Medications: Current Inpatient Medications Acetaminophen (Tylenol) 650 mg PO Q4H PRN PRN Reason: Headache or Minor Fever Stop: 01/19/19 19:27 Al Hydrox/Mg Hydrox/Simethicone (Maalox) 30 ml PO Q4H PRN PRN Reason: GI Upset Stop: 01/19/19 19:27 Benztropine Mesylate (Cogentin) 1 mg PO BID [facility] Stop: 01/19/19 20:59 Last Admin: 12/21/18 08:09 Dose: 1 mg Documented by: Bismuth Subsalicylate (Kaopectate) 15 ml PO PRN PRN PRN Reason: Loose Stool Stop: 01/19/19 19:27 Docusate Sodium (Colace) 100 mg PO QAM [facility] Stop: 01/20/19 08:59 Last Admin: 12/21/18 08:09 Dose: 100 mg Documented by: Fluticasone Propionate (Flonase) 2 sprays NA QPM TOSIN Stop: 01/19/19 20:59 Last Admin: 12/20/18 21:49 Dose: 2 sprays Documented by: Haloperidol (Haldol) 5 mg PO DAILY@1500 TOSIN Stop: 01/20/19 14:59 Haloperidol (Haldol) 10 mg PO AMHS [facility] Stop: 01/19/19 20:59 Last Admin: 12/21/18 08:09 Dose: 10 mg Documented by: Hydroxyzine HCl (Vistaril) 25 mg PO Q4H PRN PRN Reason: Anxiety Stop: 01/19/19 19:27 Hydroxyzine HCl (Vistaril) 50 mg PO HSZ PRN PRN Reason: Insomnia Stop: 01/19/19 19:27 Ibuprofen (Advil) 200 mg PO Q6H PRN PRN Reason: Pain Stop: 01/19/19 19:37 Levothyroxine Sodium (Synthroid) 100 mcg PO DAILYBB [facility] Stop: 01/20/19 06:29 Last Admin: 12/21/18 08:09 Dose: 100 mcg Documented by: Magnesium Hydroxide (Milk Of Magnesia) 30 ml PO DAILY PRN PRN Reason: Heartburn Stop: 01/19/19 19:27 Sertraline HCl (Zoloft) 100 mg PO QAM [facility] Stop: 01/20/19 08:59 Last Admin: 12/21/18 08:10 Dose: 100 mg Documented by: Sodium Chloride ([place] Nasal) 1 - 2 sprays NA PRN PRN PRN Reason: Nasal Dryness/Congestion Stop: 01/19/19 19:27 Sodium Chloride ([place] Nasal) 1 sprays NA UD PRN PRN Reason: DRYNESS/NOSE BLEEDS Stop: 01/19/19 19:37 Topiramate (Topamax) 50 mg PO QAM [facility] Stop: 01/20/19 08:59 Last Admin: 12/21/18 08:10 Dose: 50 mg Documented by: Topiramate (Topamax) 100 mg PO HS [facility] Stop: 01/19/19 20:59 Last Admin: 12/20/18 21:49 Dose: 100 mg Documented by: Vitamin D (Vitamin D3) 2,000 units PO QAM [facility] Stop: 01/20/19 08:59 Last Admin: 12/21/18 08:10 Dose: 2,000 units Documented by: CPT Code CPT Code Initial Hospital Care: 21171
[2018-12-21] MEDS: HALOPERIDOL 5 MG TAB PO SCH (14:53)
[2018-12-21] MEDS: FLUTICASONE PROPIONATE NA SPR 16 GM BTL SCH (20:38)
[2018-12-21] MEDS: TOPIRAMATE 100 MG TAB PO SCH (20:39)
[2018-12-22] MEDS: BENZTROPINE MESYLATE 1 MG TAB PO SCH ×2 (09:14→22:04)
[2018-12-22] MEDS: DOCUSATE SODIUM 100 MG CAP PO SCH (09:14)
[2018-12-22] MEDS: LEVOTHYROXINE SODIUM 100 MCG TABLET PO SCH (09:15)
[2018-12-22] MEDS: CHOLECALCIFEROL 1,000 UNITS TAB PO SCH (09:15)
[2018-12-22] MEDS: TOPIRAMATE 50 MG TAB PO SCH (09:15)
[2018-12-22] MEDS: HALOPERIDOL 10 MG TABLET PO SCH ×2 (09:16→22:04)
[2018-12-22] MEDS: SERTRALINE HCL 100 MG TABLET PO SCH (09:17)
[2018-12-22] MEDS: HALOPERIDOL 5 MG TAB PO SCH (15:00)
--- NOTE | 2018-12-22 18:43 | Psychiatric Progress Note ---
Date of Service December 22, 2018 Impression / Recommendations Impression 48-year-old female admitted voluntarily for inpatient psychiatric treatment on 12/20/18 due to auditory hallucinations encouraging her to kill herself by "falling off of a chair." Patient is known to our unit, and to the ED from frequent visits for similar concerns. As patient was unable to be safety planned from the ED, inpatient psychiatric admission was pursued. Patient's symptoms are reportedly present at baseline, and reports suggest an acute stressor prior to admission which may have been contributing to worsening mood and AH. Will continue current medication regimen unchanged, as outpatient supports had no safety or medication concerns in the ED. We will request her outpatient psychiatric records to ensure adjustments are not indicated over the course of her hospitalization. Given that patient is verbalizing difficulty refraining from acting on these commands, she is at high risk of harm to self if discharged prematurely. Will attempt to coordinate aftercare plan with [facility] to ensure proper arrangements are made to promote success at discharge. Attempting addres stressor sand rationale for worsening of her AH (1) Suicidal ideation: 12/21 - Admitted to a locked inpatient behavioral health unit, on q15 minute safety checks - Able to contract for safety on unit; feels she would be able to inform staff if having the urge to act on commands to "fall off my chair and kill myself" - Encourage participation in group and recreational therapies - Gather collateral information from outpatient providers - Suggest family meeting to involve outpatient supports in safety planning - Arrange appropriate aftercare (2) Auditory hallucinations: 12/21 - Auditory hallucinations commanding patient to kill herself by falling off her chair - ED psych case management discussion with outpatient supports suggest these AHs are there at baseline - Gather additional collateral to determine if medication adjustments are indicated - Encourage development of healthy and effective coping strategies to distract from voices (3) Depression, major, recurrent, severe with psychosis: 12/21 - Gather collateral information to clarify diagnosis: several previous dx/past history suggests possibility of schizophrenia, bipolar disorder, or MDD with psychosis - Continue home medications until able to gather collateral information: benztropine 1mg BID, haloperidol 10mg BID, 5mg @1500; and sertraline 100mg daily - Develop appropriate aftercare and safety plan with assistance from [facility] staff and case management 12/22 - maintained treatment plan, with aim for meeting with case managent on 12/23 (4) Anxiety: 7/3 - Continue home dose of sertraline 100mg qAM - Hydroxyzine 25mg prn for acute anxiety (5) Hypothyroidism: /3 - Continue home dosage of levothyroxine 100mcg daily Risk Factors Assessment Male: No : Yes Do You Have Access To A Gun?: No Health Problems: No Mental Health Diagnoses: Yes Substance Use Disorders: No Previous Psychiatric Hospitalization: Yes Hopelessness: No Smoker: No Protective Factors Assessment : No Responsible for Young Children: No Employed: No Interval History Chief Complaint "having AH" . Review of Systems Sleep Information Total Hours of Sleep: 8 Sleep Comments: pt given vistaril per rn. pt on q-15 minute checks Meal Information Percent Meal Consumed - Breakfast: 100 Percent Meal Consumed - Lunch: 100 Percent Meal Consumed - Dinner: 100 Nutrition Comment: per meal record Subjective Subjective Patient was seen & assessed and interval progress reviewed with nursing. Pt continues to report AH that are telling her to hurt herself. she reports these are chronic and that Meds do not take the Ah away. She reports anxious and appears flat affect which resolves and converts to euthymic bright affect as soon as writer editor indicates assessment can end. She shared how one of her supports is leaving and how she miss her. denied s/e to her meds. She reports been able to not act on the AH and feels safe here in the hospital and likes her placement . sleep and eating intact Physical Exam Psychiatric Orientation: alert, oriented x 3 and cooperative (though limited historian) Apperance: appropriately dressed (casually in t-shirt and scrub pants) and appropriately groomed (having recently showered) Eye Contact: good eye contact Motor Behavior: steady gait and station and no abnormal motor movements soft speech that is hard to understand Affect: + flat affect (that brightened up to more full affect as assessment ended ) Mood: + anxious mood Thought Process: + concrete thought process Thought Content: + preoccupation (with auditory hallucinations) Suicidal Thoughts: + reports suicidal thoughts and + reports suicidal plan (to fall off chair - act on commands of AH) Homicidal Thoughts: denies homicidal thoughts Hallucinations: + auditory hallucinations (1 male voice "telling me to kill myself") Cognition: attention grossly intact and language grossly intact Estimated Intelligence: + below average estimated intelligence (confirmed intellectual disability, IQ unknown) Insight: + poor insight (chronically poor) Judgement: + poor judgement (chronically poor, though is refraining from acting on commands) Vital Signs (Past 24 Hours) Last Vital Signs Temp 36.6 C 12/22/18 06:39 Pulse 84 12/22/18 06:40 Resp 18 12/22/18 06:39 BP 112/77 12/22/18 06:40 Pulse Ox 94 12/20/18 20:50 Results & Data Current Inpatient Medications Current Inpatient Medications: Current Inpatient Medications Acetaminophen (Tylenol) 650 mg PO Q4H PRN PRN Reason: Headache or Minor Fever Stop: 01/19/19 19:27 Al Hydrox/Mg Hydrox/Simethicone (Maalox) 30 ml PO Q4H PRN PRN Reason: GI Upset Stop: 01/19/19 19:27 Benztropine Mesylate (Cogentin) 1 mg PO BID [facility] Stop: 01/19/19 20:59 Last Admin: 12/22/18 09:14 Dose: 1 mg Documented by: Bismuth Subsalicylate (Kaopectate) 15 ml PO PRN PRN PRN Reason: Loose Stool Stop: 01/19/19 19:27 Docusate Sodium (Colace) 100 mg PO QAM [facility] Stop: 01/20/19 08:59 Last Admin: 12/22/18 09:14 Dose: 100 mg Documented by: Fluticasone Propionate (Flonase) 2 sprays NA QPM [facility] Stop: 01/19/19 20:59 Last Admin: 12/21/18 20:38 Dose: 2 sprays Documented by: Haloperidol (Haldol) 5 mg PO DAILY@1500 [facility] Stop: 01/20/19 14:59 Last Admin: 12/22/18 15:00 Dose: 5 mg Documented by: Haloperidol (Haldol) 10 mg PO AMHS [facility] Stop: 01/19/19 20:59 Last Admin: 12/22/18 09:16 Dose: 10 mg Documented by: Hydroxyzine HCl (Vistaril) 25 mg PO Q4H PRN PRN Reason: Anxiety Stop: 01/19/19 19:27 Hydroxyzine HCl (Vistaril) 50 mg PO HSZ PRN PRN Reason: Insomnia Stop: 01/19/19 19:27 Last Admin: 12/21/18 20:39 Dose: 50 mg Documented by: Ibuprofen (Advil) 200 mg PO Q6H PRN PRN Reason: Pain Stop: 01/19/19 19:37 Levothyroxine Sodium (Synthroid) 100 mcg PO DAILYBB [facility] Stop: 01/20/19 06:29 Last Admin: 12/22/18 09:15 Dose: 100 mcg Documented by: Magnesium Hydroxide (Milk Of Magnesia) 30 ml PO DAILY PRN PRN Reason: Heartburn Stop: 01/19/19 19:27 Sertraline HCl (Zoloft) [facility] Stop: 01/20/19 08:59 Last Admin: 12/22/18 09:17 Dose: 100 mg Documented by: Sodium Chloride (Howard Nasal) 1 - 2 sprays NA PRN PRN PRN Reason: Nasal Dryness/Congestion Stop: 01/19/19 19:27 Sodium Chloride (Howard Nasal) 1 sprays NA UD PRN PRN Reason: DRYNESS/NOSE BLEEDS Stop: 01/19/19 19:37 Topiramate (Topamax) 50 mg [facility] Stop: 01/20/19 08:59 Last Admin: 12/22/18 09:15 Dose: 50 mg Documented by: Topiramate (Topamax) 100 mg PO [facility] Stop: 01/19/19 20:59 Last Admin: 12/21/18 20:39 Dose: 100 mg Documented by: Vitamin D (Vitamin D3) 2,000 units PO [facility] [place] Stop: 01/20/19 08:59 Last Admin: 12/22/18 09:15 Dose: 2,000 units Documented by: Mental Health & Subst Abuse Tx Psychiatrist Name of Psychiatrist: Christine Connor PhD, CREDIT OR LOANS OFFICER, [facility] Psychiatrist's Date of Appointment with Psychiatrist: 01/24/19 Time of Appointment with Psychiatrist: 1pm Therapist Name of Therapist: [facility] Therapist's Date of Therapist Appointment: 12/28/18 Time of Therapist Appointment: 11am [facility] Name of Supervisor [facility] Treatment Plant: [facility] Phone Number for Supervisor [facility]: [phone] Date of Appointment with Supervisor [facility] [employer]: 01/02/19 Time of Appointment with Supervisor [employer]: 3:30 Post Discharge Appointments Primary Care Physician Name Of Family Doctor: Dr. Abbott Primary Care Partial or Psych Rehab Name of Partial or Psych Rehab: [facility] [facility] CPT Code CPT Code 62212 (1) Hypothyroidism Hypothyroidism type: unspecified Qualified Code(s): E03.9 - Hypothyroidism, unspecified
[2018-12-22] MEDS: TOPIRAMATE 100 MG TAB PO SCH (22:03)
[2018-12-22] MEDS: FLUTICASONE PROPIONATE NA SPR 16 GM BTL SCH (22:04)
[2018-12-23] MEDS: DOCUSATE SODIUM 100 MG CAP PO SCH (08:09)
[2018-12-23] MEDS: LEVOTHYROXINE SODIUM 100 MCG TABLET PO SCH (08:09)
[2018-12-23] MEDS: CHOLECALCIFEROL 1,000 UNITS TAB PO SCH (08:09)
[2018-12-23] MEDS: TOPIRAMATE 50 MG TAB PO SCH (08:09)
[2018-12-23] MEDS: HALOPERIDOL 10 MG TABLET PO SCH (08:09)
[2018-12-23] MEDS: BENZTROPINE MESYLATE 1 MG TAB PO SCH (08:09)
[2018-12-23] MEDS: SERTRALINE HCL 100 MG TABLET PO SCH (08:10)
--- NOTE | 2018-12-23 11:13 | Discharge Summary ---
Date of Service December 23, 2018 History of Present Illness Milady Geller is a 48-year-old female admitted voluntarily for inpatient psychiatric treatment on 12/20/18 due to reports of worsening auditory hallucinations with inability to contract for safety outside of an inpatient setting. Patient does have a confirmed intellectual disability. Patient had reported to the ED via EMS from [facility]. Auditory hallucinations had reportedly worsened and she was feeling unsafe. Patient does have a behavioral plan in the ED, as she historically reports anxiety or hearing voices even at times she may not be. Multiple supports were contacted in attempts to safety plan patient and return her to her home. Supports felt patient was safe to return home, where she has 24-hour support in a home she occupies independently. Despite these recommendations, the patient persisted in her determination that she did not feel safe to return home. She was admitted to our unit for psychiatric treatment until able to contract for safety. On assessment today, the patient verbalizes that she is "not good" due to on going auditory hallucinations. She reports hearing a singular male voice telling her to kill herself, at this time by "sliding off a chair." Pt states she is less able to resist the voices recently. She is able to contract for safety on the unit, ensuring that she would communicate with staff prior to acting on commands. Pt reports attending Psych Rehab "last-erday" (yesterday) and becoming "angry and upset" when a peer continued to talk about the individual's stay at the [facility]. Patient reports this causing an "anxiety tack" associated with a nervous feeling, chills, and chest pain. Pt had called [facility] and was encouraged to present to the ED. At this time, patient reports her mood is "low", but states it was "fine last- erday". She denies any changes in her sleep, appetite, or energy level recently. She does report that in addition to auditory hallucinations, she also sees her mother and brother seated in the room with her - stating they do not verbally communicate with her. Pt denies any other acute concerns at this time, simply requesting "will you help me with the voices?" Physical Exam Psychiatric Orientation: oriented to person, oriented to place and cooperative Apperance: appropriately dressed and appropriately groomed Eye Contact: + fair eye contact Motor Behavior: no abnormal motor movements Often hesitates before speaking. Little offered spontaneously. Affect: + constricted affect "Good." Thought Process: + concrete thought process Thought Content: reality based without delusions Suicidal Thoughts: denies suicidal thoughts Homicidal Thoughts: denies homicidal thoughts Hallucinations: + auditory hallucinations "I don't listen to them." Cognition: language grossly intact Unable to recall the circumstances of her admission. Estimated Intelligence: + below average estimated intelligence Reports that she cannot read, nor can she "do math." When asked how much change she would get if she bought some candy for $0.75 and handed the toolroom clerk $1.00 she said, "See? I don't know. I can't do math." Insight: + poor insight Judgement: + poor judgement Vital Signs (Past 24 Hours) Last Vital Signs Temp 36.9 C 12/23/18 06:41 Pulse 90 12/23/18 06:44 Resp 16 12/23/18 06:41 BP 114/76 12/23/18 06:44 Pulse Ox 94 12/20/18 20:50 Principal Diagnosis Schizophrenia Psychiatric Data During the course of hospitalization the patient was offered various modalities of psychiatric treatment and education. Due to the patient's intellectual disabilities she had difficulty participating fully in individual and group therapies, but she did quite well and activity therapies and expressed pleasure and participating in activities with her peers. As noted above, the patient has a history of using the emergency room as a coping strategy when she is feeling anxious about psychiatric symptoms, such as auditory hallucinations. Her most recent admission was precipitated by her report that she was hearing a voice telling her to fall off a chair. Fairly quickly following admission the patient began to tell us that she did not have an intent to fall from the chair. Most of the interventions during the stay had to do with teaching the patient to learn to distract herself by activities when feeling distressed by perceptual disturbances or other factors. The patient also was able to acknowledge that she sometime feels lonely living alone, as she does, and a "group" home, and she acknowledges that she enjoys coming into the hospital. On the day of discharge, the patient reported that although she continues to periodically experience auditory hallucinations, she also tells us that the voices are not bothering her and that she continues to have no intent to cause physical harm to herself or others. She also expressed an eagerness to return back to the community and to continue her treatment on an outpatient basis. Day of Discharge Assessment On the day of discharge the patient was found participating in a group activity, and laughing with her peers as they attempted to do "backward bowling," which involved using electronic device that simulates the bowling alley and that is executed through the use of a hand held controller. The patient was encouraging her peers to try turning their back on the computer monitor and to try bowling without looking, whereupon she got to "strikes" in a row. On mental status examination the patient is found to be an obese woman who appears somewhat younger than her stated age. She is appropriately dressed and groomed, but is oriented only to person and "the hospital." She is uncertain as to the year or the month. She also tells us that she cannot recall the reasons for psychiatric hospitalization, but when reminded that she had come to the emergency room and complained of hearing voices telling her to fall off a chair that to this, in fact, was the case. The patient's speech is rarely spontaneous, and she often answers questions with brief responses. She also tends to hesitate briefly before speaking, and often asks for questions to be repeated or clarified. The patient's thought processes are concrete. For example, when I asked her where she lives, she said "in a house," and when I ask her again, this time by saying "Thanks. What town do you lived in?" she replied "it is a house." No delusional material was identified and the patient's thought content. She does acknowledge that she continues to periodically experience auditory mckeon llucinations, and notes that perceptual disturbances have been persistent throughout most of her life. However, she adds that she does not have any intent to act on any of the voices and describes running commentary content. The patient reports that she has no thoughts of suicide, no thoughts of intentionally harming herself physically, and has no thoughts of causing harm to the person or property of others. Formal testing of the patient's memory was somewhat difficult, but she, as noted above, does not seem to recall the circumstances that led to her admission, and she does not recall when she was admitted. The patient is intellectually disabled and confides that she is unable to read, and unable to "do math." As noted above, the patient could not tell me how much change she should get if she bought something that cost $0.75 and handed the toolroom clerk a $1 bill. The patient's judgment is poor, but this seems not to be significantly different from her baseline. Her insight is limited, but the patient does recognize her need for treatment and was able to discuss the fact that her care providers have been recommending that she address her psychiatric concerns with them, rather than coming to the emergency room as a coping strategy for her anxiety. Transition of Care Transition Of Care Record: was reviewed with the patient Advance Directives Advance Directives Information Provided: Yes Advance Directives: No Mental Health Advance Directive: No Advance Directives on File: No Living Will: No Power of [employer] Supervisor: No Advance Directives Reason:: Declines as Mental Health Visit. Risk Factors Assessment Male: No : Yes Do You Have Access To A Gun?: No Health Problems: No Mental Health Diagnoses: Yes Substance Use Disorders: No Previous Psychiatric Hospitalization: Yes Hopelessness: No Smoker: No Protective Factors Assessment Moravian Beliefs: Yes (Patient tells me that she has hinduism beliefs, but cannot tell me what they are.) : No Responsible for Young Children: No Employed: No Tobacco Cessation at Discharge Tobacco Cessation Medication Prescribed at Discharge: Not Applicable/Non-Smoker Antipsychotic Medications The patient has a history of schizophrenia and presents with persistent auditory hallucinations that she acknowledges tend to respond, at least to some degree, 2 antipsychotic medications. Total Time Total Time Spent: Greater Than 30 Minutes Total Time Includes: Examination of the patient, Discharge Planning, Medication Reconciliation and Communication with other providers Discharge Data Lab Results 12/20/18 12/20/18 12/20/18 14:20 14:20 14:20 WBC 7.92 RBC 4.45 Hgb 13.6 Hct 40.1 MCV 90.1 MCH 30.6 MCHC 33.9 RDW Std Deviation 44.4 RDW Coeff of Alysia 13.5 Plt Count 180 MPV 9.7 Immature Gran % (Auto) 0.3 Neut % (Auto) 55.7 Lymph % (Auto) 30.6 Dupage % (Auto) 12.1 Eos % (Auto) 0.9 Baso % (Auto) 0.4 Immature Gran # (Auto) 0.02 Neut # (Auto) 4.42 Lymph # (Auto) 2.42 Dup[place] # (Auto) 0.96 H Eos # (Auto) 0.07 Baso # (Auto) 0.03 Sodium 144 Potassium 3.7 Chloride 112 H Carbon Dioxide 24 Anion Gap 8.0 BUN 15 Creatinine 0.82 Est Cr Clr Drug Dosing 88.5 Est GFR ( Amer) 97.4 Est GFR (Non-Af Amer) 84.0 BUN/Creatinine Ratio 18.6 Glucose 100 H Calcium 8.8 Total Bilirubin 0.3 AST 22 ALT 35 Alkaline Phosphatase 103 Total Protein 7.2 Albumin 3.7 Globulin 3.5 Albumin/Globulin Ratio 1.1 TSH 0.233 L Free T4 0.95 Urine Color Urine Appearance Urine pH Ur Specific [place] Urine Protein Urine Glucose (UA) Urine Ketones Urine Blood Urine Nitrite Urine Bilirubin Urine Urobilinogen Ur Leukocyte Esterase Salicylates < 1.7 L Urine Opiates Screen Ur Methadone, Qual Acetaminophen < 2 L Urine Barbiturates Ur Phencyclidine (PCP) U Amphetamin/Meth Scrn MDMA (Ecstasy) Screen U Benzodiazepines Scrn Ur Cocaine Metabolite U Marijuana (THC) Screen Ethyl Alcohol mg/dL 12/20/18 12/20/18 12/20/18 14:20 14:39 14:39 WBC RBC Hgb Hct MCV MCH MCHC RDW Std Deviation RDW Coeff of Alysia Plt Count MPV Immature Gran % (Auto) Neut % (Auto) Lymph % (Auto) [place] % (Auto) Eos % (Auto) Baso % (Auto) Immature Gran # (Auto) Neut # (Auto) Lymph # (Auto) [place] # (Auto) Eos # (Auto) Baso # (Auto) Sodium Potassium Chloride Carbon Dioxide Anion Gap BUN Creatinine Est Cr Clr Drug Dosing Est GFR ( Amer) Est GFR (Non-Af Amer) BUN/Creatinine Ratio Glucose Calcium Total Bilirubin AST ALT Alkaline Phosphatase Total Protein Albumin Globulin Albumin/Globulin Ratio TSH Free T4 Urine Color Yellow Urine Appearance Clear Urine pH 7.5 Ur Specific [place] 1.011 Urine Protein Negative Urine Glucose (UA) Negative Urine Ketones Negative Urine Blood Negative Urine Nitrite Negative Urine Bilirubin Negative Urine Urobilinogen Negative Ur Leukocyte Esterase Negative Salicylates Urine Opiates Screen Neg Ur Methadone, Qual Neg Acetaminophen Urine Barbiturates Neg Ur Phencyclidine (PCP) Neg U Amphetamin/Meth Scrn Neg MDMA (Ecstasy) Screen Neg U Benzodiazepines Scrn Neg Ur Cocaine Metabolite Neg U Marijuana (THC) Screen Neg Ethyl Alcohol mg/dL < 3.0 Hospital Course (1) Suicidal ideation: 12/21 - Admitted to a locked inpatient behavioral health unit, on q15 minute safety checks - Able to contract for safety on unit; feels she would be able to inform staff if having the urge to act on commands to "fall off my chair and kill myself" - Encourage participation in group and recreational therapies - Gather collateral information from outpatient providers - Suggest family meeting to involve outpatient supports in safety planning - Arrange appropriate aftercare 12/23 -Patient reports that she is having no thoughts of suicide. Although she continues to experience auditory hallucinations, she notes that she is able to ignore these and realizes that there is no reason base her behavior on the content of the voices. (2) Auditory hallucinations: 12/21 - Auditory hallucinations commanding patient to kill herself by falling off her chair - ED psych case management discussion with outpatient supports suggest these AHs are there at baseline - Gather additional collateral to determine if medication adjustments are indicated - Encourage development of healthy and effective coping strategies to distract from voices 12/23 -The patient tells me that she continues to hear auditory hallucinations, but confirms that they are "not as bad" and that she feels able to ignore them. She also tells me that although she had been hearing voices that told her to "fall off a chair," she denies that she anticipated that this would result in and, in any event, is no longer hearing voices to tell her to do that or to otherwise engage in self-injurious behaviors. (3) Depression, major, recurrent, severe with psychosis: 12/21 - Gather collateral information to clarify diagnosis: several previous dx/past history suggests possibility of schizophrenia, bipolar disorder, or MDD with psychosis - Continue home medications until able to gather collateral information: benztropine 1mg BID, haloperidol 10mg BID, 5mg @1500; and sertraline 100mg daily - Develop appropriate aftercare and safety plan with assistance from [employer] staff and case management 12/22 - maintained treatment plan, with aim for meeting with case managent on 12/23 12/23 -although the patient may periodically experience alterations in her mood, I believe that her psychiatric symptoms, including her presenting symptoms, are best explained by her primary diagnosis of schizophrenia. She does experience anxious distress associated with first rank symptoms of schizophrenia, and for this reason I would endorse the continuation of sertraline and hydroxyzine. (4) Anxiety: 12/21 - Continue home dose of sertraline 100mg qAM - Hydroxyzine 25mg prn for acute anxiety 12/23 -The patient will be discharged on sertraline 100 mg a day and hydroxyzine 25 mg as needed for anxiety. (5) Hypothyroidism: 12/21 - Continue home dosage of levothyroxine 100mcg daily 12/23 -The patient will be discharged on levothyroxine 100 mcg daily. Mental Health & Subst Abuse Tx Psychiatrist Name of Psychiatrist: Christine Connor PhD, [employer], [facility] Psychiatrist's Date of Appointment with Psychiatrist: 01/24/19 Time of Appointment with Psychiatrist: 1pm Psychiatric Appointment Comment: [address], [address], [place] [address] Psychiatrist Release of Information: Obtained, Reviewed and Signed Therapist Name of Therapist: Geeta [facility] Therapist's Date of Therapist Appointment: 12/28/18 Time of Therapist Appointment: 11am Therapy Appointment Comment: [address], [address], [place] [address] Therapist Release of Information: Obtained, Reviewed and Signed Event Set Up Specialist Name of Event Set Up Specialist: Heavenly Arias [facility] Phone Number for Event Set Up Specialist: [phone] Date of Appointment with Event Set Up Specialist: 01/02/19 Time of Appointment with Event Set Up Specialist: 3:30 Case Management Appointment Comment: [address], [address], [place] [address] Event Set Up Specialist Release of Information: Obtained, Reviewed and Signed Post Discharge Appointments Primary Care Physician Name Of Family Doctor: Adina Abbott Primary Care Time of Appointment with PCP: Follow up as needed. Provider Appointment Comment: [address], [place] [address] Primary Care Release of Information: Obtained, Reviewed and Signed Partial or Psych Rehab Name of Partial or Psych Rehab: [facility] Phone Number of Partial or Psych Rehab: [phone] Partial or Psych Rehab Appointment Comment: [address], [place] [address] Release of Information for Partial or Psych Rehab: Obtained, Reviewed and Signed Smoking Cessation Counseling Tobacco Cessation Medication Prescribed at Discharge: Not Applicable/Non-Smoker Other #1: Name of Aftercare Appointment: Boo Sood Phone Number of Aftercare Appointment: [phone] Aftercare Appointment Comment: [address], [place] [address] Release of Information Aftercare Appointment: Obtained, Reviewed and Signed Contact Information Discharge Discharge Address: [address] [place] [id number] Discharge Plan Discharge Items Patient Disposition: Personal Jail Reason For Visit: SCHIZOPHRENIA Discharge Diagnosis: Schizophrenia Discharge Goals: Improve disease control, Improve function, Increase independence and Learn about illness Activity: Resume your previous activity Non-emergency contact: Primary Care Provider, Psychiatrist, Therapist and Lease Examiner Call non-emergency contact if: you have any medication questions and your symptoms worsen Follow-up/Referrals: Sulaiman Abbott, [Primary Care Provider] - Diet: Regular Addtl Provider Instructions: If possible, discuss your concerns with your staff and your pillowcase turner before coming to the emergency room Prescriptions: Continued haloperidol 5 mg Tablet 5 mg PO DAILY RF: 0 sertraline 100 mg Tablet 100 mg PO QAM RF: 0 naproxen 250 mg Tablet 250 mg PO BID PRN (Reason: Pain) RF: 0 levothyroxine 100 mcg Tablet 100 mcg PO DAILYBB RF: 0 haloperidol 10 mg Tablet 10 mg PO AMHS RF: 0 benztropine 1 mg Tablet 1 mg PO BID RF: 0 docusate sodium [Stool Softener] 100 mg Capsule 100 mg PO QAM RF: 0 topiramate 100 mg Tablet 100 mg PO HS RF: 0 fluticasone propionate [Flonase Allergy Relief] 50 mcg/actuation [place],Suspension 2 spray INTRANASAL QPM RF: 0 sodium chloride [Saline Nasal] 0.65 % Aerosol,[place] 1 spray INTRANASAL DIRECTED PRN (Reason: DRYNESS/NOSE BLEEDS) RF: 0 topiramate 50 mg Tablet 50 mg PO QAM RF: 0 cholecalciferol (vitamin D3) [Vitamin D3] 2,000 unit Capsule 2,000 unit PO QAM RF: 0 ibuprofen 200 mg Tablet 200 mg PO Q6H PRN (Reason: Pain) RF: 0 Stand-Alone Forms: [facility] Discharge Orders: Discharge Order (Routine); Ordered 12/23/18 Ordered By: Paxton Ortiz Admission Data Admit Date/Time: 12/20/18 19:29 Attending Provider: Ashley Hallman Admit Provider: Maurice Zamora I Primary Care Provider: Sulaiman Abbott Service: Psychiatry Other Interventions: PSY Interdisciplinary Discharge Planning Last Done: 12/23/18 10:30 Pending Studies at Discharge: No
== END 2018-12-23 13:30 | disposition home or self-care (01) | DRG 885 ==
LOC: ED 13:57 → 3S 19:29

== ENCOUNTER 2019-11-29 19:27 | Inpatient (IN) ==
--- NOTE | 2019-11-29 20:04 | Emergency Department Note ---
Impression & Plan Depression with suicidal ideation ED Provider Note NAME: TAWANA VACA AGE: 49 SEX: F : 1970 ARRIVES VIA: Ambulance INFORMANT: [Patient][, ] ED PROVIDER(S): [Jose Carlos Sharma MD] Chief Complaint: SI with plan HPI: Patient states that today she had suicidal ideation with plan to jump out of a window. The patient denies any HI. The patient does state that she is seeing some family numbers who are not currently there. Patient may occasionally hear voices. The patient denies alcohol or tobacco abuse. Patient states she is compliant with her medications. Patient states that her appetite is okay sleep could be better. Patient denies any provoking symptoms. Patient states that her symptoms have gotten worse and are constant. ROS: See HPI for pertinent positives and negatives. A total of 10 systems were reviewed and otherwise negative. Past medical history: See below Surgical history: See below Social history: See below Physical Exam: GENERAL: Wearing a mask, NAD, non-toxic. EYE EXAM: Normal conjunctiva. PERRL, no anisocoria and EOM's grossly intact w/o pain. NECK: Supple, no nuchal rigidity, no adenopathy, non-tender. No signs of meningismus. LUNGS: Clear to auscultation. Normal chest wall mechanics. HEART: NSR, no MRG. ABDOMEN: Abdomen soft, non-tender, normo-active bowel sounds, no masses, no rebound or guarding. BACK: No CVA TTP. SKIN: No rashes and no bruising. UPPER EXTREMITIES: Upper extremities are grossly normal. LOWER EXTREMITIES: Grossly normal, no edema. NEURO EXAM: A&O x3, cranial nerves II-XII grossly intact, normal speech, moves all 4 extremities on command w/o issue. Psych: Positive SI, negative HI, positive AVH. Differential diagnoses: Mood disorder, infection, hypoglycemia, electrolyte abnormalities, cardiac sources, intracerebral event, toxicologic, trauma, neurologic, as well as other pathologies. Course: Patient was seen and evaluated the bedside. Full history physical exam was performed. MDM: Patient was seen in eval at the bedside. The patient was deemed medically cleared. The patient was seen and evaluated by psych disease case manager and referral was made for inpatient treatment as the patient was a voluntary 201. Patient was signed out to Dr. Devaughn pending formal acceptance. Past Med/Surg History Medical History Anxiety (Acute) Auditory hallucinations (Resolved) Bipolar disorder (Chronic) Depression Hypothyroidism Intellectual disability Intellectual disability PCOS (polycystic ovarian syndrome) (Chronic) Surgical History No pertinent past surgical history Family History Other Family history non-contributory Social History Preferred Language: Yakut Communication Ability: Effective Run Lead Required: No Beliefs That Will Affect Care: None Current Living Situation Comment: [facility] Feels Safe at Home: Yes Smoking Status: Former smoker Allergies Allergies Allergy/AdvReac Type Severity Reaction Status Date / Time [place] Allergy Unknown PALM Uncoded 10/26/19 22:13 TREE-CAN'T REMEMBER Home Meds Home Medications Medication Instructions Recorded Confirmed benztropine 1 mg PO BID 09/12/18 11/29/19 cholecalciferol (vitamin D3) 2,000 unit PO QAM 09/12/18 11/29/19 [Vitamin D3] fluticasone propionate [Flonase 2 spray INTRANASAL QPM 09/12/18 11/29/19 Allergy Relief] haloperidol 5 mg PO DAILY 09/12/18 11/29/19 haloperidol 10 mg PO AMHS 09/12/18 11/29/19 levothyroxine 100 mcg PO DAILYBB 09/12/18 11/29/19 sertraline 100 mg PO QAM 09/12/18 11/29/19 sodium chloride [Saline Nasal] 1 spray INTRANASAL DIRECTED PRN 09/12/18 11/29/19 topiramate 50 mg PO QAM 09/12/18 11/29/19 topiramate 100 mg PO HS 09/12/18 11/29/19 nystatin 1 applic TOPICAL BID 10/26/19 11/29/19 omeprazole 20 mg PO DAILY 10/26/19 11/29/19 Results & Data (ED) Vital Signs Vital Signs - 24 hr 11/29/19 19:40 Temperature 36.8 C Temperature Source Oral Pulse Rate 66 Pulse Rhythm Regular Pulse Strength Normal Respiratory Rate 20 Respiratory Effort / Characteristics Non-Labored Spontaneous Respiratory Depth Normal Respiratory Pattern Regular Blood Pressure 138/67 Blood Pressure Mean 90 Pulse Oximetry 97 Oxygen Delivery Method Room Air Sepsis Recent Fever Within 48 Hours No Sepsis Action Taken by Nursing No Action Required Home Medications Current Medication List: was personally reviewed by me Laboratory Data Attestation: I reviewed the patient's lab results. Result diagrams: 11/29/19 20:39 11/29/19 20:39 Lab Results 11/29/19 11/29/19 11/29/19 Range/Units 20:15 20:15 20:15 WBC (4.8-10.8) K/uL RBC (4.2-5.4) M/uL Hgb (12.0-16.0) g/dL Hct (37-47) % MCV (80-100) fL MCH (25-34) pg MCHC (32-36) g/dL RDW Std Deviation (36.4-46.3) fL RDW Coeff of Alysia (11.5-14.5) % Plt Count (130-400) K/uL MPV (7.4-10.4) fL Immature Gran % (Auto) % Neut % (Auto) % Lymph % (Auto) % [place] % (Auto) % Eos % (Auto) % Baso % (Auto) % Immature Gran # (Auto) (0.00-0.02) K/uL Neut # (Auto) (1.4-6.5) K/uL Lymph # (Auto) (1.2-3.4) K/uL [place] # (Auto) (0.11-0.59) K/uL Eos # (Auto) (0-0.5) K/uL Baso # (Auto) (0-0.2) K/uL Sodium (136-145) mmol/L Potassium (3.5-5.1) mmol/L Chloride (98-107) mmol/L Carbon Dioxide (21-32) mmol/L Anion Gap (3-11) BUN (7-18) mg/dl Creatinine (0.6-1.2) mg/dl Est Cr Clr Drug Dosing Est GFR ( Amer) Est GFR (Non-Af Amer) BUN/Creatinine Ratio (10-20) Glucose (70-99) mg/dl Calcium (8.5-10.1) mg/dl Total Bilirubin (0.2-1) mg/dl AST (15-37) U/L ALT (12-78) U/L Alkaline Phosphatase (45-117) U/L Total Protein (6.4-8.2) gm/dl Albumin (3.4-5.0) gm/dl Globulin (2.5-4.0) gm/dl Albumin/Globulin Ratio (0.9-2) TSH (0.300-4.500) uIu/ml Urine Color Yellow Urine Appearance Clear (Clear) Urine pH 7.0 (4.5-7.5) Ur Specific [place] 1.005 (1.000-1.030) Urine Protein Negative (Negative) Urine Glucose (UA) Negative (Negative) Urine Ketones Negative (Negative) Urine Blood Negative (Negative) Urine Nitrite Negative (Negative) Urine Bilirubin Negative (Negative) Urine Urobilinogen Negative (Negative) Ur Leukocyte Esterase Negative (Negative) Urine Test Negative (Negative) Salicylates (2.8-20) mg/dl Urine Opiates Screen Neg (Neg) Ur Methadone, Qual Neg (Neg) Acetaminophen (10-30) ug/ml Urine Barbiturates Neg (Neg) Ur Phencyclidine (PCP) Neg (Neg) U Amphetamin/Meth Scrn Neg (Neg) MDMA (Ecstasy) Screen Neg (Neg) U Benzodiazepines Scrn Neg (Neg) Ur Cocaine Metabolite Neg (Neg) U Marijuana (THC) Screen Neg (Neg) Ethyl Alcohol mg/dL (0-3) mg/dl 11/29/19 11/29/19 11/29/19 Range/Units 20:39 20:39 20:39 WBC 8.25 (4.8-10.8) K/uL RBC 4.67 (4.2-5.4) M/uL Hgb 14.1 (12.0-16.0) g/dL Hct 42.0 (37-47) % MCV 89.9 (80-100) fL MCH 30.2 (25-34) pg MCHC 33.6 (32-36) g/dL RDW Std Deviation 43.8 (36.4-46.3) fL RDW Coeff of Alysia 13.4 (11.5-14.5) % Plt Count 189 (130-400) K/uL MPV 9.7 (7.4-10.4) fL Immature Gran % (Auto) 0.4 % Neut % (Auto) 60.3 % Lymph % (Auto) 26.9 % [place] % (Auto) 11.2 % Eos % (Auto) 0.8 % Baso % (Auto) 0.4 % Immature Gran # (Auto) 0.03 H (0.00-0.02) K/uL Neut # (Auto) 4.98 (1.4-6.5) K/uL Lymph # (Auto) 2.22 (1.2-3.4) K/uL [place] # (Auto) 0.92 H (0.11-0.59) K/uL Eos # (Auto) 0.07 (0-0.5) K/uL Baso # (Auto) 0.03 (0-0.2) K/uL Sodium 141 (136-145) mmol/L Potassium 3.7 (3.5-5.1) mmol/L Chloride 111 H (98-107) mmol/L Carbon Dioxide 25 (21-32) mmol/L Anion Gap 5.0 (3-11) BUN 11 (7-18) mg/dl Creatinine 0.94 (0.6-1.2) mg/dl Est Cr Clr Drug Dosing Not Reportable Est GFR ( Amer) 82.0 Est GFR (Non-Af Amer) 70.7 BUN/Creatinine Ratio 11.7 (10-20) Glucose 90 (70-99) mg/dl Calcium 9.0 (8.5-10.1) mg/dl Total Bilirubin 0.3 (0.2-1) mg/dl AST 20 (15-37) U/L ALT 40 (12-78) U/L Alkaline Phosphatase 105 (45-117) U/L Total Protein 7.7 (6.4-8.2) gm/dl Albumin 4.1 (3.4-5.0) gm/dl Globulin 3.6 (2.5-4.0) gm/dl Albumin/Globulin Ratio 1.1 (0.9-2) TSH 0.663 (0.300-4.500) uIu/ml Urine Color Urine Appearance (Clear) Urine pH (4.5-7.5) Ur Specific [place] (1.000-1.030) Urine Protein (Negative) Urine Glucose (UA) (Negative) Urine Ketones (Negative) Urine Blood (Negative) Urine Nitrite (Negative) Urine Bilirubin (Negative) Urine Urobilinogen (Negative) Ur Leukocyte Esterase (Negative) Urine Test (Negative) Salicylates < 1.7 L (2.8-20) mg/dl Urine Opiates Screen (Neg) Ur Methadone, Qual (Neg) Acetaminophen < 2 L (10-30) ug/ml Urine Barbiturates (Neg) Ur Phencyclidine (PCP) (Neg) U Amphetamin/Meth Scrn (Neg) MDMA (Ecstasy) Screen (Neg) U Benzodiazepines Scrn (Neg) Ur Cocaine Metabolite (Neg) U Marijuana (THC) Screen (Neg) Ethyl Alcohol mg/dL (0-3) mg/dl 11/29/19 Range/Units 20:39 WBC (4.8-10.8) K/uL RBC (4.2-5.4) M/uL Hgb (12.0-16.0) g/dL Hct (37-47) % MCV (80-100) fL MCH (25-34) pg MCHC (32-36) g/dL RDW Std Deviation (36.4-46.3) fL RDW Coeff of Alysia (11.5-14.5) % Plt Count (130-400) K/uL MPV (7.4-10.4) fL Immature Gran % (Auto) % Neut % (Auto) % Lymph % (Auto) % [place] % (Auto) % Eos % (Auto) % Baso % (Auto) % Immature Gran # (Auto) (0.00-0.02) K/uL Neut # (Auto) (1.4-6.5) K/uL Lymph # (Auto) (1.2-3.4) K/uL [place] # (Auto) (0.11-0.59) K/uL Eos # (Auto) (0-0.5) K/uL Baso # (Auto) (0-0.2) K/uL Sodium (136-145) mmol/L Potassium (3.5-5.1) mmol/L Chloride (98-107) mmol/L Carbon Dioxide (21-32) mmol/L Anion Gap (3-11) BUN (7-18) mg/dl Creatinine (0.6-1.2) mg/dl Est Cr Clr Drug Dosing Est GFR ( Amer) Est GFR (Non-Af Amer) BUN/Creatinine Ratio (10-20) Glucose (70-99) mg/dl Calcium (8.5-10.1) mg/dl Total Bilirubin (0.2-1) mg/dl AST (15-37) U/L ALT (12-78) U/L Alkaline Phosphatase (45-117) U/L Total Protein (6.4-8.2) gm/dl Albumin (3.4-5.0) gm/dl Globulin (2.5-4.0) gm/dl Albumin/Globulin Ratio (0.9-2) TSH (0.300-4.500) uIu/ml Urine Color Urine Appearance (Clear) Urine pH (4.5-7.5) Ur Specific [place] (1.000-1.030) Urine Protein (Negative) Urine Glucose (UA) (Negative) Urine Ketones (Negative) Urine Blood (Negative) Urine Nitrite (Negative) Urine Bilirubin (Negative) Urine Urobilinogen (Negative) Ur Leukocyte Esterase (Negative) Urine Test (Negative) Salicylates (2.8-20) mg/dl Urine Opiates Screen (Neg) Ur Methadone, Qual (Neg) Acetaminophen (10-30) ug/ml Urine Barbiturates (Neg) Ur Phencyclidine (PCP) (Neg) U Amphetamin/Meth Scrn (Neg) MDMA (Ecstasy) Screen (Neg) U Benzodiazepines Scrn (Neg) Ur Cocaine Metabolite (Neg) U Marijuana (THC) Screen (Neg) Ethyl Alcohol mg/dL < 3.0 (0-3) mg/dl Administered Medications Acetaminophen (Tylenol) 650 mg PO Q4H PRN PRN Reason: Headache or Minor Fever Stop: 12/30/19 02:27 Last Admin: 11/30/19 19:17 Dose: 650 mg Documented by: [id number] Admin: 11/30/19 10:59 Dose: 650 mg Documented by: [id number] Benztropine Mesylate (Cogentin) 1 mg PO BID TOSIN Stop: 12/30/19 08:59 Last Admin: 12/01/19 08:59 Dose: 1 mg Documented by: [id number] Admin: 11/30/19 20:52 Dose: 1 mg Documented by: [id number] Admin: 11/30/19 09:34 Dose: 1 mg Documented by: [id number] Fluticasone Propionate (Flonase) 2 sprays NA DAILY@1500 [facility] Stop: 12/30/19 14:59 Last Admin: 11/30/19 14:56 Dose: 2 sprays Documented by: [id number] Haloperidol (Haldol) 5 mg PO DAILY@1500 [facility] Stop: 12/30/19 14:59 Last Admin: 11/30/19 14:56 Dose: 5 mg Documented by: [id number] Haloperidol (Haldol) 10 mg PO AMHS [facility] Stop: 12/30/19 08:59 Last Admin: 12/01/19 08:59 Dose: 10 mg Documented by: [id number] Admin: 11/30/19 20:53 Dose: 10 mg Documented by: [id number] Admin: 11/30/19 09:35 Dose: 10 mg Documented by: [id number] Levothyroxine Sodium (Synthroid) 100 mcg PO DAILYBB [facility] Stop: 12/30/19 07:59 Last Admin: 12/01/19 07:45 Dose: 100 mcg Documented by: [id number] Admin: 11/30/19 09:35 Dose: 100 mcg Documented by: [id number] Nystatin (Mycostatin) 1 appln EXT BID@0800,1500 [facility] Stop: 12/30/19 14:59 Last Admin: 12/01/19 07:45 Dose: 1 appln Documented by: [id number] Admin: 11/30/19 14:55 Dose: 1 appln Documented by: [id number] Pantoprazole Sodium (Protonix) 40 mg PO DAILY@1530 [facility] Stop: 12/30/19 15:29 Last Admin: 11/30/19 15:37 Dose: 40 mg Documented by: [id number] Sertraline HCl (Zoloft) 100 mg PO QAM [facility] Stop: 12/30/19 08:59 Last Admin: 12/01/19 08:59 Dose: 100 mg Documented by: [id number] Admin: 11/30/19 09:35 Dose: 100 mg Documented by: [id number] Topiramate (Topamax) 100 mg PO HS [facility] Stop: 12/30/19 21:59 Last Admin: 11/30/19 20:55 Dose: 100 mg Documented by: [id number] Topiramate (Topamax) 50 mg PO QAM [facility] Stop: 12/30/19 08:59 Last Admin: 12/01/19 08:59 Dose: 50 mg Documented by: [id number] Admin: 11/30/19 09:35 Dose: 50 mg Documented by: [id number] Vitamin D (Vitamin D3) 2,000 units PO QAM [facility] Stop: 12/30/19 08:59 Last Admin: 12/01/19 08:59 Dose: 2,000 units Documented by: [id number] Admin: 11/30/19 09:35 Dose: 2,000 units Documented by: [id number] Discharge Plan Visit Data *Final* Discharge Date/Time: 11/30/19 02:07 Chief Complaint: Mental Health Evaluation ED Provider: Jose Carlos Sharma Discharge Problem: Depression with suicidal ideation Patient Disposition: Admitted As Inpatient Discharge Instructions Interventions: ED Discharge Assessment Last Done: 11/30/19 02:07
[2019-11-29 21:01] LABS: Appearance Urine Clear (Clear); Bilirubin Urine Negative (Negative); Blood Urine Negative (Negative); Color Urine Yellow; Glucose Urine UA Negative (Negative); Ketones Urine Negative (Negative); Leukocyte Esterase Urine Negative (Negative); Nitrite Urine Negative (Negative); Pregnancy Test, Urine Negative (Negative); Protein Urine Negative (Negative); Specific Gravity Urine 1.005 (1.000-1.030); Urobilinogen Urine Negative (Negative)
[2019-11-29 21:15] LABS: Basophils # (auto) 0.03 K/uL (0-0.2); Basophils % (auto) 0.4 %; Eosinophils # (auto) 0.07 K/uL (0-0.5); Eosinophils % (auto) 0.8 %; Hemoglobin 14.1 g/dL (12.0-16.0); Immature Granulocytes # (auto) 0.03 K/uL (0.00-0.02); Immature Granulocytes % (auto) 0.4 %; Lymphocytes # (auto) 2.22 K/uL (1.2-3.4); Lymphocytes % (auto) 26.9 %; Mean Corpuscular Hemoglobin 30.2 pg (25-34); Mean Corpuscular Hgb Conc 33.6 g/dL (32-36); Mean Corpuscular Volume 89.9 fL (80-100); Mean Platelet Volume 9.7 fL (7.4-10.4); Monocytes # (auto) 0.92 K/uL (0.11-0.59); Monocytes % (auto) 11.2 %; Neutrophils # (auto) 4.98 K/uL (1.4-6.5); Neutrophils % (auto) 60.3 %; Platelet Count 189 K/uL (130-400); RDW Coefficient of Variation 13.4 % (11.5-14.5); RDW Standard Deviation 43.8 fL (36.4-46.3); Red Blood Count 4.67 M/uL (4.2-5.4); White Blood Count 8.25 K/uL (4.8-10.8)
[2019-11-29 21:20] LABS: Amphetamines+Metham, Urine Neg (Neg); Barbiturates, Urine Neg (Neg); Benzodiazepine, Urine Neg (Neg); Cocaine, Urine Neg (Neg); MDMA (Ecstacy), Urine Neg (Neg); Methadone, Urine Neg (Neg); Opiate, Urine Neg (Neg); Phencyclidine, Urine Neg (Neg)
[2019-11-29 21:33] LABS: Alanine Aminotransferase 40 U/L (12-78); Albumin Level 4.1 gm/dl (3.4-5.0); Aspartate Aminotransferase 20 U/L (15-37); BUN Creatinine Ratio 11.7 (10-20); Blood Urea Nitrogen 11 mg/dl (7-18); Carbon Dioxide 25 mmol/L (21-32); Chloride 111 mmol/L (98-107); Est GFR (Non-African American) 70.7; Glucose 90 mg/dl (70-99); Potassium 3.7 mmol/L (3.5-5.1); Sodium 141 mmol/L (136-145)
[2019-11-29 21:43] LABS: Albumin Globulin Ratio 1.1 (0.9-2); Alkaline Phosphatase 105 U/L (45-117); Bilirubin,Total 0.3 mg/dl (0.2-1); Globulin 3.6 gm/dl (2.5-4.0); Thyroid Stimulating Hormone 0.663 uIu/ml (0.300-4.500); Total Protein 7.7 gm/dl (6.4-8.2)
[2019-11-29 22:04] LABS: Acetaminophen < 2 ug/ml (10-30)
[2019-11-29 22:05] LABS: Salicylate < 1.7 mg/dl (2.8-20)
[2019-11-30] MEDS ORDERED: BISMUTH SUBSALICYLATE PER ML OMNICELL CHARGE PO PRN (02:28)
[2019-11-30] MEDS ORDERED: SODIUM CHLORIDE 0.65% NA SOLN 45 ML (OCEAN) PRN ×2 (02:28→07:51)
[2019-11-30] MEDS ORDERED: ALUMINUM/MAGNESIUM SUSP 30 ML UDC PO PRN (02:28)
[2019-11-30] MEDS ORDERED: MAGNESIUM HYDROXIDE SUSP 30 ML UDC PO PRN (02:28)
--- NOTE | 2019-11-30 05:04 | Emergency Department Note ---
ED Visit Note I received this patient in signout at the change of shift from Dr. Sharma, pending final disposition. The patient was accepted on a 201 to 3 S. for count includes the [facility]. Please see previous documentation for further detail of the history, physical and visit. .
--- NOTE | 2019-11-30 08:04 | History & Physical ---
Date of Service November 30, 2019 Impression / Recommendations Impression 49-year-old female who resides in a [facility] half-way, has a history of intellectual disability, mood disorder, and schizophrenia, and presents with command auditory hallucinations to kill herself and worsening mood. She gives inconsistent reports about the of her father, as she told me he 1 week ago, but told the social sciences research scientist he 1 or 2 years ago. On review of past records, there has been some question in the past as to the veracity of her auditory hallucinations. She has had variable diagnoses in the past, and we will need to get outpatient records for additional information, as she is a poor historian. For now, inpatient treatment is medically necessary due to the severity of her symptoms and risk for self-harm if discharged prematurely. (1) Auditory hallucinations: 11/29 -command auditory hallucinations to harm herself. Per records, has been diagnosed with schizophrenia in the past, versus personality disorder. Obtain records from [facility] to clarify diagnosis. -Continue haloperidol at home dose; fasting labs ordered for tomorrow. -Reality testing and reassurance. Work on healthy coping skills for managing voices. (2) Depression: 11/29 -per records has been diagnosed with bipolar disorder and recurrent depression in the past. During previous admissions here, she has been depressed. Again, review outpatient records clarify diagnosis. -Continue sertraline 100 mg daily, and consider dose titration to target mood. -Current mood symptoms influenced by loss of multiple family members in the past several years. Encourage group attendance and participation, process grief, and work on healthy coping skills. Coordinate with outpatient supports/services. (3) Intellectual disability: Contact rn case management and clarify IQ/reading level. Present material to the patient at a level that she can understand. (4) Hypothyroidism: Continue home dose of levothyroxine. TSH normal. Hypothyroidism type: unspecified Qualified Code(s): E03.9 - Hypothyroidism, unspecified Risk Factors Assessment Male: No : Yes Do You Have Access To A Gun?: No Health Problems: Yes Mental Health Diagnoses: Yes Substance Use Disorders: No Previous Attempt: No Previous Psychiatric Hospitalization: Yes Hopelessness: Yes Smoker: No Protective Factors Assessment : No Responsible for Young Children: No Employed: No Stable Relationships: Yes Supportive Family: No Good Rapport with Provider: Yes Psychiatric History Identifying Data TAWANA VACA is a 49-year-old F who currently lives in a [facility], has a history of depression, bipolar, and schizophrenia, and was admitted on 11/30/19 01:30 on a 201 voluntary commitment for SI with a plan to jump out a window. Chief Complaint "Rough". History of Present Illness Patient presented to the ER reporting worsening mood in the context of multiple losses, as over the past 3 years, her mother, father, and brother have all . She has extensive outpatient services including a diversion plan, and had reportedly been assessed at the [facility], and had also been in our ER several days prior. Admission labs were unremarkable, and she signed in voluntarily and was continued on her home medications. On my assessment, she states that her dad 1 week ago, which caused worsening mood. She feels she has been depressed for "a long time," weeks to months. She endorses command auditory hallucinations, hearing the voices of her parents and brother telling her to jump out a window. She does not want to act on these, and manages them by "I say no!" The voices are distressing, and she currently feels unable to cope. She reports good support from her half-way staff, and says it helps her to talk to people. She denies paranoia, delusions, homicidal ideation, manic symptoms, and any recent medication changes. She reports good medication compliance and denies side effects. Past Psychiatric History Previous Psych History: Has previously been diagnosed with MDD, bipolar, schizophrenia, and personality disorder Current Psychiatric Diagnosis: Bipolar d/o Outpatient Services: [facility] - Christine Connor PhD PALLIATIVE NURSE traffic incident management manager through [facility] Previous Psych Admissions: Numerous, last here 12/2018 Do You Have Access To A Gun?: No History of Previous Suicide Attempt: No Allergies Allergy/AdvReac Type Severity Reaction Status Date / Time [place] Allergy Unknown PALM Uncoded 10/26/19 22:13 TREE-CAN'T REMEMBER Home Medications Home Medications Medication Instructions Recorded Confirmed Type benztropine 1 mg PO BID 09/12/18 11/29/19 History cholecalciferol (vitamin D3) 2,000 unit PO QAM 09/12/18 11/29/19 History [Vitamin D3] fluticasone propionate [Flonase 2 spray INTRANASAL QPM 09/12/18 11/29/19 History Allergy Relief] haloperidol 5 mg PO DAILY 09/12/18 11/29/19 History haloperidol 10 mg PO AMHS 09/12/18 11/29/19 History levothyroxine 100 mcg PO DAILYBB 09/12/18 11/29/19 History sertraline 100 mg PO QAM 09/12/18 11/29/19 History sodium chloride [Saline Nasal] 1 spray INTRANASAL DIRECTED PRN 09/12/18 11/29/19 History topiramate 50 mg PO QAM 09/12/18 11/29/19 History topiramate 100 mg PO HS 09/12/18 11/29/19 History nystatin 1 applic TOPICAL BID 10/26/19 11/29/19 History omeprazole 20 mg PO DAILY 10/26/19 11/29/19 History Family History Family History of: None Alcohol History Hx of Alcohol Use Over the Past 12 Months: No AUDIT Total Score: 0 Smoking Use Smoking Status: Former smoker Substance History Hx of Prescription Med Misuse Over the Past 12 Months: No Hx of Over the Counter Med Misuse Over the Past 12 Months: No Hx of Inhalent Misuse Over the Past 12 Months: No Hx of Organic Substance Use Over the Past 12 Months: No Hx of Illegal Substances/Street Drug Use Over Past 12 Months: No Problems as a Result of Past Substance Use: None Identified Personal History Living Arrangements: Supervised Living Living Arrangements Comments: [facility] half-way Highest Grade Completed: High School Graduate (special education) Employment Status: Disabled Marital Status: Beliefs That Will Affect Care: None Current Legal Problems: No Hx Legal Problems: No Hx Traumatic Life Events: No Patient History Medical History (Updated 11/30/19 @ 11:52 by Ashley Hallman MD) Anxiety (Acute) Auditory hallucinations (Resolved) Bipolar disorder (Chronic) Depression Hypothyroidism Intellectual disability Intellectual disability PCOS (polycystic ovarian syndrome) (Chronic) Surgical History No pertinent past surgical history Social History Preferred Language: Syrian Communication Ability: Effective Market Research Lead Required: No Beliefs That Will Affect Care: None Current Living Situation Comment: [facility] Feels Safe at Home: Yes Smoking Status: Former smoker Review of Systems Review of Systems: All systems reviewed & are unremarkable except as noted in HPI & below Physical Exam Psychiatric: Orientation: alert and cooperative Apperance: appropriately dressed and appropriately groomed Eye Contact: good eye contact Motor Behavior: steady gait and station and no abnormal motor movements monotone Affect: + blunted affect Mood: + depressed mood Thought Process: + concrete thought process Thought Content: + hopelessness and + loneliness Suicidal Thoughts: + reports suicidal thoughts Homicidal Thoughts: denies homicidal thoughts Hallucinations: + auditory hallucinations (command); no visual hallucinations Cognition: attention grossly intact and language gross ly intact; + recent memory not intact and + remote memory not intact Estimated Intelligence: + below average estimated intelligence Insight: + scot r insight Judgement: + fair judgement Vital Signs (Past 24 Hours): Last Vital Signs Temp 36.3 C L 11/30/19 06:34 Pulse 59 L 11/30/19 06:35 Resp 20 11/30/19 06:34 BP 120/76 11/30/19 06:35 Pulse Ox 98 11/30/19 02:07 Exam Statement: A physical exam was performed in the ER prior to admission to the unit by Dr. Jose Carlos Sharma. I accept that physical as correct/medical clearance for the inpatient physical exam. Results & Data ([facility]) Laboratory Results Laboratory Results - last 24 hr 11/29/19 11/29/19 11/29/19 20:15 20:15 20:15 WBC RBC Hgb Hct MCV MCH MCHC RDW Std Deviation RDW Coeff of Alysia Plt Count MPV Immature Gran % (Auto) Neut % (Auto) Lymph % (Auto) [place] % (Auto) Eos % (Auto) Baso % (Auto) Immature Gran # (Auto) Neut # (Auto) Lymph # (Auto) [place] # (Auto) Eos # (Auto) Baso # (Auto) Sodium Potassium Chloride Carbon Dioxide Anion Gap BUN Creatinine Est Cr Clr Drug Dosing Est GFR ( Amer) Est GFR (Non-Af Amer) BUN/Creatinine Ratio Glucose Calcium Total Bilirubin AST ALT Alkaline Phosphatase Total Protein Albumin Globulin Albumin/Globulin Ratio TSH Urine Color Yellow Urine Appearance Clear Urine pH 7.0 Ur Specific [place] 1.005 Urine Protein Negative Urine Glucose (UA) Negative Urine Ketones Negative Urine Blood Negative Urine Nitrite Negative Urine Bilirubin Negative Urine Urobilinogen Negative Ur Leukocyte Esterase Negative Urine Test Negative Salicylates Urine Opiates Screen Neg Ur Methadone, Qual Neg Acetaminophen Urine Barbiturates Neg Ur Phencyclidine (PCP) Neg U Amphetamin/Meth Scrn Neg MDMA (Ecstasy) Screen Neg U Benzodiazepines Scrn Neg Ur Cocaine Metabolite Neg U Marijuana (THC) Screen Neg Ethyl Alcohol mg/dL 11/29/19 11/29/19 11/29/19 20:39 20:39 20:39 WBC 8.25 RBC 4.67 Hgb 14.1 Hct 42.0 MCV 89.9 MCH 30.2 MCHC 33.6 RDW Std Deviation 43.8 RDW Coeff of Alysia 13.4 Plt Count 189 MPV 9.7 Immature Gran % (Auto) 0.4 Neut % (Auto) 60.3 Lymph % (Auto) 26.9 [place] % (Auto) 11.2 Eos % (Auto) 0.8 Baso % (Auto) 0.4 Immature Gran # (Auto) 0.03 H Neut # (Auto) 4.98 Lymph # (Auto) 2.22 [place] # (Auto) 0.92 H Eos # (Auto) 0.07 Baso # (Auto) 0.03 Sodium 141 Potassium 3.7 Chloride 111 H Carbon Dioxide 25 Anion Gap 5.0 BUN 11 Creatinine 0.94 Est Cr Clr Drug Dosing Not Reportable Est GFR ( Amer) 82.0 Est GFR (Non-Af Amer) 70.7 BUN/Creatinine Ratio 11.7 Glucose 90 Calcium 9.0 Total Bilirubin 0.3 AST 20 ALT 40 Alkaline Phosphatase 105 Total Protein 7.7 Albumin 4.1 Globulin 3.6 Albumin/Globulin Ratio 1.1 TSH 0.663 Urine Color Urine Appearance Urine pH Ur Specific [place] Urine Protein Urine Glucose (UA) Urine Ketones Urine Blood Urine Nitrite Urine Bilirubin Urine Urobilinogen Ur Leukocyte Esterase Urine Test Salicylates < 1.7 L Urine Opiates Screen Ur Methadone, Qual Acetaminophen < 2 L Urine Barbiturates Ur Phencyclidine (PCP) U Amphetamin/Meth Scrn MDMA (Ecstasy) Screen U Benzodiazepines Scrn Ur Cocaine Metabolite U Marijuana (THC) Screen Ethyl Alcohol mg/dL 11/29/19 20:39 WBC RBC Hgb Hct MCV MCH MCHC RDW Std Deviation RDW Coeff of Alysia Plt Count MPV Immature Gran % (Auto) Neut % (Auto) Lymph % (Auto) [place] % (Auto) Eos % (Auto) Baso % (Auto) Immature Gran # (Auto) Neut # (Auto) Lymph # (Auto) [place] # (Auto) Eos # (Auto) Baso # (Auto) Sodium Potassium Chloride Carbon Dioxide Anion Gap BUN Creatinine Est Cr Clr Drug Dosing Est GFR ( Amer) Est GFR (Non-Af Amer) BUN/Creatinine Ratio Glucose Calcium Total Bilirubin AST ALT Alkaline Phosphatase Total Protein Albumin Globulin Albumin/Globulin Ratio TSH Urine Color Urine Appearance Urine pH Ur Specific [place] Urine Protein Urine Glucose (UA) Urine Ketones Urine Blood Urine Nitrite Urine Bilirubin Urine Urobilinogen Ur Leukocyte Esterase Urine Test Salicylates Urine Opiates Screen Ur Methadone, Qual Acetaminophen Urine Barbiturates Ur Phencyclidine (PCP) U Amphetamin/Meth Scrn MDMA (Ecstasy) Screen U Benzodiazepines Scrn Ur Cocaine Metabolite U Marijuana (THC) Screen Ethyl Alcohol mg/dL < 3.0 Current Inpatient Medications Current Inpatient Medications: Current Inpatient Medications Acetaminophen (Tylenol) 650 mg PO Q4H PRN PRN Reason: Headache or Minor Fever Stop: 12/30/19 02:27 Al Hydrox/Mg Hydrox/Simethicone (Maalox) 30 ml PO Q4H PRN PRN Reason: GI Upset Stop: 12/30/19 02:27 Benztropine Mesylate (Cogentin) 1 mg PO BID TOSIN Stop: 12/30/19 08:59 Bismuth Subsalicylate (Kaopectate) 15 ml PO PRN PRN PRN Reason: Loose Stool Stop: 12/30/19 02:27 Fluticasone Propionate (Flonase) 2 sprays NA QPM TOSIN Stop: 12/30/19 20:59 Haloperidol (Haldol) 5 mg PO DAILY TOISN Stop: 12/30/19 08:59 Haloperidol (Haldol) 10 mg PO AMHS TOSIN Stop: 12/30/19 08:59 Hydroxyzine HCl (Vistaril) 50 mg PO HSZ PRN PRN Reason: Insomnia Stop: 12/30/19 02:27 Hydroxyzine HCl (Vistaril) 25 mg PO Q4H PRN PRN Reason: Anxiety Stop: 12/30/19 02:27 Levothyroxine Sodium (Synthroid) 100 mcg PO DAILYBB [facility] Stop: 12/30/19 07:59 Magnesium Hydroxide (Milk Of Magnesia) 30 ml PO DAILY PRN PRN Reason: Constipation Stop: 12/30/19 02:27 Non-Formulary Medication (Cholecalciferol (Vitamin D3) [Vitamin D3]) 2,000 units PO QAM [facility] Stop: 12/30/19 08:59 Nystatin (Mycostatin) 1 appln EXT BID [facility] Stop: 12/30/19 08:59 Pantoprazole Sodium (Protonix) 40 mg PO TODAY [facility] Stop: 12/30/19 15:29 Sertraline HCl (Zoloft) 100 mg PO QAM [facility] Stop: 12/30/19 08:59 Sodium Chloride ([place] Nasal) 1 - 2 sprays NA PRN PRN PRN Reason: Nasal Dryness/Congestion Stop: 12/30/19 02:27 Sodium Chloride ([place] Nasal) 1 sprays NA DIRECTED PRN PRN Reason: DRYNESS/NOSE BLEEDS Stop: 12/30/19 07:50 Topiramate (Topamax) 100 mg PO [facility] Stop: 12/30/19 21:59 Topiramate (Topamax) 100 mg PO [facility] Stop: 12/30/19 21:59 Topiramate (Topamax) 50 mg PO QAM [facility] Stop: 12/30/19 08:59
[2019-11-30] MEDS: BENZTROPINE MESYLATE 1 MG TAB PO SCH ×2 (09:34→20:52)
[2019-11-30] MEDS: TOPIRAMATE 50 MG TAB PO SCH (09:35)
[2019-11-30] MEDS: SERTRALINE HCL 100 MG TABLET PO SCH (09:35)
[2019-11-30] MEDS: haloperidoL 5 MG TAB PO SCH ×3 (09:35→20:53)
[2019-11-30] MEDS: LEVOTHYROXINE SODIUM 100 MCG TABLET PO SCH (09:35)
[2019-11-30] MEDS: CHOLECALCIFEROL 1,000 UNITS 25 MCG TAB PO SCH (09:35)
[2019-11-30] MEDS ORDERED: haloperidoL 5 MG TAB PO SCH ×2 (10:00→22:00)
[2019-11-30] MEDS: ACETAMINOPHEN 325 MG TAB PO PRN ×2 (10:59→19:17)
[2019-11-30] MEDS: NYSTATIN POWDER 15GM BTL EXT SCH (14:55)
[2019-11-30] MEDS: FLUTICASONE PROPIONATE NA SPR 16 GM BTL SCH (14:56)
[2019-11-30] MEDS: PANTOprazole 40 MG TAB PO SCH (15:37)
[2019-11-30] MEDS: TOPIRAMATE 100 MG TAB PO SCH (20:55)
[2019-11-30] MEDS ORDERED: TOPIRAMATE 100 MG TAB PO SCH (22:00)
[2019-11-30] MEDS ORDERED: BENZTROPINE MESYLATE 1 MG TAB PO SCH (22:00)
[2019-12-01] MEDS: LEVOTHYROXINE SODIUM 100 MCG TABLET PO SCH (07:45)
[2019-12-01] MEDS: NYSTATIN POWDER 15GM BTL EXT SCH ×2 (07:45→14:39)
[2019-12-01 08:19] LABS: Glucose Fasting 98 mg/dl (70-99)
[2019-12-01 08:26] LABS: Chol HDL Ratio 6; Cholesterol 206 mg/dl (0-200); HDL Cholesterol 34 mg/dl; LDL Cholesterol Calculated 139 mg/dl; Triglycerides 163 mg/dl (0-150); VLDL Cholesterol 33 mg/dl
[2019-12-01] MEDS: BENZTROPINE MESYLATE 1 MG TAB PO SCH ×2 (08:59→21:04)
[2019-12-01] MEDS: CHOLECALCIFEROL 1,000 UNITS 25 MCG TAB PO SCH (08:59)
[2019-12-01] MEDS: TOPIRAMATE 50 MG TAB PO SCH (08:59)
[2019-12-01] MEDS: SERTRALINE HCL 100 MG TABLET PO SCH (08:59)
[2019-12-01] MEDS: haloperidoL 5 MG TAB PO SCH ×3 (08:59→21:05)
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
[2019-12-01] MEDS: FLUTICASONE PROPIONATE NA SPR 16 GM BTL SCH (14:39)
[2019-12-01] MEDS: PANTOprazole 40 MG TAB PO SCH (17:27)
[2019-12-01] MEDS: TOPIRAMATE 100 MG TAB PO SCH (21:06)
[2019-12-02] MEDS: NYSTATIN POWDER 15GM BTL EXT SCH ×2 (08:48→15:00)
[2019-12-02] MEDS: LEVOTHYROXINE SODIUM 100 MCG TABLET PO SCH (08:53)
[2019-12-02] MEDS: BENZTROPINE MESYLATE 1 MG TAB PO SCH ×2 (08:53→21:01)
[2019-12-02] MEDS: haloperidoL 5 MG TAB PO SCH ×3 (08:53→21:01)
[2019-12-02] MEDS: CHOLECALCIFEROL 1,000 UNITS 25 MCG TAB PO SCH (08:54)
[2019-12-02] MEDS: SERTRALINE HCL 100 MG TABLET PO SCH (08:54)
[2019-12-02] MEDS: TOPIRAMATE 50 MG TAB PO SCH (08:54)
[2019-12-02] MEDS: PANTOprazole 40 MG TAB PO SCH (15:00)
[2019-12-02] MEDS: FLUTICASONE PROPIONATE NA SPR 16 GM BTL SCH (15:01)
--- NOTE | 2019-12-02 19:28 | Psychiatric Progress Note ---
Date of Service December 02, 2019 Impression / Recommendations Impression 49-year-old female who resides in a [facility] skilled nursing, has a history of intellectual disability, mood disorder, and schizophrenia, and presents with command auditory hallucinations to kill herself and worsening mood. On review of past records, there has been some question in the past as to the veracity of her auditory hallucinations. She has had variable diagnoses in the past, and we will need to get outpatient records for additional information, as she is a poor historian. For now, inpatient treatment is medically necessary due to the severity of her symptoms and risk for self-harm if discharged prematurely. Pt is improving as been in the hospital but at high risk for sudden decompensation if discharged at this point. Aim is to mitagate risks further and setup for a discharge. Father's does appear to have occurred within past couple weeks and is a likely main aggravating factor in pt with very lmited emotional processing and emotional managing skills Risk Factors Assessment Male: No : Yes Do You Have Access To A Gun?: No Health Problems: Yes Mental Health Diagnoses: Yes Substance Use Disorders: No Previous Attempt: No Previous Psychiatric Hospitalization: Yes Hopelessness: Yes Smoker: No Protective Factors Assessment : No Responsible for Young Children: No Employed: No Stable Relationships: Yes Supportive Family: No Good Rapport with Provider: Yes Interval History Chief Complaint "I am good". Review of Systems Sleep Information Total Hours of Sleep: 6 Sleep Comments: admitted during mid shift Meal Information Percent Meal Consumed - Breakfast: 100 Percent Meal Consumed - Lunch: 100 Percent Meal Consumed - Dinner: 100 Subjective Subjective Patient was seen & assessed and interval progress reviewed with nursing and social work. Pt reports doing well and that Ah are not occurring now. She reports feeling good in her mood and currently feels safe. She does not endorse any sense of hwat has her feeling better or safer. She appears open to discharge in near future. denied Si or HI, denied depressive or manic symptoms Physical Exam Psychiatric Orientation: alert, oriented x 3 and cooperative Apperance: appropriately dressed and appropriately groomed Eye Contact: good eye contact Motor Behavior: steady gait and station and no abnormal motor movements Speech: normal rate/rhythm/volume of speech Affect: mood congruent with affect Mood: no depressed mood and no anxious mood good mood Thought Process: + concrete thought process Thought Content: not paranoid and no hopelessness Suicidal Thoughts: denies suicidal thoughts Homicidal Thoughts: denies homicidal thoughts Hallucinations: no auditory hallucinations and no visual hallucinations Cognition: recent memory grossly intact, attention grossly intact and language grossly intact; + remote memory not intact Estimated Intelligence: + below average estimated intelligence Insight: + impaired insight Judgement: + impaired judgement Vital Signs (Past 24 Hours) Last Vital Signs Temp 36.7 C 12/02/19 07:06 Pulse 103 H 12/02/19 07:07 Resp 18 12/02/19 07:06 BP 107/65 12/02/19 07:07 Pulse Ox 98 11/30/19 02:07 Results & Data ([facility]) Current Inpatient Medications Current Inpatient Medications: Current Inpatient Medications Acetaminophen (Tylenol) 650 mg PO Q4H PRN PRN Reason: Headache or Minor Fever Stop: 12/30/19 02:27 Last Admin: 11/30/19 19:17 Dose: 650 mg Documented by: Al Hydrox/Mg Hydrox/Simethicone (Maalox) 30 ml PO Q4H PRN PRN Reason: GI Upset Stop: 12/30/19 02:27 Benztropine Mesylate (Cogentin) 1 mg PO BID [facility] Stop: 12/30/19 08:59 Last Admin: 12/02/19 08:53 Dose: 1 mg Documented by: Bismuth Subsalicylate (Kaopectate) 15 ml PO PRN PRN PRN Reason: Loose Stool Stop: 12/30/19 02:27 Fluticasone Propionate (Flonase) 2 sprays NA DAILY@1500 [facility] Stop: 12/30/19 14:59 Last Admin: 12/02/19 15:01 Dose: 2 sprays Documented by: Haloperidol (Haldol) 5 mg PO DAILY@1500 [facility] Stop: 12/30/19 14:59 Last Admin: 12/02/19 15:00 Dose: 5 mg Documented by: Haloperidol (Haldol) 10 mg PO AMHS [facility] Stop: 12/30/19 08:59 Last Admin: 12/02/19 08:53 Dose: 10 mg Documented by: Hydroxyzine HCl (Vistaril) 50 mg PO HSZ PRN PRN Reason: Insomnia Stop: 12/30/19 02:27 Hydroxyzine HCl (Vistaril) 25 mg PO Q4H PRN PRN Reason: Anxiety Stop: 12/30/19 02:27 Levothyroxine Sodium (Synthroid) 100 mcg PO DAILYBB [facility] Stop: 12/30/19 07:59 Last Admin: 12/02/19 08:53 Dose: 100 mcg Documented by: Magnesium Hydroxide (Milk Of Magnesia) 30 ml PO DAILY PRN PRN Reason: Constipation Stop: 12/30/19 02:27 Nystatin (Mycostatin) 1 appln EXT BID@0800,1500 [facility] Stop: 12/30/19 14:59 Last Admin: 12/02/19 15:00 Dose: 1 appln Documented by: Pantoprazole Sodium (Protonix) 40 mg PO DAILY@1530 [facility] Stop: 12/30/19 15:29 Last Admin: 12/02/19 15:00 Dose: 40 mg Documented by: Sertraline HCl (Zoloft) 100 mg PO QAM [facility] Stop: 12/30/19 08:59 Last Admin: 12/02/19 08:54 Dose: 100 mg Documented by: Sodium Chloride ([place] Nasal) 1 - 2 sprays NA PRN PRN PRN Reason: Nasal Dryness/Congestion Stop: 12/30/19 02:27 Sodium Chloride ([place] Nasal) 1 sprays NA UD PRN PRN Reason: DRYNESS/NOSE BLEEDS Stop: 12/30/19 07:50 Topiramate (Topamax) 100 mg PO [facility] Stop: 12/30/19 21:59 Last Admin: 12/01/19 21:06 Dose: 100 mg Documented by: [facility] (Topamax) [facility] [place] [place] Stop: 12/30/19 08:59 Last Admin: 12/02/19 08:54 Dose: 50 mg Documented by: Vitamin D (Vitamin D3) 2,000 units [facility] [place] [place] Stop: 12/30/19 08:59 Last Admin: 12/02/19 08:54 Dose: 2,000 units Documented by: Mental Health & Subst Abuse Tx Psychiatrist [facility] Date of Appointment with Psychiatrist: 12/07/19 Time of Appointment with Psychiatrist: 1:30pm Psychiatric Appointment Comment: [address], [address], [place], [place] Therapist Name of Therapist: Adriana [facility] Therapist's Date of Therapist Appointment: 12/06/19 Time of Therapist Appointment: 10:30am Truck Driver Heavy Name of Truck Driver Heavy: Milady RibeiroU ID Phone Number for Truck Driver Heavy: [phone] Date of Appointment with Truck Driver Heavy: 12/06/19 Case Management Appointment Comment: Zoom meeting Post Discharge Appointments Primary Care Physician Name Of Family Doctor: Dr. Coombs Primary Care Partial or Psych Rehab Name of Partial or Psych Rehab: Skills Phone Number of Partial or Psych Rehab: [phone] Date of Appointment at Partial or Psych Rehab: 12/05/19 Partial or Psych Rehab Appointment Comment: [address], [place] [address]
[2019-12-02] MEDS: TOPIRAMATE 100 MG TAB PO SCH (21:01)
[2019-12-03] MEDS: CHOLECALCIFEROL 1,000 UNITS 25 MCG TAB PO SCH (08:05)
[2019-12-03] MEDS: TOPIRAMATE 50 MG TAB PO SCH (08:05)
[2019-12-03] MEDS: SERTRALINE HCL 100 MG TABLET PO SCH (08:05)
[2019-12-03] MEDS: LEVOTHYROXINE SODIUM 100 MCG TABLET PO SCH (08:05)
[2019-12-03] MEDS: haloperidoL 5 MG TAB PO SCH ×3 (08:06→21:24)
[2019-12-03] MEDS: BENZTROPINE MESYLATE 1 MG TAB PO SCH ×2 (08:06→21:24)
[2019-12-03] MEDS: NYSTATIN POWDER 15GM BTL EXT SCH ×2 (08:06→14:24)
[2019-12-03] MEDS: ACETAMINOPHEN 325 MG TAB PO PRN (14:24)
[2019-12-03] MEDS: FLUTICASONE PROPIONATE NA SPR 16 GM BTL SCH (14:24)
--- NOTE | 2019-12-03 15:24 | Psychiatric Progress Note ---
Date of Service December 03, 2019 Impression / Recommendations Impression 49-year-old female who resides in a [facility] assisted, has a history of intellectual disability, mood disorder, and schizophrenia, and presents with command auditory hallucinations to kill herself and worsening mood. On review of past records, there has been some question in the past as to the veracity of her auditory hallucinations. She has had variable diagnoses in the past, and we will need to get outpatient records for additional information, as she is a poor historian. For now, inpatient treatment is medically necessary due to the severity of her symptoms and risk for self-harm if discharged prematurely. Pt is improving as been in the hospital but at high risk for sudden decompensation if discharged at this point. Aim is to prepare for likely upcoming discharge with also mitigation of risks, Father's recent likely aggravating factor leading to this admission (1) Auditory hallucinations: 11/29 -command auditory hallucinations to harm herself. Per records, has been diagnosed with schizophrenia in the past, versus personality disorder. Obtain records from [facility] psychological clinic to clarify diagnosis. -Continue haloperidol at home dose; fasting labs ordered for tomorrow. -Reality testing and reassurance. Work on healthy coping skills for managing voices. 11/30 -Patient still reports command auditory hallucination to harm herself. Per her psychiatrist, Christine Connor, PhD, [employer] at [facility] psychological clinic, the patient has been using these auditory hallucinations and suicidal ideations as malingering for secondary gains, including getting attention and care at the hospital and other care providers instead of staff from [facility]. Patient even acknowledged it to her psychiatrist that she had previously endorsed auditory hallucinations in the past at her appointment on 05/03/2019. Reports says that she thinks this is an effective way of making staff to listen to her and she likes the attention that came with it, including ER visits and hospitalizations. She made multiple 911 calls during holiday break last May and June since she felt bored with nothing to do as well as angry/frustrated with the staff. However at the appointment on 10/10/2019, patient reported that she "heard voices" when she was feeling bored and not getting adequate staff attention. Patient's medical records from November 2018 through October 2019 reviewed and she has been following up with her outpatient psychiatrist every 4 to 8 weeks. Her diagnosis is major depressive disorder, recurrent; intellectual disability; malingering. -Given patient's psychiatrist evaluations, patient might not have true auditory hallucinations at this point but we will monitor her suicidal ideation and auditory hallucinations for a couple more days since she claims that her father 2 weeks ago, which is inconsistent though (patient reported this provider and Dr. Hallman that his father 2 weeks ago but she reported to social service liaison that 1-2 years ago he .) 12/01 and 12/02 - denied AH these 2 days (2) Depression: 11/29 -per records has been diagnosed with bipolar disorder and recurrent depression in the past. During previous admissions here, she has been depressed. Again, review outpatient records clarify diagnosis. -Continue sertraline 100 mg daily, and consider dose titration to target mood. -Current mood symptoms influenced by loss of multiple family members in the past several years. Encourage group attendance and participation, process grief, and work on healthy coping skills. Coordinate with outpatient supports/services. 11/30 -Continue sertraline 100 mg daily and titration might not be necessary if she malingered her symptoms at this point. Further evaluation should be done to assess her symptoms but she admits to improvement in her depressive symptoms today. 12/02 - continue treatment plan unchanged and prepare for upcoming disorder (3) Intellectual disability: Contact window caser and clarify IQ/reading level. Present material to the patient at a level that she can understand. (4) Hypothyroidism: Continue home dose of levothyroxine. TSH normal. Risk Factors Assessment Male: No : Yes Do You Have Access To A Gun?: No Health Problems: Yes Mental Health Diagnoses: Yes Substance Use Disorders: No Previous Attempt: No Previous Psychiatric Hospitalization: Yes Hopelessness: Yes Smoker: No Protective Factors Assessment : No Responsible for Young Children: No Employed: No Stable Relationships: Yes Supportive Family: No Good Rapport with Provider: Yes Interval History Chief Complaint "good". Review of Systems Sleep Information Total Hours of Sleep: 7.5 Sleep Comments: admitted during mid shift Meal Information Percent Meal Consumed - Breakfast: 100 Percent Meal Consumed - Lunch: 100 Percent Meal Consumed - Dinner: 100 Subjective Subjective Patient was seen & assessed and interval progress reviewed with nursing and social work. Pt denied having any AH and stated not feeling depressed nor anxious. Her mood is good and she feels that she can handle discharge tomorrow. When inquired about aggravating or alleviating factors for her mood or AH she denied knowing any. When inquired if bereavement of father;s could be a factor she indicated yes. Eating meals fully and sleeping without issue per pt and staff. no behavior problems or agitated noted. pt is calm. denied s/e to her medications Physical Exam Psychiatric Orientation: alert, oriented x 3 and cooperative Apperance: appropriately dressed and appropriately groomed Eye Contact: + fair eye contact Motor Behavior: steady gait and station and no abnormal motor movements Speech: normal rate/rhythm/volume of speech Affect: + constricted affect and mood congruent with affect Mood: no depressed mood and no anxious mood good mood Thought Process: + concrete thought process Thought Content: not paranoid and no hopelessness Suicidal Thoughts: denies suicidal thoughts Homicidal Thoughts: denies homicidal thoughts Hallucinations: no auditory hallucinations and no visual hallucinations Cognition: recent memory grossly intact, attention grossly intact and language grossly intact; + remote memory not intact Estimated Intelligence: + below average estimated intelligence Insight: + impaired insight Judgement: + impaired judgement Vital Signs (Past 24 Hours) Last Vital Signs Temp 36.8 C 12/03/19 06:00 Pulse 66 12/03/19 06:00 Resp 16 12/03/19 06:00 BP 122/70 12/03/19 06:00 Pulse Ox 98 11/30/19 02:07 Results & Data ([facility]) Current Inpatient Medications Current Inpatient Medications: Current Inpatient Medications Acetaminophen (Tylenol) 650 mg PO Q4H PRN PRN Reason: Headache or Minor Fever Stop: 12/30/19 02:27 Last Admin: 12/03/19 14:24 Dose: 650 mg Documented by: Al Hydrox/Mg Hydrox/Simethicone (Maalox) 30 ml PO Q4H PRN PRN Reason: GI Upset Stop: 12/30/19 02:27 Benztropine Mesylate (Cogentin) 1 mg PO BID TOSIN Stop: 12/30/19 08:59 Last Admin: 12/03/19 08:06 Dose: 1 mg Documented by: Bismuth Subsalicylate (Kaopectate) 15 ml PO PRN PRN PRN Reason: Loose Stool Stop: 12/30/19 02:27 Fluticasone Propionate (Flonase) 2 sprays NA DAILY@1500 TOSIN Stop: 12/30/19 14:59 Last Admin: 06/14/20 14:24 Dose: 2 sprays Documented by: Haloperidol (Haldol) 5 mg PO DAILY@1500 [facility] Stop: 12/30/19 14:59 Last Admin: 12/03/19 14:24 Dose: 5 mg Documented by: Haloperidol (Haldol) 10 mg PO AMHS [facility] Stop: 12/30/19 08:59 Last Admin: 12/03/19 08:06 Dose: 10 mg Documented by: Hydroxyzine HCl (Vistaril) 50 mg PO HSZ PRN PRN Reason: Insomnia Stop: 12/30/19 02:27 Hydroxyzine HCl (Vistaril) 25 mg PO Q4H PRN PRN Reason: Anxiety Stop: 12/30/19 02:27 Levothyroxine Sodium (Synthroid) 100 mcg PO DAILYBB [facility] Stop: 12/30/19 07:59 Last Admin: 12/03/19 08:05 Dose: 100 mcg Documented by: Magnesium Hydroxide (Milk Of Magnesia) 30 ml PO DAILY PRN PRN Reason: Constipation Stop: 12/30/19 02:27 Nystatin (Mycostatin) 1 appln EXT BID@0800,1500 [facility] Stop: 12/30/19 14:59 Last Admin: 12/03/19 14:24 Dose: 1 appln Documented by: Pantoprazole Sodium (Protonix) 40 mg PO DAILY@1530 [facility] Stop: 12/30/19 15:29 Last Admin: 12/02/19 15:00 Dose: 40 mg Documented by: Sertraline HCl (Zoloft) 100 mg PO QAM [facility] Stop: 12/30/19 08:59 Last Admin: 12/03/19 08:05 Dose: 100 mg Documented by: Sodium Chloride (Carbon Nasal) 1 - 2 sprays NA PRN PRN PRN Reason: Nasal Dryness/Congestion Stop: 12/30/19 02:27 Sodium Chloride (Carbon Nasal) 1 sprays NA UD PRN PRN Reason: DRYNESS/NOSE BLEEDS Stop: 12/30/19 07:50 Topiramate (Topamax) 100 mg PO HS [facility] Stop: 12/30/19 21:59 Last Admin: 12/02/19 21:01 Dose: 100 mg Documented by: Topiramate (Topamax) 50 mg PO QAM [facility] Stop: 12/30/19 08:59 Last Admin: 12/03/19 08:05 Dose: 50 mg Documented by: Vitamin D (Vitamin D3) 2,000 units PO QAM TOSIN Stop: 12/30/19 08:59 Last Admin: 12/03/19 08:05 Dose: 2,000 units Documented by: Mental Health & Subst Abuse Tx Psychiatrist Name of Psychiatrist: [facility] - Marycruz Connor Psychiatrist's Date of Appointment with Psychiatrist: 12/07/19 Time of Appointment with Psychiatrist: 1:30 pm Psychiatric Appointment Comment: [address] [facility], [place], [place] Therapist Name of Therapist: [facility] - Ariane Therapist's Date of Therapist Appointment: 12/06/19 Time of Therapist Appointment: 10:30 am Therapy Appointment Comment: [address] [facility] [facility], [place], [place] Hostel Manager Name of Hostel Manager: [facility] - [place] CM - Milady Edwardjonnie Phone Number for Hostel Manager: [phone] Date of Appointment with Hostel Manager: 12/06/19 Case Management Appointment Comment: Zoom meeting Post Discharge Appointments Primary Care Physician Name Of Family Doctor: [facility] Time of Appointment with PCP: Please follow up as needed Provider Appointment Comment: [address] [place] [address] Partial or Psych Rehab Name of Partial or Psych Rehab: Skills Phone Number of Partial or Psych Rehab: [phone] Date of Appointment at Partial or Psych Rehab: 12/05/19 Partial or Psych Rehab Appointment Comment: [address] [facility] [place] [address] Contact Information Discharge Discharge Address: [address] [place] [address] Contact Information Comment: [address] (1) Hypothyroidism Hypothyroidism type: unspecified Qualified Code(s): E03.9 - Hypothyroidism, unspecified
[2019-12-03] MEDS: PANTOprazole 40 MG TAB PO SCH (17:18)
[2019-12-03] MEDS: TOPIRAMATE 100 MG TAB PO SCH (21:24)
[2019-12-04] MEDS: NYSTATIN POWDER 15GM BTL EXT SCH (07:43)
[2019-12-04] MEDS: CHOLECALCIFEROL 1,000 UNITS 25 MCG TAB PO SCH (07:44)
[2019-12-04] MEDS: BENZTROPINE MESYLATE 1 MG TAB PO SCH (07:44)
[2019-12-04] MEDS: TOPIRAMATE 50 MG TAB PO SCH (07:44)
[2019-12-04] MEDS: LEVOTHYROXINE SODIUM 100 MCG TABLET PO SCH (07:44)
[2019-12-04] MEDS: haloperidoL 5 MG TAB PO SCH (07:44)
[2019-12-04] MEDS: SERTRALINE HCL 100 MG TABLET PO SCH (07:45)
--- NOTE | 2019-12-04 10:53 | Discharge Summary ---
Date of Service December 04, 2019 History of Present Illness Patient presented to the ER reporting worsening mood in the context of multiple losses, as over the past 3 years, her mother, father, and brother have all . She has extensive outpatient services including a diversion plan, and had reportedly been assessed at the [facility], and had also been in our ER several days prior. Admission labs were unremarkable, and she signed in voluntarily and was continued on her home medications. On my assessment, she states that her dad 1 week ago, which caused worsening mood. She feels she has been depressed for "a long time," weeks to months. She endorses command auditory hallucinations, hearing the voices of her parents and brother telling her to jump out a window. She does not want to act on these, and manages them by "I say no!" The voices are distressing, and she currently feels unable to cope. She reports good support from her penitentiary staff, and says it helps her to talk to people. She denies paranoia, delusions, homicidal ideation, manic symptoms, and any recent medication changes. She reports good medication compliance and denies side effects. Physical Exam Psychiatric Orientation: alert and cooperative Apperance: appropriately dressed, appropriately groomed and appeared stated age Eye Contact: good eye contact Motor Behavior: steady gait and station and no abnormal motor movements Speech: normal rate/rhythm/volume of speech Affect: euthymic affect "Good." Thought Process: goal directed thought process and + concrete thought process Thought Content: reality based without delusions Suicidal Thoughts: denies suicidal thoughts Homicidal Thoughts: denies homicidal thoughts Hallucinations: no auditory hallucinations and no visual hallucinations Cognition: recent memory grossly intact, attention grossly intact and language grossly intact Estimated Intelligence: + below average estimated intelligence Insight: + limited insight Judgement: + limited judgement Vital Signs (Past 24 Hours) Last Vital Signs Temp 36.5 C 12/04/19 10:10 Pulse 70 12/04/19 10:10 Resp 18 12/04/19 10:10 BP 122/70 12/04/19 10:10 Pulse Ox 98 12/04/19 10:10 Principal Diagnosis Major depressive disorder, recurrent Mild intellectual disability Malingering Psychiatric Data The patient was hospitalized for 4 days. She was continued on her home medications without changes. Care was coordinated with her outpatient clinician, Christine Connor, PhD, LAP MACHINE TENDER at the [facility] psychological clinic, and diagnoses confirmed to be major depressive disorder, intellectual disability, and malingering. Records indicated a history of reporting auditory hallucinations as a way to get attention or seek hospitalization and a break from her penitentiary. She improved quickly with the support on the unit, and was able to talk about the recent of her father 2 weeks prior. She was observed to be sleeping and eating well, and took medications without difficulty. She attended and participated in groups and therapy. She reported resolution of auditory hallucinations and suicidal thoughts. Day of Discharge Assessment Staff report care has been coordinated with [facility] staff and the patient's behavioral health case manager. The patient has been out of her room, interacting with others, and attending groups and programming. She showered and did her laundry, and rated her mood a 10/10. On my assessment, she states her mood is "good," improved from admission, denies all hallucinations and suicidal thoughts, and feels ready to return to her penitentiary. She denies side effects to medications, but denies any safety concerns with discharge. Transition of Care Transition Of Care Record: was reviewed with the patient Advance Directives Advance Directives Information Provided: Yes Advance Directives: No Mental Health Advance Directive: No Living Will: No Power of Lasting Machine Operator: No Advance Directives Reason:: Declines as Mental Health Visit. Risk Factors Assessment Risk factors mitigated by admission to the inpatient unit, use of medications to target mood symptoms, involvement in groups and therapy, assistance processing recent psychosocial stressors, coordination of care with outpatient treatment team, working on healthy coping skills and a discharge safety plan. Patient is reporting improved mood, resolution of auditory hallucinations and suicidal thoughts, is sleeping, eating well, and tending to her ADLs independently, taking medications as prescribed, and has significant outpatient treatment supports in place. She is requesting discharge, and is no longer at acute risk of harm to herself, so can be managed as an outpatient at this time. She does not have risk factors for harm to others. Male: No : Yes Do You Have Access To A Gun?: No Health Problems: Yes Mental Health Diagnoses: Yes Substance Use Disorders: No Previous Attempt: No Previous Psychiatric Hospitalization: Yes Hopelessness: Yes Smoker: No Protective Factors Assessment : No Responsible for Young Children: No Employed: No Stable Relationships: Yes Supportive Family: No Good Rapport with Provider: Yes Tobacco Cessation at Discharge Tobacco Cessation Medication Prescribed at Discharge: Not Applicable/Non-Smoker Total Time Total Time Spent: Greater Than 30 Minutes Total Time Includes: Examination of the patient, Discharge Planning and Medication Reconciliation Discharge Data Lab Results 11/29/19 11/29/19 11/29/19 20:15 20:15 20:15 WBC RBC Hgb Hct MCV MCH MCHC RDW Std Deviation RDW Coeff of Alysia Plt Count MPV Immature Gran % (Auto) Neut % (Auto) Lymph % (Auto) [place] % (Auto) Eos % (Auto) Baso % (Auto) Immature Gran # (Auto) Neut # (Auto) Lymph # (Auto) [place] # (Auto) Eos # (Auto) Baso # (Auto) Sodium Potassium Chloride Carbon Dioxide Anion Gap BUN Creatinine Est Cr Clr Drug Dosing Est GFR ( Amer) Est GFR (Non-Af Amer) BUN/Creatinine Ratio Glucose Fasting Glucose Calcium Total Bilirubin AST ALT Alkaline Phosphatase Total Protein Albumin Globulin Albumin/Globulin Ratio Triglycerides Cholesterol LDL Cholesterol, Calc VLDL Cholesterol, Calc HDL Cholesterol Cholesterol/HDL Ratio TSH Urine Color Yellow Urine Appearance Clear Urine pH 7.0 Ur Specific [place] 1.005 Urine Protein Negative Urine Glucose (UA) Negative Urine Ketones Negative Urine Blood Negative Urine Nitrite Negative Urine Bilirubin Negative Urine Urobilinogen Negative Ur Leukocyte Esterase Negative Urine Test Negative Salicylates Urine Opiates Screen Neg Ur Methadone, Qual Neg Acetaminophen Urine Barbiturates Neg Ur Phencyclidine (PCP) Neg U Amphetamin/Meth Scrn Neg MDMA (Ecstasy) Screen Neg U Benzodiazepines Scrn Neg Ur Cocaine Metabolite Neg U Marijuana (THC) Screen Neg Ethyl Alcohol mg/dL 11/29/19 11/29/19 11/29/19 20:39 20:39 20:39 WBC 8.25 RBC 4.67 Hgb 14.1 Hct 42.0 MCV 89.9 MCH 30.2 MCHC 33.6 RDW Std Deviation 43.8 RDW Coeff of Alysia 13.4 Plt Count 189 MPV 9.7 Immature Gran % (Auto) 0.4 Neut % (Auto) 60.3 Lymph % (Auto) 26.9 Pickett % (Auto) 11.2 Eos % (Auto) 0.8 Baso % (Auto) 0.4 Immature Gran # (Auto) 0.03 H Neut # (Auto) 4.98 Lymph # (Auto) 2.22 Pickett # (Auto) 0.92 H Eos # (Auto) 0.07 Baso # (Auto) 0.03 Sodium 141 Potassium 3.7 Chloride 111 H Carbon Dioxide 25 Anion Gap 5.0 BUN 11 Creatinine 0.94 Est Cr Clr Drug Dosing Not Reportable Est GFR ( Amer) 82.0 Est GFR (Non-Af Amer) 70.7 BUN/Creatinine Ratio 11.7 Glucose 90 Fasting Glucose Calcium 9.0 Total Bilirubin 0.3 AST 20 ALT 40 Alkaline Phosphatase 105 Total Protein 7.7 Albumin 4.1 Globulin 3.6 Albumin/Globulin Ratio 1.1 Triglycerides Cholesterol LDL Cholesterol, Calc VLDL Cholesterol, Calc HDL Cholesterol Cholesterol/HDL Ratio TSH 0.663 Urine Color Urine Appearance Urine pH Ur Specific [place] Urine Protein Urine Glucose (UA) Urine Ketones Urine Blood Urine Nitrite Urine Bilirubin Urine Urobilinogen Ur Leukocyte Esterase Urine Test Salicylates < 1.7 L Urine Opiates Screen Ur Methadone, Qual Acetaminophen < 2 L Urine Barbiturates Ur Phencyclidine (PCP) U Amphetamin/Meth Scrn MDMA (Ecstasy) Screen U Benzodiazepines Scrn Ur Cocaine Metabolite U Marijuana (THC) Screen Ethyl Alcohol mg/dL 11/29/19 12/01/19 20:39 07:26 WBC RBC Hgb Hct MCV MCH MCHC RDW Std Deviation RDW Coeff of Alysia Plt Count MPV Immature Gran % (Auto) Neut % (Auto) Lymph % (Auto) [place] % (Auto) Eos % (Auto) Baso % (Auto) Immature Gran # (Auto) Neut # (Auto) Lymph # (Auto) [place]ett # (Auto) Eos # (Auto) Baso # (Auto) Sodium Potassium Chloride Carbon Dioxide Anion Gap BUN Creatinine Est Cr Clr Drug Dosing Est GFR ( Amer) Est GFR (Non-Af Amer) BUN/Creatinine Ratio Glucose Fasting Glucose 98 Calcium Total Bilirubin AST ALT Alkaline Phosphatase Total Protein Albumin Globulin Albumin/Globulin Ratio Triglycerides 163 H Cholesterol 206 H LDL Cholesterol, Calc 139 VLDL Cholesterol, Calc 33 HDL Cholesterol 34 Cholesterol/HDL Ratio 6 TSH Urine Color Urine Appearance Urine pH Ur Specific [place] Urine Protein Urine Glucose (UA) Urine Ketones Urine Blood Urine Nitrite Urine Bilirubin Urine Urobilinogen Ur Leukocyte Esterase Urine Test Salicylates Urine Opiates Screen Ur Methadone, Qual Acetaminophen Urine Barbiturates Ur Phencyclidine (PCP) U Amphetamin/Meth Scrn MDMA (Ecstasy) Screen U Benzodiazepines Scrn Ur Cocaine Metabolite U Marijuana (THC) Screen Ethyl Alcohol mg/dL < 3.0 Hospital Course (1) Auditory hallucinations: 11/29 -command auditory hallucinations to harm herself. Per records, has been diagnosed with schizophrenia in the past, versus personality disorder. Obtain records from [facility] psychological clinic to clarify diagnosis. -Continue haloperidol at home dose; fasting labs ordered for tomorrow. -Reality testing and reassurance. Work on healthy coping skills for managing voices. 11/30 -Patient still reports command auditory hallucination to harm herself. Per her psychiatrist, Christine Connor, PhD, LAP MACHINE TENDER at [facility] psychological clinic, the patient has been using these auditory hallucinations and suicidal ideations as malingering for secondary gains, including getting attention and care at the hospital and other care providers instead of staff from [facility]. Patient even acknowledged it to her psychiatrist that she had previously endorsed auditory hallucinations in the past at her appointment on 05/03/2019. Reports says that she thinks this is an effective way of making staff to listen to her and she likes the attention that came with it, including ER visits and hospitalizations. She made multiple 911 calls during holiday break last May and June since she felt bored with nothing to do as well as angry/frustrated with the staff. However at the appointment on 10/10/2019, patient reported that she "heard voices" when she was feeling bored and not getting adequate staff attention. Patient's medical records from November 2018 through October 2019 reviewed and she has been following up with her outpatient psychiatrist every 4 to 8 weeks. Her diagnosis is major depressive disorder, recurrent; intellectual disability; malingering. -Given patient's psychiatrist evaluations, patient might not have true auditory hallucinations at this point but we will monitor her suicidal ideation and auditory hallucinations for a couple more days since she claims that her father 2 weeks ago, which is inconsistent though (patient reported this provider and Dr. Hallman that his father 2 weeks ago but she reported to outreach and education social worker that 1-2 years ago he .) 12/01 and 12/02 - denied AH these 2 days (2) Depression: 11/29 -per records has been diagnosed with bipolar disorder and recurrent depression in the past. During previous admissions here, she has been depressed. Again, review outpatient records clarify diagnosis. -Continue sertraline 100 mg daily, and consider dose titration to target mood. -Current mood symptoms influenced by loss of multiple family members in the past several years. Encourage group attendance and participation, process grief, and work on healthy coping skills. Coordinate with outpatient supports/services. 11/30 -Continue sertraline 100 mg daily and titration might not be necessary if she malingered her symptoms at this point. Further evaluation should be done to assess her symptoms but she admits to improvement in her depressive symptoms today. 12/02 - continue treatment plan unchanged and prepare for upcoming discharge (3) Intellectual disability: Contact behavioral health case manager and clarify IQ/reading level. Present material to the patient at a level that she can understand. Outpatient clinician clarify diagnosis of mild ID. (4) Hypothyroidism: Continue home dose of levothyroxine. TSH normal. Mental Health & Subst Abuse Tx Psychiatrist Name of Psychiatrist: [facility] - [facility] Psychiatrist's Date of Appointment with Psychiatrist: 12/07/19 Time of Appointment with Psychiatrist: 1:30 pm Psychiatric Appointment Comment: Zoom Psychiatrist Release of Information: Obtained, Reviewed and Signed Therapist Name of Therapist: [facility] - [facility] Therapist's Date of Therapist Appointment: 12/06/19 Time of Therapist Appointment: 10:30 am Therapy Appointment Comment: Zoom Therapist Release of Information: Obtained, Reviewed and Signed Acute Care Nurse Practitioner Name of Acute Care Nurse Practitioner: [facility] - [place] CM - Milady Junior Phone Number for Acute Care Nurse Practitioner: [phone] Date of Appointment with Acute Care Nurse Practitioner: 12/06/19 Case Management Appointment Comment: Zoom meeting Acute Care Nurse Practitioner Release of Information: Obtained, Reviewed and Signed Post Discharge Appointments Primary Care Physician Name Of Family Doctor: Adina Abbott Primary Care Time of Appointment with PCP: Please follow up as needed Provider Appointment Comment: [address], [place] [address] Primary Care Release of Information: Obtained, Reviewed and Signed Partial or Psych Rehab Name of Partial or Psych Rehab: Kayleigh Phone Number of Partial or Psych Rehab: [phone] Date of Appointment at Partial or Psych Rehab: 12/05/19 Partial or Psych Rehab Appointment Comment: [address] [place] [address] Home Health Services Home Health Services:: None Smoking Cessation Counseling Tobacco Cessation Medication Prescribed at Discharge: Not Applicable/Non-Smoker Contact Information Discharge Discharge Address: [place] [address] Contact Information Comment: [facility] Home Discharge Plan Discharge Items Patient Disposition: Home - Self-Care Reason For Visit: BIPOLAR D/O Discharge Diagnosis: Major depressive disorder Intellectual disability Malingering Activity: Per Instructions section Non-emergency contact: Psychiatrist and Therapist Call non-emergency contact if: you have any medication questions and your symptoms worsen Follow-up/Referrals: Sulaiman Abbott, [Primary Care Provider] - Diet: Regular Addtl Attending Provider Instructions: SPECIAL CARE INSTRUCTIONS: 1. Follow through with your scheduled aftercare appointments. If unable to keep an appointment, please call to reschedule. 2. Take your medication only as prescribed. Medication should not be changed or stopped without the approval of your doctor. In the event of worsening symptoms or concerns about side effects, contact your doctor immediately. 3. Utilize new healthy coping skills, anger management skills, and stress management skills learned during your hospitalization. Journal feelings and process them with a support person. Identify stressors or situations that may result in relapse, deterioration or inappropriate behaviors and develop a plan to deal with those issues. 4. If your coping skills are ineffective and you are in crisis, contact your outpatient providers for direction. If unable to reach your providers, please call the CAN HELP LINE AT or go to the closest Emergency Room. 5. Avoid alcohol and un-prescribed drugs. 6. You have been provided with the Mental Health Advance Directives Pamphlet for your review. AFTERCARE APPOINTMENTS: * Please call your insurance company prior to your scheduled appointment to confirm your aftercare providers are covered. Take your insurance information to your appointments. WHO TO CALL AND WHEN: Medical Emergencies: For questions or emergencies related to your hospital stay, please contact the Inpatient Behavioral Health Unit at [phone]. A digital forensic examiner is on-call 11/01 for the Behavioral Health Unit for emergencies At any time you feel your situation is an emergency, you may also call 911 immediately. Your Doctors Instructions noted above were prepared by provider Ashley Hallman MD. Pending Studies at Discharge: No Stand-Alone Forms: My [facility], Smoking Cessation, Suicide Prevention Resources Medications and DC Order Prescriptions: Continued omeprazole 20 mg Capsule,Delayed Release(Dr/Ec) 20 mg PO DAILY RF: 0 nystatin 100,000 unit/gram Powder 1 applic TOPICAL BID RF: 0 haloperidol 5 mg Tablet 5 mg PO DAILY RF: 0 sertraline 100 mg Tablet 100 mg PO QAM RF: 0 levothyroxine 100 mcg Tablet 100 mcg PO DAILYBB RF: 0 haloperidol 10 mg Tablet 10 mg PO AMHS RF: 0 benztropine 1 mg Tablet 1 mg PO BID RF: 0 topiramate 100 mg Tablet 100 mg PO HS RF: 0 fluticasone propionate [Flonase Allergy Relief] 50 mcg/actuation [place],Suspension 2 spray INTRANASAL QPM RF: 0 sodium chloride [Saline Nasal] 0.65 % Aerosol,[place] 1 spray INTRANASAL DIRECTED PRN (Reason: DRYNESS/NOSE BLEEDS) RF: 0 topiramate 50 mg Tablet 50 mg PO QAM RF: 0 cholecalciferol (vitamin D3) [Vitamin D3] 2,000 unit Capsule 2,000 unit PO QAM RF: 0 Discharge Orders: Discharge Order (Routine); Ordered 12/04/19 Ordered By: Ashley Hallman Admission Data Admit Date/Time: 11/30/19 01:30 Attending Provider: Ashley Hallman Admit Provider: Regina Jeong Primary Care Provider: Sulaiman Abbott Other Interventions: Discharge Summary Assessment (RN) Last Done: 12/04/19 10:10 PSY Interdisciplinary Discharge Planning Last Done: 12/04/19 10:10 Coding Level of Care Code 17800 D/C day mgmt > 30 min Diagnoses Auditory hallucinations R44.0 Depression F32.9 Intellectual disability F79 Hypothyroidism E03.9 Hypothyroidism type: unspecified
== END 2019-12-04 10:58 | disposition home or self-care (01) | DRG 885 ==
LOC: ED 19:27 → 3S 11-30 01:30

== ENCOUNTER 2022-07-17 23:32 | Inpatient (IN) ==
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
[2022-07-18 00:03] LABS: Basophils # (auto) 0.04 K/uL (0-0.2); Basophils % (auto) 0.5 %; Eosinophils # (auto) 0.07 K/uL (0-0.50); Eosinophils % (auto) 0.9 %; Hematocrit (blood only) 42.3 % (37.0-47.0); Hemoglobin 14.8 g/dl (12.0-16.0); Immature Granulocytes # (auto) 0.01 K/uL (0.01-0.20); Immature Granulocytes % (auto) 0.1 %; Lymphocytes # (auto) 3.15 K/uL (1.2-3.4); Lymphocytes % (auto) 41.4 %; Mean Corpuscular Hemoglobin 31.2 pg (25.0-34.0); Mean Corpuscular Volume 89.1 fL (80.0-100.0); Mean Platelet Volume 9.4 fL (9.4-12.4); Monocytes # (auto) 0.83 K/uL (0.11-0.59); Monocytes % (auto) 10.9 %; Neutrophils % (auto) 46.2 %; Platelet Count 164 K/uL (130-400); RDW Coefficient of Variation 13.1 % (11.5-14.5); RDW Standard Deviation 42.8 fL (36.4-46.3); Red Blood Count 4.75 M/uL (4.20-5.40)
[2022-07-18 00:17] LABS: Albumin Level 4.4 gm/dl (3.4-5.0); Bilirubin,Total 0.5 mg/dl (0.2-1.0); Calcium 9.2 mg/dl (8.5-10.1); Potassium 3.6 mmol/L (3.5-5.1)
[2022-07-18 00:22] LABS: Acetaminophen < 3 ug/ml (10-30); Salicylate < 3.0 mg/dl (3.0-30)
[2022-07-18 00:23] LABS: Albumin Globulin Ratio 1.5 (0.9-2); BUN Creatinine Ratio 11.1 (10-20); Creatinine Clr Calc Pharmacy 75.7 ml/min; Est GFR (African American) 85.2 ml/min; Est GFR (Non-African American) 73.5 ml/min; Globulin 2.9 gm/dl (2.5-4.0); Total Protein 7.3 gm/dl (6.0-8.3)
[2022-07-18 00:23] LABS: Appearance Urine Clear (Clear); Bacteria Urine Automated Negative (Negative); Bilirubin Urine Negative (Negative); Blood Urine Negative (Negative); Color Urine Yellow; Epithelial Cell Urine Auto >30 /lpf (0-5); Glucose Urine UA Negative (Negative); Ketones Urine Negative (Negative); Leukocyte Esterase Urine 3+ (Negative); Nitrite Urine Negative (Negative); Protein Urine Negative (Negative); RBC Urine Automated 0-4 /hpf (0-4); Specific Gravity Urine 1.007 (1.000-1.030); Urobilinogen Urine Negative (Negative); WBC Urine Automated >30 /hpf (0-5); pH Urine 5.5 (4.5-7.5)
[2022-07-18 00:39] LABS: Thyroid Stimulating Hormone 8.164 uIu/ml (0.300-4.500)
[2022-07-18 00:52] LABS: Cast Urine Automated 0 /lpf (0-5)
[2022-07-18 00:59] LABS: Amphetamines+Metham, Urine Neg (Neg); Barbiturates, Urine Neg (Neg); Benzodiazepine, Urine Neg (Neg); Cocaine, Urine Neg (Neg); MDMA (Ecstacy), Urine Neg (Neg); Methadone, Urine Neg (Neg); Opiate, Urine Neg (Neg); Phencyclidine, Urine Neg (Neg)
[2022-07-18 01:12] LABS: T4 Free Thyroxine 0.73 ng/dl (0.61-1.60)
[2022-07-18] MEDS ORDERED: DOXYCYCLINE HYCLATE 100 MG CAP PO STA (01:28)
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
[2022-07-18] MEDS ORDERED: LACTATED RINGER'S 1,000 ML IV ONE (01:29)
[2022-07-18 04:01] LABS: Influenza A virus by PCR Negative (Neg); Influenza B virus by PCR Negative (Neg); RSV by PCR Negative (Neg)
[2022-07-18 04:06] LABS: SARS CoV2 RNA(COVID-19) Ceph POSITIVE (Negative)
[2022-07-18] MEDS ORDERED: PROMETHAZINE HCL 12.5 MG in SODIUM CHLORIDE 0.9% 50 ML IV PRN (04:25)
[2022-07-18] MEDS ORDERED: ACETAMINOPHEN 325 MG TAB PO PRN (04:25)
[2022-07-18] MEDS ORDERED: ARTIFICIAL TEARS OP PRN (04:52)
[2022-07-18] MEDS: TOPIRAMATE 100 MG TAB PO SCH ×2 (05:26→21:16)
[2022-07-18] MEDS ORDERED: LEVOTHYROXINE SODIUM 100 MCG TABLET PO SCH (06:30)
[2022-07-18 07:08] LABS: Basophils # (auto) 0.04 K/uL (0-0.2); Basophils % (auto) 0.6 %; Eosinophils # (auto) 0.08 K/uL (0-0.50); Eosinophils % (auto) 1.1 %; Hemoglobin 13.8 g/dl (12.0-16.0); Immature Granulocytes # (auto) 0.02 K/uL (0.01-0.20); Immature Granulocytes % (auto) 0.3 %; Mean Corpuscular Hemoglobin 30.9 pg (25.0-34.0); Mean Corpuscular Hgb Conc 34.5 g/dL (32.0-36.0); Mean Corpuscular Volume 89.7 fL (80.0-100.0); Mean Platelet Volume 9.6 fL (9.4-12.4); Monocytes # (auto) 0.63 K/uL (0.11-0.59); Monocytes % (auto) 8.8 %; Neutrophils # (auto) 3.38 K/uL (1.40-6.50); Neutrophils % (auto) 47.2 %; Platelet Count 157 K/uL (130-400); RDW Standard Deviation 42.8 fL (36.4-46.3); Red Blood Count 4.46 M/uL (4.20-5.40); White Blood Count 7.15 K/ul (4.8-10.8)
--- NOTE | 2022-07-18 08:36 | XRay Report ---
XR chest 1V portable CLINICAL HISTORY: Cough. COMPARISON STUDY: Chest radiograph December 14, 2021. FINDINGS: Lung volumes are normal. Lungs are clear. There is no pneumothorax or pleural effusion. Car diac size is normal. Mediastinal contours are normal. There is no evidence for pulmonary edema. IMPRESSION: No acute cardiopulmonary findings. ACT 112: Negative or not required by law. Electronically signed by: Micheal Norris M.D. 07/18/2022 8:34 AM
[2022-07-18] MEDS: TOPIRAMATE 50 MG TAB PO SCH (09:26)
[2022-07-18] MEDS: SERTRALINE HCL 100 MG TABLET PO SCH (09:26)
[2022-07-18] MEDS: DOCUSATE SODIUM 100 MG CAP PO SCH (09:26)
[2022-07-18] MEDS: ENOXAPARIN INJ 40 MG/0.4 ML SYR SQ SCH (09:26)
[2022-07-18] MEDS: BENZTROPINE MESYLATE 1 MG TAB PO SCH ×2 (09:26→21:14)
[2022-07-18] MEDS: haloperidoL 5 MG TAB PO SCH ×2 (09:26→21:15)
[2022-07-18] MEDS: LORATADINE 10 MG TAB PO SCH (15:21)
--- NOTE | 2022-07-18 16:56 | Hospitalist Progress Note ---
Date of Service July 18, 2022 Assessment & Plan (1) Pneumonia due to COVID-19 virus: Plan: Present on admission with cough associated with yellowish production sputum CXR showed No acute cardiopulmonary findings. Pt does not meet criteria for Remdesivir and dexamethasone since she saturates well on RA Currently on doxycycline Continue monitor closely Suicidal thought Auditory Hallucination History mood disorder with psychotic features Continue one to one sitter Psych consult pending Continue monitor closely Hypothyroidism TSH 8.1 will change levothyroxine to 100 mcg daily Check TSH in 4 weeks DVT prophylaxis. Lovenox subcu Full code Admission and Anticipated Discharge Date Admission Date: July 18, 2022 Subjective Pt was seen and examined for follow up of COVID 19 and auditory hallucination Lying in bed with no acute distress with 1 to 1 sitter Pt said that she feels ok she said that she is hearing voice that tells her to hurt herself she said that she can see her mother and dad that are standing by the TV Denies any chest pain, palpitation, dizziness and SOB Review of Systems Review of Systems: All systems reviewed & are unremarkable except as noted in Subjective Physical Exam Physical Exam: General- No acute distress Head- atraumatic Eyes- PERRL, EOMI, ENT- oropharynx clear Neck- supple, no JVD Lungs- clear to auscultation Heart- regular rhythm; no murmur Abdomen- normal bowel sounds, soft, nontender Extremities- no calf tenderness Neuro- alert, oriented x 3; PERRL, EOMI; no facial palsy; no dysarthria Skin- warm & dry Results & Data Results & Data ([facility]) Vital Signs (Past 12 Hours) Vital Signs Temp Pulse Resp BP Pulse Ox O2 Del Method 07/18/22 15:15 36.7 C 52 L 18 114/68 98 Room Air 07/18/22 10:39 Room Air 07/18/22 07:36 36.8 C 55 L 18 122/80 99 Room Air
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
[2022-07-18] MEDS ORDERED: cloNIDine HCL 0.1 MG TAB PO SCH (21:00)
[2022-07-18] MEDS ORDERED: hydrOXYzine HCl 10 MG TAB PO SCH (21:00)
[2022-07-18] MEDS ORDERED: PANTOprazole 40 MG TAB PO SCH (21:00)
[2022-07-18] MEDS: DOXYCYCLINE HYCLATE 100 MG CAP PO SCH (21:15)
[2022-07-19] MEDS ORDERED: LEVOTHYROXINE SODIUM 112 MCG TABLET PO SCH (06:30)
[2022-07-19] MEDS: DOXYCYCLINE HYCLATE 100 MG CAP PO SCH (10:01)
[2022-07-19] MEDS: BENZTROPINE MESYLATE 1 MG TAB PO SCH (10:01)
[2022-07-19] MEDS: haloperidoL 5 MG TAB PO SCH (10:01)
[2022-07-19] MEDS: DOCUSATE SODIUM 100 MG CAP PO SCH (10:01)
[2022-07-19] MEDS: SERTRALINE HCL 100 MG TABLET PO SCH (10:01)
[2022-07-19] MEDS: TOPIRAMATE 50 MG TAB PO SCH (10:02)
[2022-07-19] MEDS: ENOXAPARIN INJ 40 MG/0.4 ML SYR SQ SCH (10:02)
--- NOTE | 2022-07-19 12:19 | Psychiatric Progress Note ---
Date of Service July 19, 2022 Impression / Recommendations Impression Woman with a long history of mood symptoms and psychosis who reports suicidal auditory command hallucinations. These are chronic and no worse than usual. Although she is eager to report them, there is no evidence of much distress associated with them nor does it seem that she has acted on them in the past. (1) Schizoaffective disorder, bipolar type: Plan Ms. Geller says that she is at her psychiatric baselie and assessments and observations here indicate that is the case. She should certainly continue her psychiatric medications unchanged when she returns home. She does not require psychiatric treatment nor do i think she would likely benefit from it. Suicide Risk Level Suicide Risk Level: Low (q15 min observation checks) Risk Factors Assessment Male: No Do You Have Access To A Gun?: No Health Problems: Yes Mental Health Diagnoses: Yes Substance Use Disorders: No Previous Attempt: No Previous Psychiatric Hospitalization: Yes Hopelessness: No Interval History Identifying Information 51 y/o woman with schizoaffective disorder who came to the ED reporting her longstanding hallucinations and was admitted to the medical service when she was found to have CoVID. Chief Complaint "The same". Subjective Subjective Patient was assessed and interval progress reviewed with the psychiatric liaison nurse who met with the patient Physical Exam Psychiatric Orientation: alert and oriented x 3 Apperance: + disheveled Eye Contact: + fair eye contact Motor Behavior: + EPS Affect: + blunted affect Mood: + anxious mood Thought Process: + concrete thought process Suicidal Thoughts: denies suicidal thoughts, denies suicidal plan and denies suicidal intent Homicidal Thoughts: denies homicidal thoughts Hallucinations: + auditory hallucinations (Very chronic and stable auditory command hallucinations) Cognition: recent memory grossly intact and attention grossly intact Estimated Intelligence: + below average estimated intelligence Insight: + poor insight Judgement: + poor judgement Vital Signs (Past 24 Hours) Last Vital Signs Temp 36.6 C 07/19/22 07:45 Pulse 46 L 07/19/22 07:45 Resp 18 07/19/22 07:45 BP 118/77 07/19/22 07:45 Pulse Ox 98 07/19/22 07:45 O2 Del Method 07/19/22 07:45 Results & Data (U) Current Inpatient Medications Current Inpatient Medications: Current Inpatient Medications Acetaminophen (Acetaminophen 325 Mg Tab) 650 mg PO Q4H PRN PRN Reason: pain/fever Stop: 08/17/22 04:24 Artificial Tears (Artificial Tears) 1 drops OP QID PRN PRN Reason: Dry Eyes Stop: 08/17/22 04:51 Benztropine Mesylate (Benztropine Mesylate 1 Mg Tab) 1 mg PO BID [facility] Stop: 08/17/22 08:59 Last Admin: 07/19/22 10:01 Dose: 1 mg Clonidine HCl (Clonidine Hcl 0.1 Mg Tab) 0.1 mg PO HS [facility] Stop: 08/17/22 20:59 Last Admin: 07/18/22 21:15 Dose: 0.1 mg Docusate Sodium (Docusate Sodium 100 Mg Cap) 100 mg PO DAILY TOSIN Stop: 08/17/22 08:59 Last Admin: 07/19/22 10:01 Dose: 100 mg Doxycycline Hyclate (Doxycycline Hyclate 100 Mg Cap) 100 mg PO BID [facility] Stop: 07/25/22 20:59 Last Admin: 07/19/22 10:01 Dose: 100 mg Enoxaparin Sodium (Enoxaparin Inj 40 Mg/0.4 Ml Syr) 40 mg SQ QAM [facility] Stop: 08/17/22 08:59 Last Admin: 07/19/22 10:02 Dose: 40 mg Haloperidol (Haloperidol 5 Mg Tab) 15 mg PO BID TOSIN Stop: 08/17/22 08:59 Last Admin: 07/19/22 10:01 Dose: 15 mg Hydroxyzine HCl (Hydroxyzine Hcl 10 Mg Tab) 10 mg PO HS [facility] Stop: 08/17/22 20:59 Last Admin: 07/18/22 21:15 Dose: 10 mg Promethazine HCl 12.5 mg/ (Sodium Chloride) 50.5 mls @ 202 mls/hr IV Q6H PRN PRN Reason: Nausea And Vomiting Stop: 08/17/22 04:24 Levothyroxine Sodium (Levothyroxine Sodium 112 Mcg Tablet) 112 mcg PO DAILYBB [facility] Stop: 08/18/22 06:29 Last Admin: 07/19/22 05:56 Dose: 112 mcg Loratadine (Loratadine 10 Mg Tab) 10 mg PO DAILY@1500 [facility] Stop: 08/17/22 14:59 Last Admin: 07/18/22 15:21 Dose: 10 mg Pantoprazole Sodium (Pantoprazole 40 Mg Tab) 40 mg PO HS [facility] Stop: 08/17/22 20:59 Last Admin: 07/18/22 21:15 Dose: 40 mg Sertraline HCl (Sertraline Hcl 100 Mg Tablet) 100 mg PO QAM [facility] Stop: 08/17/22 08:59 Last Admin: 07/19/22 10:01 Dose: 100 mg Topiramate (Topiramate 100 Mg Tab) 100 mg PO HS TOSIN Stop: 08/17/22 04:24 Last Admin: 07/18/22 21:16 Dose: 100 mg Topiramate (Topiramate 50 Mg Tab) 50 mg PO QAM TOSIN Stop: 08/17/22 08:59 Last Admin: 07/19/22 10:02 Dose: 50 mg
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
[2022-07-19] MEDS: LORATADINE 10 MG TAB PO SCH (16:11)
[2022-07-22] MEDS ORDERED: LEVOTHYROXINE SODIUM 50 MCG TABLET PO SCH (06:30)
== END 2022-07-19 16:40 | disposition home or self-care (01) | DRG 885 ==
LOC: EDSEX → ED 23:32 → 3W 07-18 01:33